=== PATIENT | female | born 1970 | race Caucasian/White ===

== ENCOUNTER 2017-09-02 08:42 | Observation (INO) | payer OTHER, SELFPAY ==
[2017-08-29 09:24] LABS: Anion Gap 13 (5-15); BUN 10 mg/dL (7-18); BUN/Creat Ratio 15.2 RATIO (10-20); Calcium,Total 8.8 mg/dL (8.5-10.1); Chloride 103 mmol/L (98-107); Creatinine, Serum 0.66 mg/dL (0.55-1.02); EST Glomerular Filtration Rate 103 mL/min (>60); Est Glom Filt Rate - Afr Amer 124 mL/min (>60); Glucose 258 mg/dL (74-106); Potassium 3.6 mmol/L (3.5-5.1); Sodium Level 137 mmol/L (136-145)
[2017-08-29 09:33] LABS: Hemoglobin A1c 8.4 % (4.2-6.3)
--- NOTE | 2017-08-31 14:44 | PCM.HP.BLA ---
History and Physical Date of Admission: 09/01/17 Referring Provider: Chidi Thornton MD Primary Provider: Pastor Overton MD CC: evaluation breast reconstruction History of Present Illness: 46 year old woman presents for discussion of breast reconstruction after recent diagnosis of right breast cancer from a biopsy on 07/14/17. Pathology showed invasive lobular carcinoma. The estrogen receptors are positive and the progesterone receptors are positive and Her-2Neu was negative for overexpression. The initial mammogram was on 06/04/17. On 07/28/17, she underwent an MRI which showed a probable second primary on the right breast and the left breast was negative. There were increased axillary lymph nodes. A lymph node biopsy was done on 07/30/17 which was negative for carcinoma. With this recent diagnosis of right breast cancer, she is getting nervous about the possibility of developing breast cancer in her left breast sometime in her lifetime. Because of this cancer phobia, she is interested in a prophylactic mastectomy on the left. She would then proceed with bilateral breast reconstruction. Past Medical History: Right breast cancer. Diabetes Hypertension Past Surgical History: appendectomy MEDICATIONS Vitamin D3. Iron Sulfate. Losartan. Metformin. Sitagliptin. ALLERGIES None. Family History Summary: Colon cancer - Father and Mother and Sister. Hypertension - Mother and Sister. Lung cancer - Mother. negative for skin cancer. Social History: Alcohol Use - yes Drug Use - no Patient has never smoked. Risk Factors: Smoked Tobacco Use: Never smoker Smokeless Tobacco Use: Never Passive smoke exposure: no Drug use: no HIV high-risk behavior: no Caffeine use: 1 drinks per day Alcohol use: yes Type: wine or beer Has patient -- [place] need to cut down: no Been annoyed by complaints: no [place] guilty about drinking: no Needed eye legal librarian in the morning: no Comments: social Counseled to quit/cut down alcohol use: no Exercise: yes Seatbelt use: 100 % Sun Exposure: occasionally Family History Risk Factors: Family History of HI in females < 65 years old: no Family History of HI in males < 55 years old: no Dietary Counseling: yes Review of Systems General - Denies fever, fatigue and weight loss. Eyes - Denies eye pain. ENT - Denies nasal congestion and sore throat. CV - Denies chest pain or discomfort, fatigue, lightheadedness and shortness of breath with exertion. Resp - Denies cough and shortness of breath. GI - Denies nausea, vomiting, diarrhea and constipation. - Denies blood in urine and urinary frequency. MS - Denies joint pain, back pain, stiffness, muscle weakness and arthritis. Derm - Denies skin cancer. Neuro - Denies poor balance, headaches and weakness. Psych - Denies anxiety and depression. Endo - Denies excessive urination and excessive thirst. Has diabetes mellitus. Has recent diagnosis of right breast cancer. Heme - Denies bleeding and abnormal bruising. Vital Signs: Patient Profile: 46 Years Old Female Height: 66.50 inches Weight: 233 pounds BMI: 37.04 BSA: 2.15 Physical Exam General - well developed, well nourished, in no acute distress. Head - normocephalic and atraumatic. No suspicious lesions noted Eyes - PERRL/EOM intact, conjunctiva and sclera clear. Ears - No suspicious lesions noted Nose - No suspicious lesions noted Mouth - No suspicious lesions noted Neck - no masses, thyromegaly, or abnormal cervical nodes. Chest Wall/Breasts - Breasts are soft. There is some thickening in the inferolateral aspect right breast. In the area of the breast biopsy. No breast masses left breast. No axillary adenopathy. Stage III ptosis present with the nipple located at the lowest point of the breast. Distance from midclavicular line on the right to the nipple is 30 cm and from the nipple to the inframammary fold is 8 cm. Distance from midclavicular line on the left to the nipple is 31 cm and from the nipple to the inframammary fold is 8 cm. Breast width is 15 cm bilaterally. Lungs - clear bilaterally to auscultation. Heart - regular rate and rhythm. Abdomen - Soft and non distended. Some redundant skin and subcutaneous tissue between the umbilicus and the pubic area. No hernias noted. Pulses - radial pulses are palpable. Extremities - no clubbing, cyanosis, edema. No suspicious lesions noted Neurologic - cranial nerves II-XII grossly intact. Skin - no rashes. Cervical Nodes - no significant adenopathy. Axillary Nodes - no significant adenopathy. Psych - alert and cooperative; normal mood and affect; normal attention span and concentration. Assessment and Plan 1. Right breast cancer. 2. Cancer phobia left breast. 3. Planned acquired absence bilateral breasts. 4. Planned disproportion reconstructed breasts. The different types of breast reconstruction were discussed with the patient. They range from expanders/implants to autogenous tissue to a combination of the two. The centerless grinding machine adjuster/implants are a shorter procedure with a quicker recovery period. And therefore getting back to work and to her activities of daily living sooner. Using autogenous tissue is more complex with longer procedures and longer hospitalization and longer recovery periods. Additional surgery may be needed to debride and reshape the breasts as needed. Once everything has healed, then terminologist, there is minimal worry. With the implants, it is easier initially but terminologist there is more chance at revision surgery because of implant leakage or capsular scar tissue or asymmetry or increased pain. She initially thought about using autogenous tissue, but didn't like the idea of using the muscles for the bilateral reconstruction. She does Theo. She doesn't want to go to a tertiary center at this time for a microvascular free tissue transfer flap which spares most or all of the rectus abdominal muscle. So she has decided to proceed with the placement of tissue expanders followed by replacement cohesive gel implants. Because of the ptosis that is present, we will use a breast lift incision for the mastectomy to reshape the breast skin envelope. This entails a vertical incision and a horizontal incision. The Tzone area can be slow to heal which is not a problem usually unless she needs chemotherapy in a timely fashion. Because of the possible need for chemotherapy, it would be safer to proceed with the mastectomy using a vertical incision. There is no Tzone area to be problematic. Once the adjuvant therapy is done, can reshape the skin envelope if need be with a horizontal excision to complete the breast lift at the time of the removal of the centerless grinding machine adjuster with replacement cohesive gel implant. Another option for the patient but is a little more at risk than the expanders is to place breast implants at the time of the mastectomies. Therefore the vertical and horizontal incision would be done to basically have a breast lift incision at the same time as placement of cohesive gel implants. The weight of the implants would put the Tzone at a little more risk of developing wound healing problems. Because of that increased risk, I generally would put in a slightly smaller implant to minimize the increased pressure on the Tzone. By doing the tissue expanders first, it is safer and after expansion, there is the option of putting in a slightly larger implant. Surgery will be under general anesthesia with a surgical observation overnight stay in the hospital. She will have drains in for several days and be maintained on antibiotics until the drains are removed. She will wear an QUIANA wrap for chest wall compression. I will perform the prophylactic mastectomy at the same time as Dr. Thornton performing the mastectomy on the right and sentinel lymph node biopsy. This would save on operative time. We would use separate instruments and separate staff to prevent possible spread of cancer to noncancerous left side. After the mastectomies, would proceed with immediate bilateral breast reconstruction with placement of submuscular saline tissue expanders and placement of acellular dermal matrix graft for complete centerless grinding machine adjuster coverage. The patient was informed of the risks and complications of the procedure including alternatives to surgery. These were discussed with the patient personally. The patient voices understanding and wishes to proceed. Some of the risks and complications were included in a form from the [employer].
--- NOTE | 2017-08-31 14:48 | HP.PCM_ITS ---
History and Physical Date of Admission: 09/01/17 Referring Provider: Chidi Thornton MD Primary Provider: Pastor Overton MD CC: evaluation breast reconstruction History of Present Illness: 46 year old woman presents for discussion of breast reconstruction after recent diagnosis of right breast cancer from a biopsy on 07/14/17. Pathology showed invasive lobular carcinoma. The estrogen receptors are positive and the progesterone receptors are positive and Her-2Neu was negative for overexpression. The initial mammogram was on . On 07/28/17, she underwent an MRI which showed a probable second primary on the right breast and the left breast was negative. There were increased axillary lymph nodes. A lymph node biopsy was done on 07/30/17 which was negative for carcinoma. With this recent diagnosis of right breast cancer, she is getting nervous about the possibility of developing breast cancer in her left breast sometime in her lifetime. Because of this cancer phobia, she is interested in a prophylactic mastectomy on the left. She would then proceed with bilateral breast reconstruction. Past Medical History: Right breast cancer. Diabetes Hypertension Past Surgical History: appendectomy MEDICATIONS Vitamin D3. Iron Sulfate. Losartan. Metformin. Sitagliptin. ALLERGIES None. Family History Summary: Colon cancer - Father and Mother and Sister. Hypertension - Mother and Sister. Lung cancer - Mother. negative for skin cancer. Social History: Alcohol Use - yes Drug Use - no Patient has never smoked. Risk Factors: Smoked Tobacco Use: Never smoker Smokeless Tobacco Use: Never Passive smoke exposure: no Drug use: no HIV high-risk behavior: no Caffeine use: 1 drinks per day Alcohol use: yes Type: wine or beer Has patient -- [place] need to cut down: no Been annoyed by complaints: no [place] guilty about drinking: no Needed eye syrup maker cook in the morning: no Comments: social Counseled to quit/cut down alcohol use: no Exercise: yes Seatbelt use: 100 % Sun Exposure: occasionally Family History Risk Factors: Family History of PR in females < 65 years old: no Family History of PR in males < 55 years old: no Dietary Counseling: yes Review of Systems General - Denies fever, fatigue and weight loss. Eyes - Denies eye pain. ENT - Denies nasal congestion and sore throat. CV - Denies chest pain or discomfort, fatigue, lightheadedness and shortness of breath with exertion. Resp - Denies cough and shortness of breath. GI - Denies nausea, vomiting, diarrhea and constipation. - Denies blood in urine and urinary frequency. MS - Denies joint pain, back pain, stiffness, muscle weakness and arthritis. Derm - Denies skin cancer. Neuro - Denies poor balance, headaches and weakness. Psych - Denies anxiety and depression. Endo - Denies excessive urination and excessive thirst. Has diabetes mellitus. Has recent diagnosis of right breast cancer. Heme - Denies bleeding and abnormal bruising. Vital Signs: Patient Profile: 46 Years Old Female Height: 66.50 inches Weight: 233 pounds BMI: 37.04 BSA: 2.15 Physical Exam General - well developed, well nourished, in no acute distress. Head - normocephalic and atraumatic. No suspicious lesions noted Eyes - PERRL/EOM intact, conjunctiva and sclera clear. Ears - No suspicious lesions noted Nose - No suspicious lesions noted Mouth - No suspicious lesions noted Neck - no masses, thyromegaly, or abnormal cervical nodes. Chest Wall/Breasts - Breasts are soft. There is some thickening in the inferolateral aspect right breast. In the area of the breast biopsy. No breast masses left breast. No axillary adenopathy. Stage III ptosis present with the nipple located at the lowest point of the breast. Distance from midclavicular line on the right to the nipple is 30 cm and from the nipple to the inframammary fold is 8 cm. Distance from midclavicular line on the left to the nipple is 31 cm and from the nipple to the inframammary fold is 8 cm. Breast width is 15 cm bilaterally. Lungs - clear bilaterally to auscultation. Heart - regular rate and rhythm. Abdomen - Soft and non distended. Some redundant skin and subcutaneous tissue between the umbilicus and the pubic area. No hernias noted. Pulses - radial pulses are palpable. Extremities - no clubbing, cyanosis, edema. No suspicious lesions noted Neurologic - cranial nerves II-XII grossly intact. Skin - no rashes. Cervical Nodes - no significant adenopathy. Axillary Nodes - no significant adenopathy. Psych - alert and cooperative; normal mood and affect; normal attention span and concentration. Assessment and Plan 1. Right breast cancer. 2. Cancer phobia left breast. 3. Planned acquired absence bilateral breasts. 4. Planned disproportion reconstructed breasts. The different types of breast reconstruction were discussed with the patient. They range from expanders/implants to autogenous tissue to a combination of the two. The plush weaver/implants are a shorter procedure with a quicker recovery period. And therefore getting back to work and to her activities of daily living sooner. Using autogenous tissue is more complex with longer procedures and longer hospitalization and longer recovery periods. Additional surgery may be needed to debride and reshape the breasts as needed. Once everything has healed, then fpc, there is minimal worry. With the implants, it is easier initially but terminal gauger there is more chance at revision surgery because of implant leakage or capsular scar tissue or asymmetry or increased pain. She initially thought about using autogenous tissue, but didn't like the idea of using the muscles for the bilateral reconstruction. She does Theo. She doesn't want to go to a tertiary center at this time for a microvascular free tissue transfer flap which spares most or all of the rectus abdominal muscle. So she has decided to proceed with the placement of tissue expanders followed by replacement cohesive gel implants. Because of the ptosis that is present, we will use a breast lift incision for the mastectomy to reshape the breast skin envelope. This entails a vertical incision and a horizontal incision. The Tzone area can be slow to heal which is not a problem usually unless she needs chemotherapy in a timely fashion. Because of the possible need for chemotherapy, it would be safer to proceed with the mastectomy using a vertical incision. There is no Tzone area to be problematic. Once the adjuvant therapy is done, can reshape the skin envelope if need be with a horizontal excision to complete the breast lift at the time of the removal of the plush weaver with replacement cohesive gel implant. Another option for the patient but is a little more at risk than the expanders is to place breast implants at the time of the mastectomies. Therefore the vertical and horizontal incision would be done to basically have a breast lift incision at the same time as placement of cohesive gel implants. The weight of the implants would put the Tzone at a little more risk of developing wound healing problems. Because of that increased risk, I generally would put in a slightly smaller implant to minimize the increased pressure on the Tzone. By doing the tissue expanders first, it is safer and after expansion, there is the option of putting in a slightly larger implant. Surgery will be under general anesthesia with a surgical observation overnight stay in the hospital. She will have drains in for several days and be maintained on antibiotics until the drains are removed. She will wear an QUIANA wrap for chest wall compression. I will perform the prophylactic mastectomy at the same time as Dr. Thornton performing the mastectomy on the right and sentinel lymph node biopsy. This would save on operative time. We would use separate instruments and separate staff to prevent possible spread of cancer to noncancerous left side. After the mastectomies, would proceed with immediate bilateral breast reconstruction with placement of submuscular saline tissue expanders and placement of acellular dermal matrix graft for complete plush weaver coverage. The patient was informed of the risks and complications of the procedure including alternatives to surgery. These were discussed with the patient personally. The patient voices understanding and wishes to proceed. Some of the risks and complications were included in a form from the [employer].
[2017-09-01] VITALS (12 sets, daily range): BP systolic 114–163; BP diastolic 62–84; PULSE 79–112; RESP 16–18; TEMP 36.3–37.3; O2SAT 92–99; BMI 38.3; BMI 39.7
--- NOTE | 2017-09-01 | AXNB_PTH ---
PATIENT: TOI DIXON LOC: MS2 U#:[id number] AGE/SX: 46/F ROOM: [facility] [place] RE09/02/[address]: Dr. Ignacio Merrill MD : 1970 BED: 1 DIS: 09/03/2017 SPEC #: [id number] RECD: 09/01/17 13:17 STATUS: CIELO RESkip #: [id number] GILLES: 09/01/17 00:[address]: Ignacio Merrill DEPT: SURGICAL PATHOLOGY RECD BY: June Puga ENTERED: 09/01/17 14:49 SP TYPE: AX NODE BX OTHR DR: Pastor Overton Tissues: A - Axillary lymph node, NOS B - Right breast, NOS C - Left breast, NOS D - Skin of breast, NOS Procedures: Frozen Section (charge) Frozen Section Add'l ([facility]) Surgery Specimen Level IV Surgery Specimen Level V Frozen (no charge) HEADER OPERATION: Mastectomy, prophylactic PRE-OP DIAGNOSIS: Right breast cancer, cancer phobia left breast, planned acquired absence bilateral breasts TISSUE SUBMITTED: A ? Right breast axillary sentinel lymph node sent for FS 1314, B ? Right breast sent fresh, C ? Left breast, D ? Right breast skin biopsy site FROZEN SECTION DIAGNOSIS A. Right axillary sentinel lymph node, biopsy: Seven out of seven lymph nodes, negative for metastatic carcinoma. SJ:case 09/01/17 MICROSCOPIC DIAGNOSIS A. Right axillary sentinel lymph node, biopsy: Seven out of seven lymph nodes negative for metastatic carcinoma. B. Right breast, mastectomy: Invasive lobular carcinoma. Focal ductal carcinoma in situ. Atypical lobular hyperplasia. C. Left breast, mastectomy: Fibrocystic changes and intraductal hyperplasia without atypia. Focal microcalcifications. Negative for carcinoma in the sections examined. D. Right breast, skin biopsy site: Skin with underlying tissue with dermal fibrosis, consistent with scar. Negative for carcinoma. INVASIVE BREAST CANCER SUMMARY: (Including specimen A, B & D) Specimen ? total breast (including nipple and skin). Procedure ? total mastectomy (including nipple and skin). Lymph node sampling ? sentinel lymph nodes Specimen integrity ? single, intact specimen Specimen laterality - right Tumor site ? middle and lower quadrant of breast. Tumor size ? 1 x 0.7 x 0.5 cm Tumor focality ? single focus of invasive carcinoma Macroscopic and Microscopic extent of tumor: Skin ? invasive carcinoma does not invade into the dermis or epidermis. Nipple ? ductal carcinoma in situ does not involve nipple epidermis. Skeletal muscle ? skeletal muscle is present and is free of carcinoma. Ductal carcinoma in situ (DCIS) ? ductal carcinoma in situ is present. Extensive intraductal component (EIC) ? present. Size of DCIS ? 0.6 x 0.6 cm. Number of block with DCIS ? 1 Number of examined ? 12 Architectural pattern ? solid Nuclear features ? grade II-III (intermediate to high) Necrosis ? not identified. Other findings ? cancerization of lobules and atypical ductal hyperplasia.. Lobular carcinoma in situ (LCIS) ? not identified.. Histologic type of invasive carcinoma ? invasive lobular carcinoma, pleomorphic variant. Histologic Grade (Michelle grade): Glandular/tubular differentiation - score 3 Nuclear pleomorphism - score 3 Mitotic count ? score 2 Overall grade - 3 (score of 8) Margins ? Invasive carcinoma is 0.5 cm away from the closest inferior margin. See comment.. Lymph-Vascular invasion ? not identified Dermal lymph-vascular invasion - not identified Lymph nodes: Number of sentinel lymph nodes examined - 7 Total number of lymph nodes examined (sentinel and nonsentinel) - 7 Number of lymph nodes with macrometastases, micrometastases and isolated tumor cells - 0 Method of evaluation of sentinel lymph nodes - H & E, multiple levels and IHC. Distance metastasis ? not applicable Additional pathologic findings ? fibrocystic changes and intraductal hyperplasia.. Multifocal atypical lobular hyperplasia. . Ancillary studies - previously performed on section of tumor ([id number] / [id number]). ER ? positive (>95%, moderate to strong) KS ? positive (>95%, moderate to strong) Her2 kamlesh ? (negative) 0 Her2 by dual KIMBERLYN ? not performed Microcalcifications ? not identified Clinical history - Please make reference to previous specimen ([id number]) right breast, stereotactic needle core biopsy with diagnosis of invasive lobular carcinoma. PATHOLOGIC STAGE: pT1b pN0 Mx The above summary is in compliance with [employer] (CAP) Cancer Protocols Checklist and [place] [employer] Committee on Cancer (AJCC), Staging Manual, 8th Ed. SJ:rg 09/03/17 COMMENT A. The lymph nodes are negative for metastatic carcinoma on multiple H & E levels and immunohisto-chemical stains for cytokeratins ([id number]). B. Immunohistochemistry supports the diagnosis of invasive lobular carcinoma (block B4) and ductal carcinoma in situ (B11). Atypical ductal hyperplasia is also noted in the area of ductal carcinoma in situ. Ductal carcinoma in situ is present in the circulation sales representative sections submitted as away from the invasive carcinoma (block B11). Distance from margin can not be assessed as it is not grossly indentified. Overall, the margins are free of ductal carcinoma in situ. MICROSCOPIC DESCRIPTION Slides are reviewed. GROSS DESCRIPTION A - Received fresh for frozen section diagnosis labeled with the patient's name is a specimen designated right breast axillary sentinel lymph node. The specimen consists of a piece of adipose tissue containing multiple nodules consistent with lymph nodes measuring 6 x 4.5 x 2 cm. The lymph nodes measure 0.5 to 4 cm in greatest dimension and are submitted entirely for frozen section diagnosis. Event Manager sections are submitted as follows: 1 ? frozen section, two lymph nodes, 2 ? frozen section, two lymph nodes, 3 - frozen section, one bisected lymph node, 4 - frozen section, one lymph node, 5-7 ? one serially sectioned largest lymph node. / SJ:rg 09/01/17 B - Received fresh is one container labeled with the patient's name and designated right breast. The specimen consists of a mastectomy specimen consisting of breast tissue with overlying skin ellipse. The specimen is oriented by surgeon and gross is reviewed along with surgeon in person. The breast tissue measures 21 x 20 x 7 cm and the skin measures 14 x 17 cm and nipple measures 1.5 cm. The specimen is inked as follows: anterior ? yellow, posterior ? black, superior ? blue, inferior ? green, medial ? red and lateral ? orange. Serial sections reveal a biopsy cavity measuring 2 cm in greatest dimension and a tumor mass adjacent to the biopsy cavity measuring 1 x 0.7 x 0.5 cm. The mass is present in the middle and lower portion of the breast tissue. This mass is 1 cm away from the posterior margin and 0.7 cm away from the inferior margin. Sections of the rest of the specimen reveal kyle-yellow adipose cut surfaces mixed with kyle-white fibrous areas. Event Manager sections are submitted in 12 cassettes as follows: 1 ? nipple, entirely submitted, 2 ? perpendicular medial, lateral margin and skin, 3 ? perpendicular posterior and superior margin, 4 & 5 ? tumor with closest inferior margin, 6 & 7 ? biopsy cavity, tumor and biopsy cavity are submitted in entirety, 8-10 - circulation sales representative sections adjacent to the tumor and biopsy cavity, 11 & 12 - circulation sales representative sections away from the tumor and biopsy cavity. / SJ:case 09/02/17 C - Received in fixative is one container labeled with the patient's name and designated left breast. The specimen consists of a mastectomy specimen consisting of breast tissue with overlying skin ellipse. The breast tissue measures 19 x 18 x 6 cm and the overlying skin ellipse measures 11 x 4 cm and nipple measures 1.5 cm in greatest dimension. The specimen is inked as follows: superior ? black, inferior ? green, medial ? red, lateral ? orange, anterior ? yellow, posterior ? blue. Serial sections reveal yellow adipose cut surfaces mixed with scant kyle-white fibrous area. No mass lesion is identified. Also present in the container are four variable size pieces of yellow adipose tissue measuring in aggregate 5 x 3 x 0.5 cm. More dictation will follow after overnight fixation. / SJ:case 09/01/17 Event Manager sections are submitted in 12 cassettes as follows: 1 ? nipple, entirely submitted, 25 ? lateral portion of breast tissue, 6-9 ? middle portion of breast tissue, 10-12 ? medial portion of breast tissue (cassette 12 also contains the skin piece). / SJ:case 09/02/17 D - Received in fixative is one container labeled with the patient's name and designated right breast skin biopsy site. The specimen consists of a piece of skin with underlying tissue measuring 1 x 0.4 cm and up to 2 cm in thickness. The specimen is bisected and submitted entirely in one cassette. / SJ:case 09/01/17 TC:0 CPT: 00197 x3, 22153, 65308, 11173, 23971 x6
--- NOTE | 2017-09-01 | IMM_PTH ---
PATIENT: TOI DIXON LOC: MS2 U#:[id number] AGE/SX: 46/F ROOM: [facility] – [place] RE09/02/[address]: Dr. Ignacio Merrill MD : 1970 BED: 1 DIS: 09/03/2017 SPEC #: [id number] RECD: 09/03/17 13:53 STATUS: CIELO REQ #: [id number] GILLES: 09/01/17 00:[address]: Ignacio Merrill DEPT: IMMUNOHISTOCHEMISTRY RECD BY: June Puga ENTERED: 09/03/17 13:58 SP TYPE: IMMUNO OTHR DR: MD Pastor Abarca Tissues: A - Axillary lymph node, NOS B - Right breast, NOS Procedures: E-CAD (initial) CK7 (add) CK8 (add) E-CAD (add) Pankeratin (initial) Pankeratin (add) PHYSICIAN & INSTITUTION [place] [id number] SPECIMEN INFORMATION: Tissue Source: A ? Right breast axillary sentinel lymph node, B ? Right breast Clinical Info: Right breast cancer Specimen Number: [id number] A1-A7, B4, B11 CPT code: 67545 x2, 18759 x16 METHODOLOGY: Deparaffinized sections of prefer/formalin-fixed tissue or PAP/DQ stained slides are incubated with monoclonal/polyclonal antibodies/oligonucleotide probes. Localization is made via biotin free immunoperoxidase method. Appropriate controls are performed and reacted as expected. Results on target cell population are indicated in the following table: RESULTS: ANTIBODY / CLONE RESULT Block A1 AE1-3 (AE1/AE3/PCK26) negative CK7 (OV-TL12/30) negative Block A2 AE1-3 (AE1/AE3/PCK26) negative CK7 (OV-TL12/30) negative Block A3 AE1-3 (AE1/AE3/PCK26) negative CK7 (OV-TL12/30) negative Block A4 AE1-3 (AE1/AE3/PCK26) negative CK7 (OV-TL12/30) negative Block A5 AE1-3 (AE1/AE3/PCK26) negative CK7 (OV-TL12/30) negative Block A6 AE1-3 (AE1/AE3/PCK26) negative CK7 (OV-TL12/30) negative Block A7 AE1-3 (AE1/AE3/PCK26) negative CK7 (OV-TL12/30) negative Block B4 E-Cad (ECH-6) negative CK8 (06parrJ35) positive Block B11 E-Cad (ECH-6) positive CK8 ([id number]) positive These tests were developed and their performance characteristics determined by [facility]. They may not have been cleared or approved by the U.S. Food and Drug Administration. The FDA has determined that such clearance or approval is not necessary. INTERPRETATION: A. Right breast axillary sentinel lymph node, biopsy: Seven out of seven lymph nodes negative for metastatic carcinoma. B. Right breast: Invasive lobular carcinoma (B4). Ductal carcinoma in situ (B11). SJ:case 09/04/17
[2017-09-01 10:24] LABS: Internal QC Validated? YES +Cl - CLEAR BKGD; Pregnancy, Urine Negative Negative
[2017-09-01 10:36] LABS: Bedside Glucose 261 mg/dL (70-110)
[2017-09-01 10:58] LABS: Hemoglobin A1c 8.6 % (4.2-6.3)
[2017-09-01] MEDS: Isosulfan Blue 1% 5 ML Vial (12:24)
--- NOTE | 2017-09-01 12:25 | PCM.OPRPT ---
Problem List (1) Malignant neoplasm of upper-outer quadrant of right female breast Status: Acute Qualifiers: Estrogen receptor status: positive Qualified Code(s): C50.411 - Malignant neoplasm of upper-outer quadrant of right female breast; Z17.0 - Estrogen receptor positive status [ER+] Report of Operation Date of Procedure: 09/01/17 Pre-Operative Diagnosis: c50.411 malignant neoplasia of the upper outer quadrant of right breast and female estrogen receptor positive Post-Operative Diagnosis: same Surgery/Procedure Performed:: 1. 41141 Injection of 5 cc of Lymphazurin blue. 2. Mastectomy. 3. 72823 Gulliver lymph node biopsy Type of Anesthesia:: General Anesthesiologist: Berenice Garcia Estimated Blood Loss (mL): < 50 cc Fluids Replaced: 1 L Description of Procedure: Patient was brought into the operating room placed in the supine position under excellent general endotracheal intubation. The right nipple was injected with 7 cc of Lymphazurin blue and massaged for 5 minutes. Bilateral breasts were then sterilely prepped and draped in the usual fashion. Dr. Merrill will dictate and performed a prophylactic mastectomy on the left side. An oblique inverted incision was made around the right nipple areolar complex. Plasma blade was used to create flaps and a simple mastectomy on the right side. I took the dissection all the way down to the fascia. I then removed the breast from the pectoralis major muscle starting inferiorly where the rectus abdominis muscles met the pectoralis major muscle and then medially where the sternum was located. The breast was taken off rotated from the medial to lateral standpoint. I came to the lateral border of the pectoralis major muscle. I entered the clavipectoral fascia where I saw a large grouping of blue lymph nodes. I remove these with a harmonic dissector. I sent them to pathology and frozen section confirmed lymph nodes and all of them were negative. I remove the breast laterally down to the clavipectoral fascia and sent to pathology where the specimen was located. I made an elliptical incision around the previous biopsy site in the skin. A separate stab incision was made inferiorly a 15 round James-Belle drain was sutured to the skin and brought into the operating field. The skin was brought together with deep dermal stitches of 3-0 Vicryl in a running 4-0 Monocryl. The elliptical incision was brought together with deep dermal stitches a 3-0 Vicryl and then the skin was brought together with interrupted 5-0 nylon. Sterile dressings were applied by Dr. Merrill. The patient tolerated the procedure well. - Admit VTE Documentation VTE Present on Admission: No VTE Mechan Device Prophylaxis: SCD's VTE Pharm Prophylaxis ordered?: No Reason prophylaxis not ordered:: Treatment Not Indicated
[2017-09-01] MEDS: Cefazolin 2 GM in 0.9% Normal Saline 100 ML IV (12:30)
--- NOTE | 2017-09-01 14:01 | PCM.IMDPSTOP ---
Immediate Post-Op Note Date of Procedure: 09/01/17 Primary Surgeon/Physician: Ignacio Merrill pharmacy billing adjudicator: Zora Awan. Pre-Operative Diagnosis: 1. Right breast cancer. 2. Cancer phobia left breast. 3. Planned acquired absence bilateral breasts. 4. Planned disproportion reconstructed breasts. 5. Estrogen receptor positive status. Post-Operative Diagnosis: Same. Surgery/Procedure Performed:: Prophylactic mastectomy left breast. Description of Surgical Findings:: 46 year old woman presents for discussion of breast reconstruction after recent diagnosis of right breast cancer from a biopsy on 07/14/17. Pathology showed invasive lobular carcinoma. The estrogen receptors are positive and the progesterone receptors are positive and Her-2Neu was negative for overexpression. The initial mammogram was on 06/04/17. On 07/28/17, she underwent an MRI which showed a probable second primary on the right breast and the left breast was negative. There were increased axillary lymph nodes. A lymph node biopsy was done on 07/30/17 which was negative for carcinoma. With this recent diagnosis of right breast cancer, she is getting nervous about the possibility of developing breast cancer in her left breast sometime in her lifetime. Because of this cancer phobia, she is interested in a prophylactic mastectomy on the left. She would then proceed with bilateral breast reconstruction. Her HgbA1c was elevated at 8.6. We will proceed with the mastectomies. However the breast reconstruction is elective, and the risk of wound healing problems increase when the HgbA1c is > 8. So the breast reconstruction with placement of saline tissue expanders will not occur today. Once the HgbA1c dips below 8, we can proceed with her breast reconstruction surgery. Today the patient underwent injection of 5 cc of Lymphazurin blue and right mastectomy and sentinel lymph node biopsy by Dr. Thornton and prophylactic mastectomy left breast by Dr. Merrill. I used Jayde absorbable hemostat (2 vials, one in each breast). Reference Number - [id number]. Lot Number - [id number]. Expiration - May 02, 2022. Estimated Blood Loss: 100 ml. Specimen's removed: Left breast tissue to Pathology. Drains: Dick x2 (one in each breast). Type of Anesthesia:: General - Admit VTE Documentation VTE Present on Admission: No VTE Mechan Device Prophylaxis: SCD's VTE Pharm Prophylaxis ordered?: Yes
[2017-09-01 14:56] LABS: Bedside Glucose 248 mg/dL (70-110)
[2017-09-01 17:06] LABS: Bedside Glucose 247 mg/dL (70-110)
[2017-09-01] MEDS: oxyCODONE 5 MG Tablet 10 MG PO (19:16)
[2017-09-01] MEDS: Cefazolin 1 GM/50 ML BAG IV (20:13)
[2017-09-01] MEDS: Lactated Ringers 1,000 ML 60 ML IV (20:13)
[2017-09-01] MEDS: Docusate Sodium 100 MG Capsule PO (20:14)
[2017-09-01 22:31] LABS: Bedside Glucose 184 mg/dL (70-110)
--- NOTE | 2017-09-01 23:54 | PCM.OPRPT ---
Report of Operation Date of Procedure: 09/01/17 Pre-Operative Diagnosis: 1. Right breast cancer. 2. Cancer phobia left breast. 3. Planned acquired absence bilateral breasts. 4. Planned disproportion reconstructed breasts. 5. Estrogen receptor positive status. Post-Operative Diagnosis: Same. Surgery/Procedure Performed:: Prophylactic mastectomy left breast. Description of Surgical Findings:: 46 year old woman presents for discussion of breast reconstruction after recent diagnosis of right breast cancer from a biopsy on 07/14/17. Pathology showed invasive lobular carcinoma. The estrogen receptors are positive and the progesterone receptors are positive and Her-2Neu was negative for overexpression. The initial mammogram was on 06/04/17. On 07/28/17, she underwent an MRI which showed a probable second primary on the right breast and the left breast was negative. There were increased axillary lymph nodes. A lymph node biopsy was done on 07/30/17 which was negative for carcinoma. With this recent diagnosis of right breast cancer, she is getting nervous about the possibility of developing breast cancer in her left breast sometime in her lifetime. Because of this cancer phobia, she is interested in a prophylactic mastectomy on the left. She would then proceed with bilateral breast reconstruction. Her HgbA1c was elevated at 8.6. We will proceed with the mastectomies. However the breast reconstruction is elective, and the risk of wound healing problems increase when the HgbA1c is > 8. So the breast reconstruction with placement of saline tissue expanders will not occur today. Once the HgbA1c dips below 8, we can proceed with her breast reconstruction surgery. The patient was informed of the risks and complications of the procedure including alternatives to surgery. These were discussed with the patient personally. The patient voices understanding and wishes to proceed. Some of the risks and complications were included in a form from the [place] [employer]. I used Jayde absorbable hemostat (2 vials, one in each breast). Reference Number - [id number]. Lot Number - [id number]. Expiration - May 02, 2022. bioinformatics associate: Zora Awan. Type of Anesthesia:: General Anesthesiologist: Berenice Garcia Specimen's removed: Left breast tissue to Pathology. Drains: Dick x 2 (one in each breast). Estimated Blood Loss (mL): 100 ml. Fluids Replaced: 1 L Description of Procedure: Patient was seen in the preop area and in the sitting position, markings were made. I loren longitudinal markings around the nipple areolar complex and extending upward to where the new location of a nipple reconstruction would be placed and downward to just above the inframammary fold. She was then taken to the OR in supine position and was placed under general anesthesia. Her breasts were prepped and draped in the usual fashion. A soliman catheter was not placed because it is anticipated the length of time for the surgery will be less than 2 hours. SCD's were placed for DVT prophylaxis. Perioperative antibiotics were given intravenously. Dr. Thornton worked on the right side with separate instruments and separate staff. I worked on the left side with separate instruments and separate staff to prevent contamination of potential cancer cells from the cancerous right breast to the non-cancerous left breast. I infiltrated the markings on the skin with xylocaine with epinephrine. After waiting 5 minutes for the anesthetic to take effect, Incisions were made in a vertical longitudinal fashion encompassing the nipple areolar complex. I dissected the breast tissue from the subcutaneous tissue of the breast skin flap at the level of Moo's fascia. Dissection was carried down to the chest wall at the level of the pectoralis major muscle. Dissection was extended superiorly to the clavicle and medially to the sternum and inferiorly to the inframammary fold and laterally to the anterior axillary line. The breast tissue was then removed and sent to Pathology for analysis to rule out carcinoma. Hemostasis was obtained with electrocautery. The wound was irrigated with saline. I placed a size 15 Dick drain through a separate stab incision laterally and secured to the skin with 3-0 Nylon suture. I then sprayed Jayde absorbable hemostat into the breast wound to minimize seroma formation. The vertical breast incision was then closed with 3-0 Monocryl interrupted sutures for the deep dermis and subcutaneous tissue. The skin was approximated with 3-0 Vlock unidirectional barbed running subcuticular suture. This was followed by Histoacryl skin tissue adhesive. When Dr. Thornton was finished with the mastectomy and sentinel lymph node biopsy on the right, the vertical breast incision on the right was closed in a similar fashion. There was also small horizontal incision superiorly where the biopsy occurred that was closed with 3-0 Monocryl interrupted sutures for the deep dermis and subcutaneous tissue. The skin was approximated with 5-0 Nylon simple interrupted sutures. Hemostasis was obtained with electrocautery. The wound was irrigated with sterile water. A size 15 Dick drain was placed through a separate stab incision laterally and secured to the skin with 3-0 Nylon suture. Jayde absorbable hemostat was sprayed into the wound to minimize seroma formation. The vertical incision was closed in multiple layers with 3-0 Monocryl interrupted sutures for the deep dermis and subcutaneous tissue. The skin was approximated with 3-0 Vlock unidirectional barbed running subcuticular suture. This was followed by Histoacryl skin tissue adhesive. Kerlix gauze was applied to the breast incisions followed by a chest wall binder as compression to minimize seroma formation. Patient tolerated the procedure well and was sent to PACU in satisfactory condition. She will be sent upstairs for surgical observation overnight stay in the hospital. She will keep her head elevated during the initial postop period. She will have her drains in for 10-14 days and be maintained on antibiotics until the drains are removed. Her HgbA1c today was 8.6. So no elective breast reconstruction was done today. Will recheck it again in the next 1-2 months until it dips below 8 at which time we can proceed with her breast reconstruction surgery. Grafts/Implants Used: None. - Complications None. - Admit VTE Documentation VTE Present on Admission: No VTE Mechan Device Prophylaxis: SCD's VTE Pharm Prophylaxis ordered?: Yes Code Visit Surgery Charges CPT - 80253 ICD-10 - C50.911, F40.298, Z90.13, N65.1, Z17.0
[2017-09-02 04:20] VITALS: BP 106/65; PULSE 86; RESP 18; TEMP 36.6; O2SAT 93
[2017-09-02] MEDS: Cefazolin 1 GM/50 ML BAG IV ×3 (04:25→20:44)
[2017-09-02 05:54] LABS: Hematocrit 34.6 % (37-47); Hemoglobin 11.8 g/dl (12.0-15.0); Mean Corp Hgb Conc 34.1 g/gl (32-36); Mean Corpuscular Hgb 29.4 pg (27.0-32.0); Mean Corpuscular Volume 86.1 fL (81-99); Mean Platelet Vol. 9.1 fl (6.2-12.0); Platelet Count 273 K/mm3 (150-450); RBC Distribution Width CV 14.1 % (11.6-14.6); RBC Distribution Width SD 43.1 fl (35.1-43.9); Red Blood Count 4.02 M/mm3 (4.2-5.4); White Blood Count 8.8 K/mm3 (4.4-11.0)
[2017-09-02 05:58] LABS: Scan Indicated on CBC? Y/N NO
[2017-09-02] MEDS: oxyCODONE 5 MG Tablet 10 MG PO ×2 (06:19→17:18)
[2017-09-02] MEDS: Enoxaparin 40 MG/0.4 ML Syringe SC (06:20)
[2017-09-02 06:21] LABS: Bedside Glucose 267 mg/dL (70-110)
[2017-09-02 06:23] LABS: Anion Gap 8 (5-15); BUN 11 mg/dL (7-18); BUN/Creat Ratio 14.7 RATIO (10-20); Chloride 104 mmol/L (98-107); Creatinine, Serum 0.75 mg/dL (0.55-1.02); EST Glomerular Filtration Rate 89 mL/min (>60); Est Glom Filt Rate - Afr Amer 107 mL/min (>60); Estimated Creatinine Clearance 80.94 ml/min; Glucose 282 mg/dL (74-106); Potassium 3.6 mmol/L (3.5-5.1); Prealbumin 20.4 mg/dL (20.0-40.0); Sodium Level 137 mmol/L (136-145)
[2017-09-02] MEDS: diazePAM 5 MG Tablet PO (08:21)
[2017-09-02] MEDS: metFORMIN HCl 1,000 MG Tablet 1000 MG PO (08:24)
--- NOTE | 2017-09-02 08:42 | PCM.PN.SRG ---
Patient Problems: Active and Suspected Problems (Last Reviewed 08/17/17 @ 13:48 by Chidi Thornton MD) Malignant neoplasm of upper-outer quadrant of right female breast (Acute) Subjective: Patient evaluated resting comfortably in bed. She notes minimal discomfort. She notes most of her discomfort is in her right axilla. Patient denies nausea, vomiting. - Physical Exam General: Alert, Oriented x3, Cooperative Lungs: Clear to auscultation, Normal air movement Cardiovascular: Regular rate, No murmurs Skin: Incision - Bilateral breast incision- c/d/i. Dressing was changed. No necrosis, erythema or active drainage noted. JANESSA drains intact. SA fluid noted. Vital Signs Temp Pulse Resp BP Pulse Ox 97.9 F 86 18 106/65 93 09/02/17 04:20 09/02/17 04:20 09/02/17 04:20 09/02/17 04:20 09/02/17 04:20 Oxygen Delivery Method Room Air Weight: 232 lb 12.93 oz Body Mass Index (BMI) 39.7 Intake and Output for Last 24 Hours 08/31/17 09/01/17 09/02/17 23:59 23:59 23:59 Intake Total 1500 / 1500 883 / 883 Output Total 375 / 375 2285 / 2285 Balance 1125 / 1125 -1402 / -1402 Laboratory Tests Past 24 Hrs 09/01/17 09/01/17 09/02/17 10:00 10:30 05:28 WBC RBC Hgb Hct MCV MCH MCHC RDW RDW Differential Plt Count MPV Sodium 137 Potassium 3.6 Chloride 104 Carbon Dioxide 25.0 Anion Gap 8 BUN 11 Creatinine 0.75 Estim Creat Clear Calc 80.94 Est GFR (MDRD) Af Amer 107 Est GFR (MDRD) Non-Af 89 BUN/Creatinine Ratio 14.7 Glucose 282 H Hemoglobin A1c 8.6 H Calcium 8.0 L Prealbumin 20.4 Urine Test Negative 09/02/17 05:28 WBC 8.8 RBC 4.02 L Hgb 11.8 L Hct 34.6 L MCV 86.1 MCH 29.4 MCHC 34.1 RDW 14.1 RDW Differential 43.1 Plt Count 273 MPV 9.1 Sodium Potassium Chloride Carbon Dioxide Anion Gap BUN Creatinine Estim Creat Clear Calc Est GFR (MDRD) Af Amer Est GFR (MDRD) Non-Af BUN/Creatinine Ratio Glucose Hemoglobin A1c Calcium Prealbumin Urine Test POC Glucose 09/02/17 09/01/17 09/01/17 06:15 22:12 16:50 POC Glucose 267 H 184 H 247 H 09/01/17 09/01/17 14:51 10:16 POC Glucose 248 H 261 H Assessment/Plan Active and Suspected Problems (Last Reviewed 08/17/17 @ 13:48 by Chidi Thornton MD) Malignant neoplasm of upper-outer quadrant of right female breast (Acute) I am following this patient in conjunction with Dr. Thornton S/p Bilateral mastectomy with right axillary sentinel lymph node biopsy for right breast cancer. Dr. Merrill performed a prophylactic left mastectomy Pain fairly well controlled Patient seems to be progressing very nicely Probable discharge pending Dr. Merrill's recommendations We will continue to monitor this patient
[2017-09-02 08:55] VITALS: BP 144/79; PULSE 95; RESP 18; TEMP 37.2; O2SAT 96
[2017-09-02] MEDS: Docusate Sodium 100 MG Capsule PO ×2 (10:00→20:41)
[2017-09-02] MEDS: LINAGLIPTIN 5 MG TABLET PO (10:00)
[2017-09-02] MEDS: Losartan Potassium 50 MG Tablet PO (10:00)
[2017-09-02] MEDS: Glucerna Shake 120 ML LIQUID PO ×4 (10:07→20:40)
[2017-09-02] MEDS: Ferrous Sulfate 325 MG Tablet PO (11:46)
[2017-09-02] MEDS: Lactated Ringers 1,000 ML 60 ML IV (11:48)
[2017-09-02 12:01] LABS: Bedside Glucose 324 mg/dL (70-110)
[2017-09-02 13:38] VITALS: BP 111/77; PULSE 94; RESP 18; TEMP 37.4; O2SAT 96
--- NOTE | 2017-09-02 16:36 | NURSING ---
AMBULATED IN HALLWAYS WITH SIG OTHER.
--- NOTE | 2017-09-02 18:02 | CON.PCM_ITS ---
Reason for Consult Date of Consultation: 09/02/17 Reason for Consultation: Medical consultation History of Present Illness: The patient is a 46 y/o F w/ PMHx: R sided Breast CA, Diabetes mellitus type II , HTN, Obesity, Fe Deficiency Anemia who presents to the [facility] for planned prophylactic mastectomy L breast, R breast mastectomy w/ lymph node dissection and then transition to bilateral breast reconstruction per Dr. Merrill and Dr. Thornton. The patient has diagnosis for R breast CA from Bx performed on 07/14/17 with pathology demonstrating invasive lobular carcinoma w/ ER +, HI +, Her-2Neu -. She had prior MRI which showed a probable secondary primary in the R breast and the left breast was negative for findings with noted increased axillary lymph nodes with Bx performed which was negative. She decided to have prophylactic mastectomy. Past Medical History Past Medical History (Chronic Problems): Chronic Problems (Last Reviewed 08/17/17 @ 13:48 by Chidi Thornton MD) HTN (hypertension) (Chronic) Allergies No Known Allergies Allergy (Verified 08/26/17 14:10) Home Medications: Ambulatory Orders Medication Instructions Recorded cholecalciferol (vitamin D3) 5,000 5,000 unit PO ONCE 06/30/17 unit capsule ferrous sulfate 325 mg (65 mg 65 mg PO DAILY tab 06/30/17 iron) tablet losartan 100 mg tablet 50 mg PO QDAY 06/30/17 metformin 500 mg tablet 1,000 mg PO DAILY 06/30/17 sitagliptin 100 mg tablet 100 mg PO QDAY 06/30/17 diazepam 5 mg tablet See Label Instructions PO .4/day 08/31/17 PRN #30 tab Surgical History: - - Appendectomy, recent intervention per Dr. Merrill w/ prophylactic mastectomy L breast, R breast mastectomy w/ lymph node dissection,. 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 Denies: Chills, Fever, Weight Change HEENT: Denies: Head Aches, Sinus Congestion, Sinus Drainage Cardiovascular: Reports: Chest Pain. Denies: Palpitations Respiratory: Denies: Cough, Shortness of breath at rest, Sputum production Gastrointestinal: Denies: Abdominal Pain, Nausea, Vomiting Genitourinary: Denies: Dysuria Musculoskeletal: Denies: Joint Pain, Joint Tenderness Skin: Reports: Skin Changes. Denies: Rash, Wounds Neurological: Denies: Numbness, Tingling, Focal weakness Psychiatric: Reports: Anxiety. Denies: Depression, Homicidal Ideations, Suicidal Ideations Hematologic/ Lymphatic: Denies: Easy Bruising, Easy Bleeding Patient Problems: Active and Suspected Problems (Last Reviewed 08/17/17 @ 13:48 by Chidi Thornton MD) Malignant neoplasm of upper-outer quadrant of right female breast (Acute) Subjective: Seated upright in bed, fatigued appearing, notes recent pain regimen so feeling improved. Objective: Physical Examination: General: awake, alert, oriented x 3 and cooperative, seated upright in bed in no apparent distress. Skin: normal color, turgor, no icterus, cyanosis, chest dressing in place s/p mastectomy, JPs in place. HEENT: AT/NC, EOMI, PERRLA, mildly dry MM, no carotid bruits or JVD noted. Lungs: CTA bilaterally, moderate effort, mild decrease BL bases, no rales, ronchi or wheezing. Heart: Regular rate and rhythm; no gallop, rub audible. Abdomen: soft, obese, NTTP, ND, normal BS, no HSM; however, difficult examination given abdominal binder. Extremities: no cyanosis, clubbing, mild BL LE ankle edema. Neurological: patient awake, alert, oriented x 3; cognitive function intact; pupils equally reactive to light and accomodation; cranial nerves II-XII grossly normal, moving all 4 extremities, no focal deficits, strength moderately to severely globally decreased given recent intervention. Psychiatric: affect appears fatigued, no acute evidence of depressive or anxiety feelings. - Physical Exam Vital Signs Temp Pulse Resp BP Pulse Ox 99.3 F H 94 18 111/77 96 09/02/17 13:38 09/02/17 13:38 09/02/17 13:38 09/02/17 13:38 09/02/17 13:38 Oxygen Flow Rate 4 Oxygen Delivery Method Room Air Weight: 232 lb 12.93 oz Body Mass Index (BMI) 39.7 Intake and Output for Last 24 Hours 08/31/17 09/01/17 09/02/17 23:59 23:59 23:59 Intake Total 1500 / 1500 1809 / 1809 Output Total 375 / 375 2955 / 2955 Balance 1125 / 1125 -1146 / -1146 Laboratory Tests Past 24 Hrs 09/02/17 09/02/17 05:28 05:28 WBC 8.8 RBC 4.02 L Hgb 11.8 L Hct 34.6 L MCV 86.1 MCH 29.4 MCHC 34.1 RDW 14.1 RDW Differential 43.1 Plt Count 273 MPV 9.1 Sodium 137 Potassium 3.6 Chloride 104 Carbon Dioxide 25.0 Anion Gap 8 BUN 11 Creatinine 0.75 Estim Creat Clear Calc 80.94 Est GFR (MDRD) Af Amer 107 Est GFR (MDRD) Non-Af 89 BUN/Creatinine Ratio 14.7 Glucose 282 H Calcium 8.0 L Prealbumin 20.4 POC Glucose 09/02/17 09/02/17 09/01/17 11:45 06:15 22:12 POC Glucose 324 H 267 H 184 H Assessment/Plan Active and Suspected Problems (Last Reviewed 08/17/17 @ 13:48 by Chidi Thornton MD) Malignant neoplasm of upper-outer quadrant of right female breast (Acute) The patient is a 46 y/o F w/ PMHx: R sided Breast CA, Diabetes mellitus type II , HTN, Obesity, Fe Deficiency Anemia who presents to the [facility] for planned prophylactic mastectomy L breast, R breast mastectomy w/ lymph node dissection and then transition to bilateral breast reconstruction per Dr. Merrill and Dr. Thornton. (1) R Breast Invasive Lobular Carcinoma: Recent Dx R breast CA from Bx performed on 07/14/17 with pathology demonstrating invasive lobular carcinoma w/ ER +, HI +, Her-2Neu -. MRI showed a probable secondary primary in the R breast and the left breast was negative for findings with noted increased axillary lymph nodes with Bx performed which was negative. 09/01/17 prophylactic mastectomy L breast, R breast mastectomy w/ lymph node dissection performed. Pain regimen, bowel regimen, DVT Prophylaxis given recent surgery per discretion of Surgery services. (2) Diabetes mellitus type II: Noted hyperglycemia, 200-300 range, HgBA1c pending, in the interim place on low dose levemir 5 mg SC BID, hold oral home regimen, ADA diet, accu checks w/ ISS. Mag pending. (3) Hypertension: Continue home regimen including losartan, PRN hydralazine. (4) Fe Deficiency Anemia: 09/02/17 Hgb 11.8, maintain on home Fe supplementation. (5) Obesity: Weight loss and lifestyle changes encouraged. (6) DVT Prophylaxis: SCDs, lovenox per Surgery discretion. Code Visit Office Visits / Consults: [id number] IP Consult L3
[2017-09-02 18:46] LABS: Bedside Glucose 299 mg/dL (70-110)
[2017-09-02 19:00] LABS: Hemoglobin A1c 8.8 % (4.2-6.3)
--- NOTE | 2017-09-02 20:07 | PCM.PN.SRG ---
Subjective: Postop #1 Complains of incisional pain. She is a little unsteady on her feet with ambulation. - Physical Exam General: Alert, Oriented x3 HEENT: PERRLA, EOMI Neck: Supple Lungs: Clear to auscultation Cardiovascular: Regular rate, Regular Rhythm Abdomen: Soft, Non-Distended Skin: Incision - bilateral breast incisions are dry and intact. No clinical evidence of hematoma. No evidence of vascular compromise to the breast skin flaps. Neurological: Cranial nerves II-XII grossly intact Psych/Mental Status: Normal Affect, Appropriate Vital Signs Temp Pulse Resp BP Pulse Ox 99.3 F H 94 18 111/77 96 09/02/17 13:38 09/02/17 13:38 09/02/17 13:38 09/02/17 13:38 09/02/17 13:38 Oxygen Flow Rate 4 Oxygen Delivery Method Room Air Weight: 232 lb 12.93 oz Body Mass Index (BMI) 39.7 Intake and Output for Last 24 Hours 08/31/17 09/01/17 09/02/17 23:59 23:59 23:59 Intake Total 1500 / 1500 1809 / 1809 Output Total 375 / 375 2955 / 2955 Balance 1125 / 1125 -1146 / -1146 Drainage 75 ml yesterday. Laboratory Tests Past 24 Hrs 09/02/17 09/02/17 09/02/17 05:28 05:28 05:28 WBC 8.8 RBC 4.02 L Hgb 11.8 L Hct 34.6 L MCV 86.1 MCH 29.4 MCHC 34.1 RDW 14.1 RDW Differential 43.1 Plt Count 273 MPV 9.1 Sodium 137 Potassium 3.6 Chloride 104 Carbon Dioxide 25.0 Anion Gap 8 BUN 11 Creatinine 0.75 Estim Creat Clear Calc 80.94 Est GFR (MDRD) Af Amer 107 Est GFR (MDRD) Non-Af 89 BUN/Creatinine Ratio 14.7 Glucose 282 H Hemoglobin A1c 8.8 H Calcium 8.0 L Prealbumin 20.4 POC Glucose 09/02/17 09/02/17 09/02/17 18:40 11:45 06:15 POC Glucose 299 H 324 H 267 H 09/01/17 22:12 POC Glucose 184 H Assessment/Plan 1. Right breast cancer. 2. Cancer phobia left breast. 3. Planned acquired absence bilateral breasts. 4. Planned disproportion reconstructed breasts. 5. Estrogen receptor positive status. 6. s/p prophylactic mastectomy left breast by Dr. Merrill. 7. s/p injection of 5 cc of Lymphazurin blue and mastectomy and sentinel lymph node biopsy by Dr. Thornton. Patient has some incisional pain and is a little unsteady on her feet. Incisions are dry and intact. No clinical evidence of hematoma. Breast skin flaps show no evidence of vascular compromise. Continue ambulation with assistance. Anticipate discharge tomorrow after weaning to po analgesia after being more steady on her feet. Continue antibiotics until the drains are removed. Prealbumin was 20.4. Encourage nutritional supplementation with protein to help the healing process.
[2017-09-02 20:23] VITALS: BP 143/82; PULSE 96; RESP 16; TEMP 37.1; O2SAT 95
[2017-09-02] MEDS: Acetaminophen 325 MG Tablet 650 MG PO (20:40)
[2017-09-02] MEDS: Temazepam 15 MG Capsule PO (20:40)
[2017-09-02 20:46] LABS: Bedside Glucose 290 mg/dL (70-110)
[2017-09-03 03:56] VITALS: BP 158/68; PULSE 72; RESP 18; TEMP 36.6; O2SAT 97
[2017-09-03] MEDS: Lactated Ringers 1,000 ML 60 ML IV (03:59)
[2017-09-03] MEDS: Cefazolin 1 GM/50 ML BAG IV ×2 (03:59→12:28)
[2017-09-03] MEDS: Enoxaparin 40 MG/0.4 ML Syringe SC (04:01)
[2017-09-03] MEDS: Acetaminophen 325 MG Tablet 650 MG PO (04:14)
--- NOTE | 2017-09-03 06:50 | PCM.PN.HOSP ---
Patient Problems: Active and Suspected Problems (Last Reviewed 08/17/17 @ 13:48 by Chidi Thornton MD) Malignant neoplasm of upper-outer quadrant of right female breast (Acute) Subjective: Patient with no acute events overnight per self and per nursing report. She slept well she notes and pain is well controlled on oral regimen only. Patient notes intention for discharge to home today. Did discuss diabetes and elevated blood sugars with Levemir addition while inpatient with need for continued compliance with home oral medications and diet to assure improved wound healing. Magnesium obtained and normal level. Encouraged routine activity. Patient denies fevers, chills, nausea, emesis, abdominal pain or dyspnea. Objective: Physical Examination: General: awake, alert, oriented x 3 and cooperative, seated upright in bed in no apparent distress. Skin: normal color, turgor, no icterus, cyanosis, chest dressing in place s/p mastectomy, JPs in place. HEENT: AT/NC, EOMI, PERRLA, improved MMM. Lungs: CTA bilaterally, moderate effort, mild decrease BL bases, no rales, ronchi or wheezing although difficult given binder. Heart: Regular rate and rhythm; no gallop, rub audible. Abdomen: soft, obese, NTTP, difficult examination given abdominal binder. Extremities: no cyanosis, clubbing, mild BL LE ankle edema. Neurological: patient awake, alert, oriented x 3; cognitive function intact; pupils equally reactive to light and accomodation; cranial nerves II-XII grossly normal, moving all 4 extremities, no focal deficits, strength improving, moderately globally decreased given recent intervention. Psychiatric: affect appears normal, notes slept well, no acute evidence of depressive or anxiety feelings. Vitals/I&O's: Vital Signs Temp Pulse Resp BP Pulse Ox 97.8 F 72 18 158/68 H 97 09/03/17 03:56 09/03/17 03:56 09/03/17 03:56 09/03/17 03:56 09/03/17 03:56 Oxygen Flow Rate 4 Oxygen Delivery Method Room Air Weight: 232 lb 12.93 oz Body Mass Index (BMI) 39.7 Intake and Output for Last 24 Hours 09/01/17 09/02/17 09/03/17 23:59 23:59 23:59 Intake Total 1500 / 1500 1809 / 1809 1065 / 1065 Output Total 375 / 375 3000 / 3000 50 / 50 Balance 1125 / 1125 -1191 / -1191 1015 / 1015 Laboratory Results 09/02/17 05:28: Hemoglobin A1c 8.8 H 09/02/17 11:45: POC Glucose 324 H 09/02/17 18:40: POC Glucose 299 H 09/02/17 20:39: POC Glucose 290 H Current Medications Acetaminophen (Tylenol) 650 mg PO Q6H PRN PRN PRN Reason: Non-cardiac pain (mod-severe) Last Admin: 09/03/17 04:14 Dose: 650 mg Dextrose (D50w Syringe) 0 gm IV X1 PRN; Protocol PRN Reason: Hypoglycemia Diazepam (Valium) 5 mg PO 4X/DAY PRN PRN PRN Reason: SPASMS Last Admin: 09/02/17 08:21 Dose: 5 mg Docusate Sodium (Colace) 100 mg PO BID [facility] Last Admin: 09/02/17 20:41 Dose: 100 mg Enoxaparin Sodium (Lovenox) 40 mg SC DAILY@0600 [facility] Last Admin: 09/03/17 04:01 Dose: 40 mg Ferrous Sulfate (Ferrous Sulfate) 325 mg PO DAILY@1200 [facility] Last Admin: 09/02/17 11:46 Dose: 325 mg Glucagon () 1 mg IM .X1 PRN PRN Reason: Hypoglycemia Hydralazine HCl (Apresoline) 10 mg IV Q4H PRN PRN PRN Reason: SBP > 160 Hydromorphone HCl (Dilaudid) 1 mg IV Q3H PRN PRN PRN Reason: SEVERE PAIN (6-10/10) Cefazolin Sodium () 1 gm in 50 mls @ 100 mls/hr IV Q8H [facility] Last Admin: 09/03/17 03:59 Dose: 100 mls/hr Lactated Ringer's () 1,000 mls @ 60 mls/hr IV .[id number] [facility] Last Admin: 09/03/17 03:59 Dose: 60 mls/hr Insulin Aspart (Novolog Flexpen (Bkc)) 0 units SC ACHS [facility] PRN Reason: Protocol Last Admin: 09/02/17 20:39 Dose: 3 units Insulin Detemir (Levemir (Bkc)) 10 units SC BID [facility] Losartan Potassium (Cozaar) 50 mg PO DAILY [facility] Last Admin: 09/02/17 10:00 Dose: 50 mg Nutritional Formula ([place] - [place] Flavor) 1 packet PO BIDCM [facility] Last Admin: 09/02/17 17:18 Dose: 1 packet Nutritional Formula (Lactose Free) (Glucerna Shake) 120 ml PO 4X/DAY [facility] Last Admin: 09/02/17 20:40 Dose: 120 ml Ondansetron HCl (Zofran) 4 mg IV Q6H PRN PRN PRN Reason: NAUSEA Oxycodone HCl (Oxyir) 10 mg PO Q4H PRN PRN PRN Reason: SEVERE PAIN (6-10/10) Last Admin: 09/02/17 17:18 Dose: 10 mg Promethazine HCl (Phenergan) 25 mg PO Q4H PRN PRN PRN Reason: NAUSEA/VOMITING Sodium Chloride () 5 - 30 ml IV UD PRN PRN Reason: SALINE FLUSH Temazepam (Restoril) 15 mg PO QHS PRN PRN PRN Reason: insomnia Last Admin: 09/02/17 20:40 Dose: 15 mg Assessment/Plan Active and Suspected Problems (Last Reviewed 08/17/17 @ 13:48 by Chidi Thornton MD) Malignant neoplasm of upper-outer quadrant of right female breast (Acute) The patient is a 46 y/o F w/ PMHx: R sided Breast CA, Diabetes mellitus type II, HTN, Obesity, Fe Deficiency Anemia who presents to the [facility] for planned prophylactic mastectomy L breast, R breast mastectomy w/ lymph node dissection and then transition to bilateral breast reconstruction per Dr. Merrill and Dr. Thornton. (1) R Breast Invasive Lobular Carcinoma: Recent Dx R breast CA from Bx performed on 07/14/17 with pathology demonstrating invasive lobular carcinoma w/ ER +, MS +, Her-2Neu -. MRI showed a probable secondary primary in the R breast and the left breast was negative for findings with noted increased axillary lymph nodes with Bx performed which was negative. 09/01/17 prophylactic mastectomy L breast, R breast mastectomy w/ lymph node dissection performed. Pain regimen, bowel regimen, DVT Prophylaxis given recent surgery per discretion of Surgery services. Possible discharge 09/03/17, awaiting surgery re-evaluation. Medically appropriate if felt surgically appropriate for discharge. (2) Diabetes mellitus type II: Noted hyperglycemia, 200-300 range, HgBA1c 8.8%, likely stress contributing, will increase low dose levemir 5 mg SC BID-->10 u BID while inpatient, hold oral home regimen, ADA diet, accu checks w/ ISS. Mag normal. Encouraged good diet, oral regimen compliance for wound healing upon discharge to home. (3) Hypertension: Continue home regimen including losartan, PRN hydralazine. (4) Fe Deficiency Anemia: 09/02/17 Hgb 11.8, maintain on home Fe supplementation. (5) Obesity: Weight loss and lifestyle changes encouraged. (6) DVT Prophylaxis: SCDs, lovenox per Surgery discretion. Code Visit Inpatient E&M: 24660 Subs Hosp L2
--- NOTE | 2017-09-03 06:53 | PN_ITS ---
Patient Problems: Active and Suspected Problems (Last Reviewed 08/17/17 @ 13:48 by Chidi Thornton MD) Malignant neoplasm of upper-outer quadrant of right female breast (Acute) Subjective: Patient with no acute events overnight per self and per nursing report. She slept well she notes and pain is well controlled on oral regimen only. Patient notes intention for discharge to home today. Did discuss diabetes and elevated blood sugars with Levemir addition while inpatient with need for continued compliance with home oral medications and diet to assure improved wound healing. Magnesium obtained and normal level. Encouraged routine activity. Patient denies fevers, chills, nausea, emesis, abdominal pain or dyspnea. Objective: Physical Examination: General: awake, alert, oriented x 3 and cooperative, seated upright in bed in no apparent distress. Skin: normal color, turgor, no icterus, cyanosis, chest dressing in place s/p mastectomy, JPs in place. HEENT: AT/NC, EOMI, PERRLA, improved MMM. Lungs: CTA bilaterally, moderate effort, mild decrease BL bases, no rales, ronchi or wheezing although difficult given binder. Heart: Regular rate and rhythm; no gallop, rub audible. Abdomen: soft, obese, NTTP, difficult examination given abdominal binder. Extremities: no cyanosis, clubbing, mild BL LE ankle edema. Neurological: patient awake, alert, oriented x 3; cognitive function intact; pupils equally reactive to light and accomodation; cranial nerves II-XII grossly normal, moving all 4 extremities, no focal deficits, strength improving , moderately globally decreased given recent intervention. Psychiatric: affect appears normal, notes slept well, no acute evidence of depressive or anxiety feelings. Vitals/I&O's: Vital Signs Temp Pulse Resp BP Pulse Ox 97.8 F 72 18 158/68 H 97 09/03/17 03:56 09/03/17 03:56 09/03/17 03:56 09/03/17 03:56 09/03/17 03:56 Oxygen Flow Rate 4 Oxygen Delivery Method Room Air Weight: 232 lb 12.93 oz Body Mass Index (BMI) 39.7 Intake and Output for Last 24 Hours 09/01/17 09/02/17 09/03/17 23:59 23:59 23:59 Intake Total 1500 / 1500 1809 / 1809 1065 / 1065 Output Total 375 / 375 3000 / 3000 50 / 50 Balance 1125 / 1125 -1191 / -1191 1015 / 1015 Laboratory Results 09/02/17 05:28: Hemoglobin A1c 8.8 H 09/02/17 11:45: POC Glucose 324 H 09/02/17 18:40: POC Glucose 299 H 09/02/17 20:39: POC Glucose 290 H Current Medications Acetaminophen (Tylenol) 650 mg PO Q6H PRN PRN PRN Reason: Non-cardiac pain (mod-severe) Last Admin: 09/03/17 04:14 Dose: 650 mg Dextrose (D50w Syringe) 0 gm IV X1 PRN; Protocol PRN Reason: Hypoglycemia Diazepam (Valium) 5 mg PO 4X/DAY PRN PRN PRN Reason: SPASMS Last Admin: 09/02/17 08:21 Dose: 5 mg Docusate Sodium (Colace) 100 mg PO BID [facility] Last Admin: 09/02/17 20:41 Dose: 100 mg Enoxaparin Sodium (Lovenox) 40 mg SC DAILY@0600 [facility] Last Admin: 09/03/17 04:01 Dose: 40 mg Ferrous Sulfate (Ferrous Sulfate) 325 mg PO DAILY@1200 [facility] Last Admin: 09/02/17 11:46 Dose: 325 mg Glucagon () 1 mg IM .X1 PRN PRN Reason: Hypoglycemia Hydralazine HCl (Apresoline) 10 mg IV Q4H PRN PRN PRN Reason: SBP > 160 Hydromorphone HCl (Dilaudid) 1 mg IV Q3H PRN PRN PRN Reason: SEVERE PAIN (6-10/10) Cefazolin Sodium () 1 gm in 50 mls @ 100 mls/hr IV Q8H [facility] Last Admin: 09/03/17 03:59 Dose: 100 mls/hr Lactated Ringer's () 1,000 mls @ 60 mls/hr IV .[id number] [facility] Last Admin: 09/03/17 03:59 Dose: 60 mls/hr Insulin Aspart (Novolog Flexpen (Bkc)) 0 units SC ACHS [facility] PRN Reason: Protocol Last Admin: 09/02/17 20:39 Dose: 3 units Insulin Detemir (Levemir (Bkc)) 10 units SC BID [facility] Losartan Potassium (Cozaar) 50 mg PO DAILY [facility] Last Admin: 09/02/17 10:00 Dose: 50 mg Nutritional Formula (Alberto - Towns Flavor) 1 packet PO BIDCM [facility] Last Admin: 09/02/17 17:18 Dose: 1 packet Nutritional Formula (Lactose Free) (Glucerna Shake) 120 ml PO 4X/DAY [facility] Last Admin: 09/02/17 20:40 Dose: 120 ml Ondansetron HCl (Zofran) 4 mg IV Q6H PRN PRN PRN Reason: NAUSEA Oxycodone HCl (Oxyir) 10 mg PO Q4H PRN PRN PRN Reason: SEVERE PAIN (6-10/10) Last Admin: 09/02/17 17:18 Dose: 10 mg Promethazine HCl (Phenergan) 25 mg PO Q4H PRN PRN PRN Reason: NAUSEA/VOMITING Sodium Chloride () 5 - 30 ml IV UD PRN PRN Reason: SALINE FLUSH Temazepam (Restoril) 15 mg PO QHS PRN PRN PRN Reason: insomnia Last Admin: 09/02/17 20:40 Dose: 15 mg Assessment/Plan Active and Suspected Problems (Last Reviewed 08/17/17 @ 13:48 by Chidi Thornton MD) Malignant neoplasm of upper-outer quadrant of right female breast (Acute) The patient is a 46 y/o F w/ PMHx: R sided Breast CA, Diabetes mellitus type II , HTN, Obesity, Fe Deficiency Anemia who presents to the [facility] for planned prophylactic mastectomy L breast, R breast mastectomy w/ lymph node dissection and then transition to bilateral breast reconstruction per Dr. Merrill and Dr. Thornton. (1) R Breast Invasive Lobular Carcinoma: Recent Dx R breast CA from Bx performed on 07/14/17 with pathology demonstrating invasive lobular carcinoma w/ ER +, HI +, Her-2Neu -. MRI showed a probable secondary primary in the R breast and the left breast was negative for findings with noted increased axillary lymph nodes with Bx performed which was negative. 09/01/17 prophylactic mastectomy L breast, R breast mastectomy w/ lymph node dissection performed. Pain regimen, bowel regimen, DVT Prophylaxis given recent surgery per discretion of Surgery services. Possible discharge 09/03/17, awaiting surgery re- evaluation. Medically appropriate if felt surgically appropriate for discharge. (2) Diabetes mellitus type II: Noted hyperglycemia, 200-300 range, HgBA1c 8.8%, likely stress contributing, will increase low dose levemir 5 mg SC BID-->10 u BID while inpatient, hold oral home regimen, ADA diet, accu checks w/ ISS. Mag normal. Encouraged good diet, oral regimen compliance for wound healing upon discharge to home. (3) Hypertension: Continue home regimen including losartan, PRN hydralazine. (4) Fe Deficiency Anemia: 09/02/17 Hgb 11.8, maintain on home Fe supplementation. (5) Obesity: Weight loss and lifestyle changes encouraged. (6) DVT Prophylaxis: SCDs, lovenox per Surgery discretion. Code Visit Inpatient E&M: 91223 Subs Hosp L2
[2017-09-03 07:01] LABS: Bedside Glucose 208 mg/dL (70-110)
[2017-09-03 07:39] LABS: Hematocrit 37.5 % (37-47); Hemoglobin 12.5 g/dl (12.0-15.0); Mean Corp Hgb Conc 33.3 g/gl (32-36); Mean Corpuscular Hgb 28.6 pg (27.0-32.0); Mean Corpuscular Volume 85.8 fL (81-99); Mean Platelet Vol. 8.9 fl (6.2-12.0); Platelet Count 254 K/mm3 (150-450); RBC Distribution Width CV 13.9 % (11.6-14.6); RBC Distribution Width SD 43.7 fl (35.1-43.9); Red Blood Count 4.37 M/mm3 (4.2-5.4); White Blood Count 9.1 K/mm3 (4.4-11.0)
[2017-09-03 07:45] LABS: Scan Indicated on CBC? Y/N NO
[2017-09-03 07:50] LABS: Anion Gap 8 (5-15); BUN 12 mg/dL (7-18); BUN/Creat Ratio 19.1 RATIO (10-20); Calcium,Total 8.3 mg/dL (8.5-10.1); Chloride 104 mmol/L (98-107); Creatinine, Serum 0.63 mg/dL (0.55-1.02); EST Glomerular Filtration Rate 108 mL/min (>60); Est Glom Filt Rate - Afr Amer 131 mL/min (>60); Estimated Creatinine Clearance 96.35 ml/min; Glucose 208 mg/dL (74-106); Magnesium 2.1 mg/dL (1.6-2.6); Potassium 3.7 mmol/L (3.5-5.1); Sodium Level 138 mmol/L (136-145)
[2017-09-03 08:33] VITALS: BP 132/81; PULSE 79; RESP 16; TEMP 36.4; O2SAT 94
[2017-09-03] MEDS: Glucerna Shake 120 ML LIQUID PO ×3 (11:16→18:17)
[2017-09-03] MEDS: Docusate Sodium 100 MG Capsule PO (11:16)
[2017-09-03] MEDS: Losartan Potassium 50 MG Tablet PO (11:16)
[2017-09-03] MEDS: Ferrous Sulfate 325 MG Tablet PO (11:17)
[2017-09-03 11:31] LABS: Bedside Glucose 291 mg/dL (70-110)
[2017-09-03] MEDS: oxyCODONE 5 MG Tablet 10 MG PO (15:31)
[2017-09-03 15:33] VITALS: BP 141/85; PULSE 86; RESP 16; TEMP 36.9; O2SAT 97
[2017-09-03 16:50] LABS: Bedside Glucose 264 mg/dL (70-110)
--- NOTE | 2017-09-03 18:56 | PCM.PN.SRG ---
Subjective: Postop #2 Patient is resting comfortably. Pain is better controlled. She is more steady on her feet. - Physical Exam General: Alert, Oriented x3 HEENT: PERRLA, EOMI Neck: Supple Lungs: Clear to auscultation Cardiovascular: Regular rate, Regular Rhythm Skin: Incision - bilatertal breast incisions are dry and intact. No clinical evidence of hematoma. Breast skin flaps show no evidence of vascular compromise. Neurological: Cranial nerves II-XII grossly intact Psych/Mental Status: Normal Affect, Appropriate Vital Signs Temp Pulse Resp BP Pulse Ox 98.4 F 86 16 141/85 H 97 09/03/17 15:33 09/03/17 15:33 09/03/17 15:33 09/03/17 15:33 09/03/17 15:33 Oxygen Flow Rate 4 Oxygen Delivery Method Room Air Weight: 232 lb 12.93 oz Body Mass Index (BMI) 39.7 Intake and Output for Last 24 Hours 09/01/17 09/02/17 09/03/17 23:59 23:59 23:59 Intake Total 1500 / 1500 1809 / 1809 2851 / 2851 Output Total 375 / 375 3000 / 3000 2670 / 2670 Balance 1125 / 1125 -1191 / -1191 181 / 181 Drainage 275 ml yesterday. Laboratory Tests Past 24 Hrs 09/02/17 09/03/17 09/03/17 05:28 07:14 07:14 WBC 9.1 RBC 4.37 Hgb 12.5 Hct 37.5 MCV 85.8 MCH 28.6 MCHC 33.3 RDW 13.9 RDW Differential 43.7 Plt Count 254 MPV 8.9 Sodium 138 Potassium 3.7 Chloride 104 Carbon Dioxide 26.0 Anion Gap 8 BUN 12 Creatinine 0.63 Estim Creat Clear Calc 96.35 Est GFR (MDRD) Af Amer 131 Est GFR (MDRD) Non-Af 108 BUN/Creatinine Ratio 19.1 Glucose 208 H Hemoglobin A1c 8.8 H Calcium 8.3 L Magnesium 2.1 POC Glucose 09/03/17 09/03/17 09/03/17 16:07 11:14 06:48 POC Glucose 264 H 291 H 208 H 09/02/17 20:39 POC Glucose 290 H Assessment/Plan 1. Right breast cancer. 2. Cancer phobia left breast. 3. Planned acquired absence bilateral breasts. 4. Planned disproportion reconstructed breasts. 5. Estrogen receptor positive status. 6. s/p prophylactic mastectomy left breast by Dr. Merrill. 7. s/p injection of 5 cc of Lymphazurin blue and mastectomy and sentinel lymph node biopsy by Dr. Thornton. Patient has less incisional pain and is tolerating po analgesia and is a more steady on her feet. Incisions are dry and intact. No clinical evidence of hematoma. Breast skin flaps show no evidence of vascular compromise. Continue ambulation with assistance. Continue antibiotics until the drains are removed. I anticipate 10-14 days for drain removal. Prealbumin was 20.4. Encourage nutritional supplementation with protein to help the healing process. Discharge home today. Wrote script for Cefadroxil for 14 days (28 tabs). Wrote script for Percocet for pain (50 tabs). She already has Valium at home for spasm. Wrote script for Phenergan for nausea (30 tabs) and a refill and for Colace for constipation (60 tabs). Followup in the office within a week. Will try and coordinate the appointment with Dr. Thornton on the same.
--- NOTE | 2017-09-03 19:04 | PCM.DC ---
- Discharge Diagnoses Current Active Problems: Current Active and Chronic Problems (Last Reviewed 08/17/17 @ 13:48 by Chidi Thornton MD) Malignant neoplasm of upper-outer quadrant of right female breast (Acute) You will use the following diet at home:: Calorie/Carbohydrate Controlled (specify 1200, 1400, etc) Discharge Activity: May not drive while taking narcotic pain medications., May Not Shower - until the drains are removed., - - keep head elevated. no heavy lifting. May shower in (days): 14 - after the drains are removed. May resume sexual activity in: No Restrictions Weight Bearing Status: Weight bearing as tolerated Lifting Restrictions: 20 lbs. Keep extremity elevated above heart level: - - elevate head. Call your doctor if your incision/area has: Continuous Slow Oozing, Sudden Increased Bleeding, Increased Pain/ Swelling, Increased Redness, Foul Smelling Discharge, Swelling at the incision site Call your doctor if you observe: Fever of 101 or Higher, Coldness, Increased Pain, Shortness of breath, Chest pain, Calf discomfort, Uncontrolled pain Suture Line Care: - - dry dressings daily. Change Dressing in (Days):: 1 - dry dressings daily as needed. Cleanse incision/area with: - - may get incisions wet in the shower after the drains are removed. Drain: Suction - joselyn drains x2 to bulb suction. empty and record output daily. Allergies/Adverse Reactions: Allergies No Known Allergies Allergy (Verified 08/26/17 14:10) Medications to take at Discharge cholecalciferol (vitamin D3) 5,000 unit capsule 5,000 unit PO ONCE 06/30/17 ferrous sulfate 325 mg (65 mg iron) tablet 65 mg PO DAILY tab 06/30/17 losartan 100 mg tablet 50 mg PO QDAY 06/30/17 metformin 500 mg tablet 1,000 mg PO DAILY 06/30/17 sitagliptin 100 mg tablet 100 mg PO QDAY 06/30/17 diazepam 5 mg tablet See Label Instructions PO .4/day PRN #30 tab 08/31/17 Acetaminophen [Tylenol Tablet] 650 mg PO Q6H PRN PRN tablet 09/03/17 Cefadroxil [Duricef] 500 mg PO BID #28 cap 09/03/17 Docusate Sodium [Colace] 100 mg PO BID #60 cap 09/03/17 Glucagon 1 mg IM .X1 PRN syringe 09/03/17 Insulin Aspart [Novolog Flexpen] See Protocol SC ACHS flexpen 09/03/17 Insulin Detemir [Levemir FlexPen] 10 units SC BID insuln.pen 09/03/17 Oxycodone HCl/Acetaminophen [Percocet 5/325] 1 - 2 tab PO 4X/DAY PRN PRN 7 Days #50 tab 09/03/17 ProMETHAzine [Phenergan] 25 mg PO 4X/DAY PRN PRN #30 tab 09/03/17 The following prescriptions were given: Oxycodone HCl/Acetaminophen [Percocet 5/325] 1 - 2 tab PO 4X/DAY PRN PRN 7 Days #50 tab PRN Reason: Pain ProMETHAzine [Phenergan] 25 mg PO 4X/DAY PRN PRN #30 tab PRN Reason: NAUSEA/VOMITING Cefadroxil [Duricef] 500 mg PO BID #28 cap Docusate Sodium [Colace] 100 mg PO BID #60 cap Primary Care Physician: Pastor Overton [Primary Care Provider] - Please Follow Up With: Ignacio Merrill MD - will coordinate appt with Dr. Thornton on same day. When: one week. call [phone] for appt. Please Follow Up With: Chidi Thornton MD - will coordinate appt with Dr. Merrill on same day. When: one week. call [phone] for appt. Proposed Discharge Date: 09/03/17
--- NOTE | 2017-09-03 19:09 | DCINST_ITS ---
- Discharge Diagnoses Current Active Problems: Current Active and Chronic Problems (Last Reviewed 08/17/17 @ 13:48 by Chidi Thornton MD) Malignant neoplasm of upper-outer quadrant of right female breast (Acute) You will use the following diet at home:: Calorie/Carbohydrate Controlled ( specify 1200, 1400, etc) Discharge Activity: May not drive while taking narcotic pain medications., May Not Shower - until the drains are removed., - - keep head elevated. no heavy lifting. May shower in (days): 14 - after the drains are removed. May resume sexual activity in: No Restrictions Weight Bearing Status: Weight bearing as tolerated Lifting Restrictions: 20 lbs. Keep extremity elevated above heart level: - - elevate head. Call your doctor if your incision/area has: Continuous Slow Oozing, Sudden Increased Bleeding, Increased Pain/ Swelling, Increased Redness, Foul Smelling Discharge, Swelling at the incision site Call your doctor if you observe: Fever of 101 or Higher, Coldness, Increased Pain, Shortness of breath, Chest pain, Calf discomfort, Uncontrolled pain Suture Line Care: - - dry dressings daily. Change Dressing in (Days):: 1 - dry dressings daily as needed. Cleanse incision/area with: - - may get incisions wet in the shower after the drains are removed. Drain: Suction - joselyn drains x2 to bulb suction. empty and record output daily. Allergies/Adverse Reactions: Allergies No Known Allergies Allergy (Verified 08/26/17 14:10) Medications to take at Discharge cholecalciferol (vitamin D3) 5,000 unit capsule 5,000 unit PO ONCE 06/30/17 ferrous sulfate 325 mg (65 mg iron) tablet 65 mg PO DAILY tab 06/30/17 losartan 100 mg tablet 50 mg PO QDAY 06/30/17 metformin 500 mg tablet 1,000 mg PO DAILY 06/30/17 sitagliptin 100 mg tablet 100 mg PO QDAY 06/30/17 diazepam 5 mg tablet See Label Instructions PO .4/day PRN #30 tab 08/31/17 Acetaminophen [Tylenol Tablet] 650 mg PO Q6H PRN PRN tablet 09/03/17 Cefadroxil [Duricef] 500 mg PO BID #28 cap 09/03/17 Docusate Sodium [Colace] 100 mg PO BID #60 cap 09/03/17 Glucagon 1 mg IM .X1 PRN syringe 09/03/17 Insulin Aspart [Novolog Flexpen] See Protocol SC ACHS flexpen 09/03/17 Insulin Detemir [Levemir FlexPen] 10 units SC BID insuln.pen 09/03/17 Oxycodone HCl/Acetaminophen [Percocet 5/325] 1 - 2 tab PO 4X/DAY PRN PRN 7 Days #50 tab 09/03/17 ProMETHAzine [Phenergan] 25 mg PO 4X/DAY PRN PRN #30 tab 09/03/17 The following prescriptions were given: Oxycodone HCl/Acetaminophen [Percocet 5/325] 1 - 2 tab PO 4X/DAY PRN PRN 7 Days #50 tab PRN Reason: Pain ProMETHAzine [Phenergan] 25 mg PO 4X/DAY PRN PRN #30 tab PRN Reason: NAUSEA/VOMITING Cefadroxil [Duricef] 500 mg PO BID #28 cap Docusate Sodium [Colace] 100 mg PO BID #60 cap Primary Care Physician: Pastor Overton [Primary Care Provider] - Please Follow Up With: Ignacio Merrill MD - will coordinate appt with Dr. Thornton on same day. When: one week. call [phone] for appt. Please Follow Up With: Chidi Thornton MD - will coordinate appt with Dr. Merrill on same day. When: one week. call [phone] for appt. Proposed Discharge Date: 09/03/17
== END 2017-09-03 19:30 | disposition home or self-care (01) ==
LOC: SDC 09-03 16:39
PROVIDERS: Anesthesiology; Family Medicine; Surgery; Admitting Provider Surgery; Visit Provider Surgery
PROC: (CPT 19303; principal; 2017-09-01 11:45)
PROC: (CPT 19303; 2017-09-01 11:45)
DX: C50.411 Malignant neoplasm of upper-outer quadrant of right female breast (principal); Z17.0 Estrogen receptor positive status [ER+]; Z40.01 Encounter for prophylactic removal of breast; N65.1 Disproportion of reconstructed breast; F45.29 Other hypochondriacal disorders; E11.9 Type 2 diabetes mellitus without complications; I10 Essential (primary) hypertension; Z79.899 Other long term (current) drug therapy; Z79.84 Long term (current) use of oral hypoglycemic drugs; N60.92 Unspecified benign mammary dysplasia of left breast; E66.9 Obesity, unspecified; Z68.39 Body mass index [BMI] 39.0-39.9, adult; Z71.3 Dietary counseling and surveillance; D50.9 Iron deficiency anemia, unspecified; Z87.891 Personal history of nicotine dependence; F41.9 Anxiety disorder, unspecified
CPT/HCPCS: 00400; 19303 ×2; 38525; 38792; 36415; 80048; 81025; 82962; 83036; 83735; 84134; 85027; 88305; 88307; 88309; 88331; 88332; 88341; 88342; 96365; 96366; 96372; 97802; 99218; J7120; G0378; G0379; J2405; Q9968

== ENCOUNTER → 2017-10-29 16:05 | Outpatient (CLI) | payer OTHER, SELFPAY ==
[2017-10-29 16:43] LABS: Absolute Lymphocyte Count 2.59 X10^3/ul (0.83-4.51); Absolute Neutrophil Count 5.5 X10^3/uL (2.0-7.7); Basophil# 0.01 X10^3/uL; Basophil% 0.1 % (0-1); Eosinophil# 0.14 X10^3/uL; Eosinophils% 1.6 % (0-5); Hematocrit 41.1 % (37-47); Hemoglobin 13.6 g/dl (12.0-15.0); Lymphocyte # 2.59 X10^3/ul (4.0); Lymphocyte % 29.9 % (19-41); Mean Corp Hgb Conc 33.1 g/gl (32-36); Mean Corpuscular Hgb 28.3 pg (27.0-32.0); Mean Corpuscular Volume 85.4 fL (81-99); Mean Platelet Vol. 9.1 fl (6.2-12.0); Monocyte# 0.46 X10^3/uL; Monocyte% 5.3 % (0-10); Neutrophil # 5.45 X10^3/uL (2.7-7.7); Platelet Count 284 K/mm3 (150-450); RBC Distribution Width CV 13.2 % (11.6-14.6); RBC Distribution Width SD 41.4 fl (35.1-43.9); Red Blood Count 4.81 M/mm3 (4.2-5.4); White Blood Count 8.7 K/mm3 (4.4-11.0)
[2017-10-29 16:59] LABS: POSITIVE COUNT NO; POSITIVE DIFFERENTIAL NO; POSITIVE MORPHOLOGY NO
[2017-10-29 17:15] LABS: ALB/GLOB Ratio 0.9 RATIO (0.9-2.4); AST(SGOT) 19 U/L (15-37); Alanine Aminotransfer ALT/SGPT 30 U/L (13-56); Albumin, Serum 3.8 g/dL (3.2-5.0); Alkaline Phosphatase 83 U/L (45-117); Anion Gap 8 (5-15); BUN 13 mg/dL (7-18); BUN/Creat Ratio 17.7 RATIO (10-20); Chloride 106 mmol/L (98-107); Cholesterol 175 mg/dL (200); Creatinine, Serum 0.74 mg/dL (0.55-1.02); EST Glomerular Filtration Rate 90 mL/min (>60); Est Glom Filt Rate - Afr Amer 109 mL/min (>60); Globulin 4.1 g/dL (2.2-4.2); Glucose 107 mg/dL (74-106); High Density Lipoprotein 26 mg/dL; Iron 62 ug/dL (50-170); Potassium 3.5 mmol/L (3.5-5.1); Protein, Total 7.9 g/dL (6.4-8.2); Sodium Level 140 mmol/L (136-145); Triglycerides 209 mg/dL; Very Low Density Lipoprotein 42 mg/dL (5-40)
[2017-10-29 18:10] LABS: Color, Urine Straw (Yellow); Glucose, Dipstick Normal (Normal); Ketone-Dipstick 5 mg/dl (Negative); Leukocyte Esterase-Dipstick 25 /ul (Negative); Nitrite-Dipstick Negative (Negative); Occult Blood-Urine Negative /ul (Negative); Protein-Dipstick Negative (Negative); Specific Gravity, Urine 1.015 (1.002-1.030); Urine Bilirubin Dipstick Negative (Negative); Urine Clarity Clear (Clear); Urine Urobilinogen Normal (Normal)
[2017-10-29 18:36] LABS: Microalbumin,Random Urine < 5.0 mg/L (NO RANGE EST.)
[2017-10-30 08:50] LABS: Vitamin B12 602 pg/mL (211-911); Vitamin D,25 Hydroxy 39.7 ng/mL (29.95-100.01)
== END ==
DX: Z00.00 Encounter for general adult medical examination without abnormal findings (principal); E11.9 Type 2 diabetes mellitus without complications; I10 Essential (primary) hypertension; E55.9 Vitamin D deficiency, unspecified; E53.8 Deficiency of other specified B group vitamins; D50.9 Iron deficiency anemia, unspecified
CPT/HCPCS: 36415; 80053; 80061; 81002; 82043; 82306; 82607; 83036; 83540; 85025

== ENCOUNTER 2017-12-16 12:22 | Observation (INO) | payer OTHER, SELFPAY ==
[2017-12-15] VITALS (10 sets, daily range): BP systolic 104–161; BP diastolic 66–87; PULSE 73–97; RESP 16–18; TEMP 36.6–37.4; O2SAT 93–100; BMI 33.7
--- NOTE | 2017-12-15 | BRBX_PTH ---
PATIENT: TOI DIXON LOC: [facility] U#:[id number] AGE/SX: 47/F ROOM: HI314 RE12/16/[address]: Dr. Ignacio Merrill MD : 1970 BED: 1 DIS: 12/17/2017 SPEC #: [id number] RECD: 12/15/17 15:30 STATUS: CIELO RESkip #: [id number] GILLES: 12/15/17 00:[address]: Ignacio Merrill DEPT: SURGICAL PATHOLOGY RECD BY: Heri Lei ENTERED: 12/16/17 07:46 SP TYPE: BREAST BX OTHR DR: Pastor Overton Tissues: A - Left breast, NOS B - Right breast, NOS Procedures: Surgery Specimen Level IV HEADER OPERATION: First stage delayed breast reconstruction PRE-OP DIAGNOSIS: Acquired absence bilateral breasts; disproportion reconstructed breasts; right breast cancer; cancer phobia left breast TISSUE SUBMITTED: A ? Left breast tissue, B ? Right breast tissue FIXATION TIME: 24 hours MICROSCOPIC DIAGNOSIS A. Left breast tissue: Pieces of skin with underlying adipose tissue with focal fat necrosis and foreign body giant cell reaction. See comment. B. Right breast tissue: Pieces of skin with underlying adipose tissue with focal chronic inflammation and foreign body giant cell reaction. See comment. SJ:rg 12/17/17 COMMENT A & B. Breast tissue is not identified in the submitted specimen. Please make reference to previous specimen ([id number]) B ? right breast, mastectomy with diagnosis of invasive lobular carcinoma and C ? left breast, mastectomy with diagnosis of fibrocystic changes and intraductal hyperplasia without atypia and negative for carcinoma. MICROSCOPIC DESCRIPTION Slides are reviewed. GROSS DESCRIPTION A - Received in fixative is one container labeled with the patient's name and designated left breast tissue. The specimen consists of two pieces of skin with underlying tissue measuring 5.5 x 2 x 1.2 cm and 6 x 1.5 x 2 cm. The skin surface does not show any lesion. Sections also do not reveal any mass lesion. Door Attendant sections are submitted in three cassettes. B - Received in fixative is one container labeled with the patient's name and designated right breast tissue. The specimen consists of two pieces of skin with underlying tissue measuring 5 x 1.6 x 2 cm and 6 x 1.2 x 1 cm. The skin surface does not show any lesion. Sections also do not reveal any mass lesion. Door Attendant sections are submitted in three cassettes. / SJ:rg 12/16/17 TC:5 CPT: 75988 x2
[2017-12-15 10:37] LABS: Internal QC Validated? YES +Cl - CLEAR BKGD; Pregnancy, Urine Negative Negative
[2017-12-15 11:01] LABS: Bedside Glucose 159 mg/dL (70-110)
--- NOTE | 2017-12-15 11:12 | HP.PCM_ITS ---
History and Physical Date of Admission: 12/15/17 History of Present Illness: 47 year old woman presents for the next stage in her breast reconstruction. She had right breast cancer diagnosed in 07/23. She underwent right breast mastectomy with sentinel lymph node biopsy and prophylactic mastectomy left breast at the end of August,. Placement of saline tissue expanders was initially planned. However her HgbA1c was elevated above 8. Therefore the reconstruction was postponed until that has improved. Recently her hgbA1c was decreased to 7. She presents today for further breast reconstruction with placement of saline tissue expanders. She also has excess mastectomy skin scar contour deformity inferiorly that will be revised as well. Past Medical History: Right breast cancer. Diabetes Hypertension Past Surgical History: appendectomy Right breast mastectomy with sentinel lymph node biopsy - 09/01/17 Prophylactic mastectomy left breast - 09/01/17 MEDICATIONS Vitamin D3. Iron Sulfate. Losartan. Metformin. Sitagliptin. ALLERGIES None. Family History Summary: Colon cancer - Father and Mother and Sister. Hypertension - Mother and Sister. Lung cancer - Mother. negative for skin cancer. Social History: Alcohol Use - yes Drug Use - no Patient has never smoked. 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 Eyes - Denies eye pain. ENT - Denies nasal congestion and sore throat. CV - Denies chest pain or discomfort, fatigue, lightheadedness and shortness of breath with exertion. Resp - Denies cough and shortness of breath. GI - Denies nausea, vomiting, diarrhea and constipation. - Denies blood in urine and urinary frequency. MS - Denies joint pain, back pain, stiffness, muscle weakness and arthritis. Derm - Denies skin cancer. Neuro - Denies poor balance, headaches and weakness. Psych - Denies anxiety and depression. Endo - Denies excessive urination and excessive thirst. Has diabetes mellitus. Has recent diagnosis of right breast cancer. Heme - Denies bleeding and abnormal bruising. Vital Signs: Patient Profile: 46 Years Old Female Height: 66.50 inches Weight: 233 pounds BMI: 37.04 BSA: 2.15 Physical Exam General - well developed, well nourished, in no acute distress. Head - normocephalic and atraumatic. No suspicious lesions noted Eyes - PERRL/EOM intact, conjunctiva and sclera clear. Ears - No suspicious lesions noted Nose - No suspicious lesions noted Mouth - No suspicious lesions noted Neck - no masses, thyromegaly, or abnormal cervical nodes. Chest Wall/Breasts - Mastectomy incisions are well healed. No seroma formation noted. Lungs - clear bilaterally to auscultation. Heart - regular rate and rhythm. Abdomen - Soft and non distended. Some redundant skin and subcutaneous tissue between the umbilicus and the pubic area. No hernias noted. Pulses - radial pulses are palpable. Extremities - no clubbing, cyanosis, edema. No suspicious lesions noted Neurologic - cranial nerves II-XII grossly intact. Skin - no rashes. Cervical Nodes - no significant adenopathy. Axillary Nodes - no significant adenopathy. Psych - alert and cooperative; normal mood and affect; normal attention span and concentration. Assessment and Plan 1. Right breast cancer. 2. 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 4. Disproportion reconstructed breasts. 5. Deformity bilateral reconstructed breasts with excess mastectomy skin scar contour deformity. Patient had mastectomy in 08/23. No reconstruction was done at that time since her HgbA1c was greater than 8. It is now 7 and she presents today to continue her breast reconstruction with placement of saline tissue expanders. Her mastectomy incisions are well healed. There is excess mastectomy skin scar contour deformity bilateral breast reconstruction inferiorly. Will also revise the reconstructed breasts with excision excess mastectomy skin scar contour deformity. Surgery will be done under general anesthesia with a surgical observation overnight stay in the hospital. The patient was informed of the risks and complications of the procedure including alternatives to surgery. These were discussed with the patient personally. The patient voices understanding and wishes to proceed. Some of the risks and complications were included in a form from the [employer].
[2017-12-15] MEDS: Cefazolin 2 GM in 0.9% Normal Saline 100 ML IV (12:43)
[2017-12-15] MEDS: Methylene Blue 1% 100 MG/10 ML VIAL (13:30)
--- NOTE | 2017-12-15 15:28 | OP.PN_ITS ---
Immediate Post-Op Note Date of Procedure: 12/15/17 Primary Surgeon/Physician: Ignacio Merrill manager aerospace: Zora Awan. Pre-Operative Diagnosis: 1. Right breast cancer. 2. 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 4. Disproportion reconstructed breasts. 5. Deformity bilateral reconstructed breasts with excess mastectomy skin scar contour deformity. Post-Operative Diagnosis: Same. Surgery/Procedure Performed:: 1. 1st stage delayed bilateral breast reconstruction with placement submuscular saline tissue metallurgical lab technician (550 ml). 2. Revision bilateral breast reconstruction with excision excess mastectomy skin scar contour deformity. Description of Surgical Findings:: 47 year old woman presents for the next stage in her breast reconstruction. She had right breast cancer diagnosed in 07/23. She underwent right breast mastectomy with sentinel lymph node biopsy and prophylactic mastectomy left breast at the end of August,. Placement of saline tissue expanders was initially planned. However her HgbA1c was elevated above 8. Therefore the reconstruction was postponed until that has improved. Recently her hgbA1c was decreased to 7. She presents today for further breast reconstruction with placement of saline tissue expanders. She also has excess mastectomy skin scar contour deformity inferiorly that will be revised as well. Today the patient underwent 1st stage delayed bilateral breast reconstruction with placement submuscular saline tissue metallurgical lab technician (550 ml) and revision bilateral breast reconstruction with excision excess mastectomy skin scar contour deformity. IV Fluids - 1500 ml. Urine Output - 200 ml. I used [place] CPX4 with Suture Tabs, Medium Height Breast Tissue Water Quality Assistant, Textured, Integral Injection Dome, 550 ml, Right Breast. Reference Number - [id number]. Lot Number - [id number]. Serial Number - [id number]. I used [place] CPX4 with Suture Tabs, Medium Height Breast Tissue Water Quality Assistant, Textured, Integral Injection Dome, 550 ml, Left Breast. Reference Number - [id number]. Lot Number - [id number]. Serial Number - [id number]. I used Jayde absorbable hemostat, (I used 2 vials, one in each breast). Reference Number - [id number]. Lot Number - [id number]. Expiration - September 02, 2022, (Right Breast). Reference Number - [id number]. Lot Number - [id number]. Expiration - July 02, 2022, (Left Breast). Estimated Blood Loss: 100 ml. Specimen's removed: 1. Excess mastectomy skin scar contour deformity left breast to Pathology. 2. Excess mastectomy skin scar contour deformity right breast to Pathology. Drains: Dick x 2 (one in each breast). Type of Anesthesia:: General - Admit VTE Documentation VTE Present on Admission: No VTE Mechan Device Prophylaxis: SCD's VTE Pharm Prophylaxis ordered?: Yes
[2017-12-15 16:21] LABS: Bedside Glucose 133 mg/dL (70-110)
[2017-12-15] MEDS: diazePAM 5 MG Tablet PO (17:41)
[2017-12-15] MEDS: Lactated Ringers 1,000 ML 60 ML IV (17:46)
[2017-12-15 17:56] LABS: Bedside Glucose 152 mg/dL (70-110)
--- NOTE | 2017-12-15 18:20 | PCM.OPRPT ---
Report of Operation Date of Procedure: 12/15/17 Pre-Operative Diagnosis: 1. Right breast cancer. 2. 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 4. Disproportion reconstructed breasts. 5. Deformity bilateral reconstructed breasts with excess mastectomy skin scar contour deformity. Post-Operative Diagnosis: Same. Surgery/Procedure Performed:: 1. 1st stage delayed bilateral breast reconstruction with placement submuscular saline tissue certified physical therapist assistant (550 ml). 2. Revision bilateral breast reconstruction with excision excess mastectomy skin scar contour deformity. Description of Surgical Findings:: 47 year old woman presents for the next stage in her breast reconstruction. She had right breast cancer diagnosed in 07/23. She underwent right breast mastectomy with sentinel lymph node biopsy and prophylactic mastectomy left breast at the end of August,. Placement of saline tissue expanders was initially planned. However her HgbA1c was elevated above 8. Therefore the reconstruction was postponed until that has improved. Recently her hgbA1c was decreased to 7. She presents today for further breast reconstruction with placement of saline tissue expanders. She also has excess mastectomy skin scar contour deformity inferiorly that will be revised as well. The patient was informed of the risks and complications of the procedure including alternatives to surgery. These were discussed with the patient personally. The patient voices understanding and wishes to proceed. Some of the risks and complications were included in a form from the [employer]. IV Fluids - 1500 ml. Urine Output - 200 ml. I used [place] CPX4 with Suture Tabs, Medium Height Breast Tissue Sheet Combining Operator, Textured, Integral Injection Dome, 550 ml, Right Breast. Reference Number - [id number]. Lot Number - [id number]. Serial Number - [id number]. I used [place] CPX4 with Suture Tabs, Medium Height Breast Tissue Sheet Combining Operator, Textured, Integral Injection Dome, 550 ml, Left Breast. Reference Number - [id number]. Lot Number - [id number]. Serial Number - [id number]. I used Jayde absorbable hemostat, (I used 2 vials, one in each breast). Reference Number - [id number]. Lot Number - [id number]. Expiration - September 02, 2022, (Right Breast). Reference Number - [id number]. Lot Number - [id number]. Expiration - July 02, 2022, (Left Breast). refrigerating technician: Zora Awan. Type of Anesthesia:: General Specimen's removed: 1. Excess mastectomy skin scar contour deformity left breast to Pathology. 2. Excess mastectomy skin scar contour deformity right breast to Pathology. Drains: Dick x 2 (one in each breast). Estimated Blood Loss (mL): 100 ml. Fluids Replaced: 1700 ml (IV Fluids 1500 ml, Urine Output 200 ml). Description of Procedure: Patient was seen in the preop area and was placed in the sitting position. Preop markings were made. I marked the sternal midline down toward the umbilicus. The midclavicular line was marked to the nipple and then from the nipple to the inframammary fold. The inframammary folds were marked bilaterally. She was placed in supine position and taken to OR and placed under general anesthesia. Her breasts were prepped and draped in the usual fashion. SCD's were placed for DVT prophylaxis. Perioperative antibiotics were given intravenously. A soliman catheter was then placed. I would make my incision horizontally to excise the excess mastectomy skin contour deformity. This would intersect the previous vertical incision scar and allow better shape and contouring for the skin envelope as the tissue expansion takes place. This would complete the mastopexy type incision for breast reconstruction due to her previous degree of ptosis. These preop markings were tattooed with methylene blue and a 25 gauge needle. The horizontal markings were infiltrated with xylocaine and epinephrine. This excess mastectomy skin scar contour deformity tissue was then excised and sent to Pathology for analysis to rule out carcinoma. I then created a submuscular pocket bilaterally superiorly to the clavicle, medially to the sternum, laterally to the anterior axillary line, and inferiorly to the inframammary fold. Some of the inferior and medial fibers of the pectoralis major muscle was incised to aid in the creation of the submuscular pocket. At the time of the dissection, it was noted there was good healing from the previous mastectomies. After creating the submuscular breast pockets, it was determined that a 550 ml certified physical therapist assistant would fit the pocket. The air was removed from the expanders. I then injected 30 ml to make sure there were no leaks in the expanders. The saline was then removed. I used [place] CPX4 with suture tabs, medium height breast tissue certified physical therapist assistant, textured, integral injection dome for the expanders. The breast pockets were irrigated with saline. Hemostasis obtained with electrocautery. I placed size 15 Dick drains into the breast wounds through separate stab incisions laterally and secured to the skin with 3-0 Nylon suture. I then sprayed Jayde absorbable hemostat into the breast wound pockets to minimize seroma formation postoperatively. The expanders were then placed into the submuscular position bilaterally. The expanders were secured to the chest wall with 3-0 Vicryl interrupted sutures through the suture tabs. The submuscular pockets were snug and I felt there was no need at this time for the use of acellular dermal matrix graft since I didn't have to dissect into the previous mastectomy wound. The dissection was submuscular. The horizontal breast incisions were then approximated in multiple layers with 3-0 Monocryl interrupted sutures and 3-0 Vicryl interrupted sutures for Moo's fascia which covered the expanders. I then closed the deep dermis and subcutaneous tissue with 3-0 Monocryl interrupted sutures. The skin was approximated with 3-0 V-lock unidirectional barbed running subcuticular suture followed by Histoacryl skin tissue adhesive. No vascular compromise was noted on both breast area skin flaps. Kerlix gauze was used for dressing followed by a compression QUIANA wrap. Patient tolerated the procedure well and was sent to PACU in satisfactory condition. She will be sent upstairs for postop care. She will be discharged when tolerated po analgesia and when she is more steady on her feet with ambulation. I anticipate 2-3 days. She will have her drains in for up to 14 days. She will be maintained on antibiotics until the drains are removed. She will keep her head elevated during the initial postop period and be on a lifting restriction. Grafts/Implants Used: [place] CPX4 Breast Tissue Expanders x2. - Complications None. - Admit VTE Documentation VTE Present on Admission: No VTE Mechan Device Prophylaxis: SCD's VTE Pharm Prophylaxis ordered?: Yes Code Visit Surgery Charges CPT - 93957 ICD-10 - C50.911, F40.298, Z90.13, N65.0, N65.1 90688-01 C50.911, F40.298, Z90.13, N65.0, N65.1 42552 C50.911, F40.298, Z90.13, N65.0, N65.1 74313-88 C50.911, F40.298, Z90.13, N65.0, N65.1
[2017-12-15] MEDS: oxyCODONE 5 MG Tablet 10 MG PO (20:15)
[2017-12-15] MEDS: Docusate Sodium 100 MG Capsule PO (22:41)
[2017-12-15] MEDS: Cefazolin 1 GM/50 ML BAG IV (22:41)
[2017-12-16] MEDS: oxyCODONE 5 MG Tablet 10 MG PO ×5 (00:19→19:31)
[2017-12-16] MEDS: Acetaminophen 325 MG Tablet 650 MG PO (00:20)
[2017-12-16 02:00] VITALS: BP 119/72; PULSE 68; RESP 16; TEMP 37.1; O2SAT 96
[2017-12-16] MEDS: HYDROmorphone 1 MG/ML Syringe IV ×4 (04:59→22:11)
[2017-12-16] MEDS: Cefazolin 1 GM/50 ML BAG IV ×3 (06:01→21:39)
[2017-12-16] MEDS: Enoxaparin 40 MG/0.4 ML Syringe SC (06:04)
[2017-12-16 06:18] LABS: Hematocrit 38.1 % (37-47); Hemoglobin 12.9 g/dl (12.0-15.0); Mean Corp Hgb Conc 33.9 g/gl (32-36); Mean Corpuscular Hgb 28.5 pg (27.0-32.0); Mean Corpuscular Volume 84.3 fL (81-99); Mean Platelet Vol. 9.5 fl (6.2-12.0); Platelet Count 280 K/mm3 (150-450); RBC Distribution Width CV 13.9 % (11.6-14.6); RBC Distribution Width SD 42.3 fl (35.1-43.9); Red Blood Count 4.52 M/mm3 (4.2-5.4); White Blood Count 11.8 K/mm3 (4.4-11.0)
[2017-12-16 06:38] LABS: Scan Indicated on CBC? Y/N NO
[2017-12-16 06:39] LABS: Anion Gap 7 (5-15); BUN 11 mg/dL (7-18); Calcium,Total 8.2 mg/dL (8.5-10.1); Chloride 106 mmol/L (98-107); Creatinine, Serum 0.69 mg/dL (0.55-1.02); EST Glomerular Filtration Rate 97 mL/min (>60); Est Glom Filt Rate - Afr Amer 118 mL/min (>60); Glucose 154 mg/dL (74-106); Potassium 3.9 mmol/L (3.5-5.1); Prealbumin 21.2 mg/dL (20.0-40.0); Sodium Level 139 mmol/L (136-145)
[2017-12-16 06:51] LABS: Bedside Glucose 170 mg/dL (70-110)
[2017-12-16 08:00] VITALS: BP 130/73; PULSE 90; RESP 16; TEMP 37.1; O2SAT 97
[2017-12-16] MEDS: Docusate Sodium 100 MG Capsule PO ×2 (08:53→21:39)
[2017-12-16] MEDS: Losartan Potassium 50 MG Tablet PO (08:54)
[2017-12-16] MEDS: LINAGLIPTIN 5 MG TABLET PO (08:54)
[2017-12-16] MEDS: metFORMIN HCl 1,000 MG Tablet 1000 MG PO (08:55)
[2017-12-16] MEDS: Lactated Ringers 1,000 ML 60 ML IV (08:58)
[2017-12-16] MEDS: Ferrous Sulfate 325 MG Tablet PO (08:58)
[2017-12-16] MEDS: Tamoxifen 10 MG Tablet 20 MG PO (08:59)
--- NOTE | 2017-12-16 09:10 | NURSING ---
HOB at 45 DEGREES, WILL MONITOR THAT THIS IS MAINTAINED.
--- NOTE | 2017-12-16 12:21 | OP.PCM_ITS ---
Report of Operation Date of Procedure: 12/15/17 Pre-Operative Diagnosis: 1. Right breast cancer. 2. 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 4. Disproportion reconstructed breasts. 5. Deformity bilateral reconstructed breasts with excess mastectomy skin scar contour deformity. Post-Operative Diagnosis: Same. Surgery/Procedure Performed:: 1. 1st stage delayed bilateral breast reconstruction with placement submuscular saline tissue quenching car operator (550 ml). 2. Revision bilateral breast reconstruction with excision excess mastectomy skin scar contour deformity. Description of Surgical Findings:: 47 year old woman presents for the next stage in her breast reconstruction. She had right breast cancer diagnosed in 07/23. She underwent right breast mastectomy with sentinel lymph node biopsy and prophylactic mastectomy left breast at the end of August,. Placement of saline tissue expanders was initially planned. However her HgbA1c was elevated above 8. Therefore the reconstruction was postponed until that has improved. Recently her hgbA1c was decreased to 7. She presents today for further breast reconstruction with placement of saline tissue expanders. She also has excess mastectomy skin scar contour deformity inferiorly that will be revised as well. The patient was informed of the risks and complications of the procedure including alternatives to surgery. These were discussed with the patient personally. The patient voices understanding and wishes to proceed. Some of the risks and complications were included in a form from the [employer]. IV Fluids - 1500 ml. Urine Output - 200 ml. I used [place] CPX4 with Suture Tabs, Medium Height Breast Tissue Almond Blancher Operator, Textured, Integral Injection Dome, 550 ml, Right Breast. Reference Number - [id number]. Lot Number - [id number]. Serial Number - [id number]. I used [place] CPX4 with Suture Tabs, Medium Height Breast Tissue Almond Blancher Operator, Textured, Integral Injection Dome, 550 ml, Left Breast. Reference Number - [id number]. Lot Number - [id number]. Serial Number - [id number]. I used Jayde absorbable hemostat, (I used 2 vials, one in each breast). Reference Number - [id number]. Lot Number - [id number]. Expiration - September 02, 2022, (Right Breast). Reference Number - [id number]. Lot Number - [id number]. Expiration - July 02, 2022, (Left Breast). precinct captain: Zora Awan. Type of Anesthesia:: General Specimen's removed: 1. Excess mastectomy skin scar contour deformity left breast to Pathology. 2. Excess mastectomy skin scar contour deformity right breast to Pathology. Drains: Dick x 2 (one in each breast). Estimated Blood Loss (mL): 100 ml. Fluids Replaced: 1700 ml (IV Fluids 1500 ml, Urine Output 200 ml). Description of Procedure: Patient was seen in the preop area and was placed in the sitting position. Preop markings were made. I marked the sternal midline down toward the umbilicus. The midclavicular line was marked to the nipple and then from the nipple to the inframammary fold. The inframammary folds were marked bilaterally. She was placed in supine position and taken to OR and placed under general anesthesia. Her breasts were prepped and draped in the usual fashion. SCD's were placed for DVT prophylaxis. Perioperative antibiotics were given intravenously. A soliman catheter was then placed. I would make my incision horizontally to excise the excess mastectomy skin contour deformity. This would intersect the previous vertical incision scar and allow better shape and contouring for the skin envelope as the tissue expansion takes place. This would complete the mastopexy type incision for breast reconstruction due to her previous degree of ptosis. These preop markings were tattooed with methylene blue and a 25 gauge needle. The horizontal markings were infiltrated with xylocaine and epinephrine. This excess mastectomy skin scar contour deformity tissue was then excised and sent to Pathology for analysis to rule out carcinoma. I then created a submuscular pocket bilaterally superiorly to the clavicle, medially to the sternum, laterally to the anterior axillary line, and inferiorly to the inframammary fold. Some of the inferior and medial fibers of the pectoralis major muscle was incised to aid in the creation of the submuscular pocket. At the time of the dissection, it was noted there was good healing from the previous mastectomies. After creating the submuscular breast pockets, it was determined that a 550 ml quenching car operator would fit the pocket. The air was removed from the expanders. I then injected 30 ml to make sure there were no leaks in the expanders. The saline was then removed. I used [place] CPX4 with suture tabs, medium height breast tissue quenching car operator, textured, integral injection dome for the expanders. The breast pockets were irrigated with saline. Hemostasis obtained with electrocautery. I placed size 15 Dick drains into the breast wounds through separate stab incisions laterally and secured to the skin with 3-0 Nylon suture. I then sprayed Jayde absorbable hemostat into the breast wound pockets to minimize seroma formation postoperatively. The expanders were then placed into the submuscular position bilaterally. The expanders were secured to the chest wall with 3-0 Vicryl interrupted sutures through the suture tabs. The submuscular pockets were snug and I felt there was no need at this time for the use of acellular dermal matrix graft since I didn't have to dissect into the previous mastectomy wound. The dissection was submuscular. The horizontal breast incisions were then approximated in multiple layers with 3-0 Monocryl interrupted sutures and 3-0 Vicryl interrupted sutures for Moo's fascia which covered the expanders. I then closed the deep dermis and subcutaneous tissue with 3-0 Monocryl interrupted sutures. The skin was approximated with 3-0 V-lock unidirectional barbed running subcuticular suture followed by Histoacryl skin tissue adhesive. No vascular compromise was noted on both breast area skin flaps. Kerlix gauze was used for dressing followed by a compression QUIANA wrap. Patient tolerated the procedure well and was sent to PACU in satisfactory condition. She will be sent upstairs for postop care. She will be discharged when tolerated po analgesia and when she is more steady on her feet with ambulation. I anticipate 2-3 days. She will have her drains in for up to 14 days. She will be maintained on antibiotics until the drains are removed. She will keep her head elevated during the initial postop period and be on a lifting restriction. Grafts/Implants Used: [place] CPX4 Breast Tissue Expanders x2. - Complications None. - Admit VTE Documentation VTE Present on Admission: No VTE Mechan Device Prophylaxis: SCD's VTE Pharm Prophylaxis ordered?: Yes Code Visit Surgery Charges CPT - 64276 ICD-10 - C50.911, F40.298, Z90.13, N65.0, N65.1 85003-09 C50.911, F40.298, Z90.13, N65.0, N65.1 71858 C50.911, F40.298, Z90.13, N65.0, N65.1 19571-31 C50.911, F40.298, Z90.13, N65.0, N65.1
--- NOTE | 2017-12-16 12:22 | PCM.PN.SRG ---
Subjective: Postop #1 Patient having incisional discomfort. Having some itching. She is a little unsteady on her feet. - Physical Exam General: Alert, Oriented x3 HEENT: PERRLA, EOMI Neck: Supple Lungs: Clear to auscultation Cardiovascular: Regular rate, Regular Rhythm Abdomen: Soft, Non-Distended Skin: Incision - dressing is dry and intact. Will remove dressing prior to discharge tomorrow. Neurological: Cranial nerves II-XII grossly intact Psych/Mental Status: Normal Affect, Appropriate Vital Signs Temp Pulse Resp BP Pulse Ox 98.7 F 90 16 130/73 H 97 12/16/17 08:00 12/16/17 08:00 12/16/17 08:00 12/16/17 08:00 12/16/17 08:00 Oxygen Flow Rate (L/min) 10 Oxygen Delivery Method Room Air Weight: 196 lb 13.965 oz Body Mass Index (BMI) 33.7 Finger Stick Blood Glucose 133 Intake and Output for Last 24 Hours 12/14/17 12/15/17 12/16/17 23:59 23:59 23:59 Intake Total 2100 / 2100 3040 / 3040 Output Total 355 / 355 2537 / 2537 Balance 1745 / 1745 503 / 503 Drainage 35 ml yesterday, 187 ml today. Laboratory Tests Past 24 Hrs 12/16/17 12/16/17 05:52 05:52 WBC 11.8 H RBC 4.52 Hgb 12.9 Hct 38.1 MCV 84.3 MCH 28.5 MCHC 33.9 RDW 13.9 RDW Differential 42.3 Plt Count 280 MPV 9.5 Sodium 139 Potassium 3.9 Chloride 106 Carbon Dioxide 26.0 Anion Gap 7 BUN 11 Creatinine 0.69 Est GFR (MDRD) Af Amer 118 Est GFR (MDRD) Non-Af 97 BUN/Creatinine Ratio 16.0 Glucose 154 H Calcium 8.2 L Prealbumin 21.2 POC Glucose 12/16/17 12/15/17 12/15/17 06:43 17:44 16:18 POC Glucose 170 H 152 H 133 H Medical Necessity - Tobacco Use Smoking Status: Never smoker Assessment/Plan All Active Problems (Last Reviewed 10/07/17 @ 09:27 by Nicole Suazo RN) Educational circumstance (Acute) Estrogen receptor positive status [ER+] (Acute) Cancer phobia (Acute) Acquired absence of bilateral breasts and nipples (Acute) Disproportion of reconstructed breast (Acute) Primary cancer of right female breast (Acute) Diabetes (Acute) 1. Right breast cancer. 2. 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 4. Disproportion reconstructed breasts. 5. Deformity bilateral reconstructed breasts with excess mastectomy skin scar contour deformity. 6. s/p 1st stage delayed bilateral breast reconstruction with placement submuscular saline tissue fire control assistant (550 ml) and revision bilateral breast reconstruction with excision excess mastectomy skin scar contour deformity. Having some incisional pain. Has Dilaudid and Valium ordered. Will wean to po analgesia for discharge which I anticipate for tomorrow. Dressing is dry and intact. Will change dressing prior to discharge. Also has some itching probably from the Dilaudid. Added Hydroxyzine. Keep head elevated. Will remove drains in office. Will remove soliman catheter in the morning. Prealbumin was 21.2. Encourage nutritional supplementation with protein to help the healing process.
[2017-12-16 12:31] LABS: Bedside Glucose 170 mg/dL (70-110)
--- NOTE | 2017-12-16 12:34 | NURSING ---
Assisted into chair. Itching all over. Was itchy this morning but not as bad. This nurse assessed skin, no Rash, raised areas noted. Dr. Merrill aware, benadryl ordered.
[2017-12-16] MEDS: hydrOXYzine 10 MG Tablet PO (15:32)
[2017-12-16 15:34] VITALS: BP 139/72; PULSE 81; RESP 16; TEMP 37.9; O2SAT 93
[2017-12-16 16:10] LABS: Bedside Glucose 160 mg/dL (70-110)
[2017-12-16 20:00] VITALS: BP 127/71; PULSE 89; RESP 16; TEMP 37.3; O2SAT 98
[2017-12-16] MEDS: diazePAM 5 MG Tablet PO (21:39)
[2017-12-17 02:00] VITALS: BP 123/76; PULSE 67; RESP 18; TEMP 36.7; O2SAT 98
[2017-12-17] MEDS: HYDROmorphone 1 MG/ML Syringe IV ×2 (02:25→10:07)
[2017-12-17] MEDS: Lactated Ringers 1,000 ML 60 ML IV (02:25)
[2017-12-17] MEDS: Cefazolin 1 GM/50 ML BAG IV ×2 (05:52→14:15)
[2017-12-17] MEDS: oxyCODONE 5 MG Tablet 10 MG PO ×3 (05:53→18:11)
[2017-12-17] MEDS: Enoxaparin 40 MG/0.4 ML Syringe SC (05:54)
[2017-12-17] MEDS: diazePAM 5 MG Tablet PO (06:54)
[2017-12-17] MEDS: metFORMIN HCl 1,000 MG Tablet 1000 MG PO (08:15)
[2017-12-17] MEDS: Ferrous Sulfate 325 MG Tablet PO (08:15)
[2017-12-17] MEDS: LINAGLIPTIN 5 MG TABLET PO (08:16)
[2017-12-17] MEDS: Tamoxifen 10 MG Tablet 20 MG PO (08:16)
[2017-12-17] MEDS: Docusate Sodium 100 MG Capsule PO (08:16)
[2017-12-17] MEDS: Losartan Potassium 50 MG Tablet PO (08:16)
[2017-12-17 08:21] VITALS: BP 143/67; PULSE 95; RESP 16; TEMP 38; O2SAT 92
--- NOTE | 2017-12-17 11:01 | PN.SURG_ITS ---
Subjective: Postop #2 Has incisional pain, little better. Walking with assist. Little more steady on her feet. Has a dry cough. - Physical Exam General: Alert, Oriented x3 HEENT: PERRLA, EOMI Neck: Supple Lungs: No wheeze, Diminished - at bases. Cardiovascular: Regular rate, Regular Rhythm Abdomen: Soft, Non-Distended Skin: Incision - bilateral breast incisions are dry and intact. No clinical evidence of hematoma. Neurological: Cranial nerves II-XII grossly intact Psych/Mental Status: Normal Affect, Appropriate Vital Signs Temp Pulse Resp BP Pulse Ox 100.4 F H 95 16 143/67 H 92 12/17/17 08:21 12/17/17 08:21 12/17/17 08:21 12/17/17 08:21 12/17/17 08:21 Oxygen Flow Rate (L/min) 10 Oxygen Delivery Method Room Air Weight: 196 lb 13.965 oz Body Mass Index (BMI) 33.7 Finger Stick Blood Glucose 133 Intake and Output for Last 24 Hours 12/15/17 12/16/17 12/17/17 23:59 23:59 23:59 Intake Total 2100 / 2100 4505 / 4505 2090 / 2090 Output Total 355 / 355 4404 / 4404 1695 / 1695 Balance 1745 / 1745 101 / 101 395 / 395 POC Glucose 12/16/17 12/16/17 15:57 11:58 POC Glucose 160 H 170 H Drainage - 304 ml yesterday, 95 ml today. Medical Necessity - Tobacco Use Smoking Status: Never smoker Assessment/Plan All Active Problems (Last Reviewed 10/07/17 @ 09:27 by Nicole Suazo RN) Educational circumstance (Acute) Estrogen receptor positive status [ER+] (Acute) Cancer phobia (Acute) Acquired absence of bilateral breasts and nipples (Acute) Disproportion of reconstructed breast (Acute) Primary cancer of right female breast (Acute) Diabetes (Acute) 1. Right breast cancer. 2. 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 4. Disproportion reconstructed breasts. 5. Deformity bilateral reconstructed breasts with excess mastectomy skin scar contour deformity. 6. s/p 1st stage delayed bilateral breast reconstruction with placement submuscular saline tissue plant quality manager (550 ml) and revision bilateral breast reconstruction with excision excess mastectomy skin scar contour deformity. 7. Postop fever, probable atelectasis. Having less incisional pain. Will wean to po analgesia for discharge. Has some intermittent itching probably related to her IV Dilaudid. On Hydroxyzine. Bilateral breast incisions dry and intact. Keep head elevated. Will remove drains in office. Has low grade fever, probably related to atelectasis. Will check a CXR. Will recheck a CBC. Will add Levaquin. Will remove the soliman catheter today and check a Urinalysis. Prealbumin was 21.2. Encourage nutritional supplementation with protein to help the healing process. Will reassess after the studies are done for discharge.
--- NOTE | 2017-12-17 11:05 | RAD_ITS ---
STUDY: X-RAY CHEST REASON FOR EXAM: Female, 47 years old. Fever. Double mastectomy. TECHNIQUE: PA and lateral views of the chest. COMPARISON: None. FINDINGS: There are bibasilar streaky opacities, more pronounced on the left. There are catheters and rounded densities overlying the lower lungs related to recent mastectomy. Normal size heart. Normal mediastinum and charbel. Normal visualized pulmonary arteries. Normal visualized aortic arch and descending thoracic aorta. Normal visualized thoracic spine. Normal visualized ribs, clavicles, and shoulders. There is no demonstrated abnormality of the visualized soft tissue structures of the upper abdomen. RAD/Chest PA and Lateral IMPRESSION: Bibasilar streaky opacities, more pronounced on the left likely secondary to underlying atelectasis. Electronically Signed: Juana Henley MD at 11:31 EDT Tel , Service support ,
[2017-12-17 11:08] LABS: Bacteria 0 SEEN /hpf (None Seen); Mucous, Urine 0 SEEN /hpf (<or=2+); Red Blood Cells-Urine 0 SEEN /hpf (0-5)
[2017-12-17 11:10] LABS: Color, Urine Yellow (Yellow); Glucose, Dipstick Normal (Normal); Ketone-Dipstick Negative (Negative); Leukocyte Esterase-Dipstick 25 /ul (Negative); Nitrite-Dipstick Negative (Negative); Occult Blood-Urine 25 /ul (Negative); Protein-Dipstick Negative (Negative); Urine Bilirubin Dipstick Negative (Negative); Urine Clarity Clear (Clear); Urine Urobilinogen Normal (Normal)
[2017-12-17 11:10] LABS: Hematocrit 39.7 % (37-47); Hemoglobin 13.3 g/dl (12.0-15.0); Mean Corp Hgb Conc 33.5 g/gl (32-36); Mean Corpuscular Volume 83.6 fL (81-99); Mean Platelet Vol. 9.3 fl (6.2-12.0); Platelet Count 243 K/mm3 (150-450); RBC Distribution Width CV 14.1 % (11.6-14.6); RBC Distribution Width SD 42.9 fl (35.1-43.9); Red Blood Count 4.75 M/mm3 (4.2-5.4); White Blood Count 10.8 K/mm3 (4.4-11.0)
[2017-12-17 11:16] LABS: Scan Indicated on CBC? Y/N NO
[2017-12-17 11:20] LABS: Squamous Epithelial Cells - UA 0-5 SEEN /hpf (5-10); White Blood Cells 0-5 SEEN /hpf (0-5)
[2017-12-17 11:40] VITALS: BP 130/72; PULSE 86; RESP 16; TEMP 37.7; O2SAT 94
[2017-12-17 14:35] VITALS: BP 121/75; PULSE 92; RESP 18; TEMP 36.6; O2SAT 96
--- NOTE | 2017-12-17 17:35 | PN_ITS ---
Progress Note Patient feeling better. She is afebrile. CXR showed some atelectasis. Encourage incentive spirometry at home. WBC was 10.8. Urinalysis was ok. She can be discharged home. Followup office 12/25/17. Will remove drains in the office. Keep head elevated. Continue QUIANA wrap for chest wall compression. Wrote scripts for Levaquin until the drains are removed. Wrote scripts for Percocet for pain (50 tabs) and for Valium for spasm (30 tabs) . Wrote scripts for Phenergan for nausea (30 tabs) and a refill and for Colace for constipation (60 tabs). Wrote script for Hydroxyzine for itching (30 tabs) and a refill. Will repeat the CXR as an outpatient to monitor the resolution of the atelectasis.
--- NOTE | 2017-12-17 17:41 | PCM.DC ---
You will use the following diet at home:: Calorie/Carbohydrate Controlled (specify 1200, 1400, etc) Discharge Activity: May not drive while taking narcotic pain medications., May Not Shower - until the drains are removed in the office., - - keep head elevated. no heavy lifting. May shower in (days): 10 - after the drains are removed in the office. May resume sexual activity in: 10-14 days Weight Bearing Status: Weight bearing as tolerated Lifting Restrictions: 20 lbs. Keep extremity elevated above heart level: - - elevate head. Call your doctor if your incision/area has: Continuous Slow Oozing, Sudden Increased Bleeding, Increased Pain/ Swelling, Increased Redness, Foul Smelling Discharge, Swelling at the incision site Call your doctor if you observe: Fever of 101 or Higher, Coldness, Increased Pain, Shortness of breath, Chest pain, Calf discomfort, Uncontrolled pain Suture Line Care: - - dry dressings daily. Change Dressing in (Days):: 1 - dry dressings daily. Cleanse incision/area with: - - may get the incisions wet in the shower after the drains are removed in the office. Drain: Suction - joselyn drain x2 to bulb suction. empty and record output daily. Pending Tests on Discharge: Patient will obtain a CXR as an outpatient to monitor the resolution of the atelectasis. Allergies/Adverse Reactions: Allergies No Known Allergies Allergy (Verified 11/12/17 15:44) Medications to take at Discharge cholecalciferol (vitamin D3) 5,000 unit capsule 5,000 unit PO ONCE 06/30/17 ferrous sulfate 325 mg (65 mg iron) tablet 65 mg PO DAILY tab 06/30/17 losartan 100 mg tablet 50 mg PO QDAY 06/30/17 metformin 500 mg tablet 1,000 mg PO DAILY 06/30/17 sitagliptin 100 mg tablet 100 mg PO QDAY 06/30/17 Acetaminophen [Tylenol Tablet] 650 mg PO Q6H PRN PRN tab 09/03/17 Tamoxifen Citrate 20 mg PO DAILY 90 Days #90 tab 11/25/17 Diazepam [Valium] 5 mg PO 4X/DAY PRN PRN #30 tab 12/17/17 Docusate Sodium [Colace] 100 mg PO BID #60 cap 12/17/17 Hydroxyzine HCl 25 mg PO TID PRN PRN #30 tab 12/17/17 Oxycodone HCl/Acetaminophen [Percocet 5/325] 1 - 2 tab PO 4X/DAY PRN PRN 7 Days #50 tab 12/17/17 levoFLOXacin tablet [Levaquin tablet] 500 mg PO .QDAILY #14 tab 12/17/17 proMETHazine tablet [Phenergan tablet] 25 mg PO 4X/DAY PRN PRN #30 tab 12/17/17 The following prescriptions were given: Diazepam [Valium] 5 mg PO 4X/DAY PRN PRN #30 tab PRN Reason: Spasms Hydroxyzine HCl 25 mg PO TID PRN PRN #30 tab PRN Reason: Itching levoFLOXacin tablet [Levaquin tablet] 500 mg PO .QDAILY #14 tab Oxycodone HCl/Acetaminophen [Percocet 5/325] 1 - 2 tab PO 4X/DAY PRN PRN 7 Days #50 tab PRN Reason: Pain proMETHazine tablet [Phenergan tablet] 25 mg PO 4X/DAY PRN PRN #30 tab PRN Reason: Nausea/Vomiting Docusate Sodium [Colace] 100 mg PO BID #60 cap Orders to be completed after discharge: Chest PA and Lateral [RAD] Time Frame: 1 Week, Facility: [facility], Location: [facility] Primary Care Physician: Pastor Overton [Primary Care Provider] - Please Follow Up With: Ignacio Merrill MD When: thursday12/25/17 at 200pm. call [phone] if any questions. Proposed Discharge Date: 12/17/17
--- NOTE | 2017-12-17 17:47 | DCINST_ITS ---
You will use the following diet at home:: Calorie/Carbohydrate Controlled ( specify 1200, 1400, etc) Discharge Activity: May not drive while taking narcotic pain medications., May Not Shower - until the drains are removed in the office., - - keep head elevated. no heavy lifting. May shower in (days): 10 - after the drains are removed in the office. May resume sexual activity in: 10-14 days Weight Bearing Status: Weight bearing as tolerated Lifting Restrictions: 20 lbs. Keep extremity elevated above heart level: - - elevate head. Call your doctor if your incision/area has: Continuous Slow Oozing, Sudden Increased Bleeding, Increased Pain/ Swelling, Increased Redness, Foul Smelling Discharge, Swelling at the incision site Call your doctor if you observe: Fever of 101 or Higher, Coldness, Increased Pain, Shortness of breath, Chest pain, Calf discomfort, Uncontrolled pain Suture Line Care: - - dry dressings daily. Change Dressing in (Days):: 1 - dry dressings daily. Cleanse incision/area with: - - may get the incisions wet in the shower after the drains are removed in the office. Drain: Suction - joselyn drain x2 to bulb suction. empty and record output daily. Pending Tests on Discharge: Patient will obtain a CXR as an outpatient to monitor the resolution of the atelectasis. Allergies/Adverse Reactions: Allergies No Known Allergies Allergy (Verified 11/12/17 15:44) Medications to take at Discharge cholecalciferol (vitamin D3) 5,000 unit capsule 5,000 unit PO ONCE 06/30/17 ferrous sulfate 325 mg (65 mg iron) tablet 65 mg PO DAILY tab 06/30/17 losartan 100 mg tablet 50 mg PO QDAY 06/30/17 metformin 500 mg tablet 1,000 mg PO DAILY 06/30/17 sitagliptin 100 mg tablet 100 mg PO QDAY 06/30/17 Acetaminophen [Tylenol Tablet] 650 mg PO Q6H PRN PRN tab 09/03/17 Tamoxifen Citrate 20 mg PO DAILY 90 Days #90 tab 11/25/17 Diazepam [Valium] 5 mg PO 4X/DAY PRN PRN #30 tab 12/17/17 Docusate Sodium [Colace] 100 mg PO BID #60 cap 12/17/17 Hydroxyzine HCl 25 mg PO TID PRN PRN #30 tab 12/17/17 Oxycodone HCl/Acetaminophen [Percocet 5/325] 1 - 2 tab PO 4X/DAY PRN PRN 7 Days #50 tab 12/17/17 levoFLOXacin tablet [Levaquin tablet] 500 mg PO .QDAILY #14 tab 12/17/17 proMETHazine tablet [Phenergan tablet] 25 mg PO 4X/DAY PRN PRN #30 tab 12/17/17 The following prescriptions were given: Diazepam [Valium] 5 mg PO 4X/DAY PRN PRN #30 tab PRN Reason: Spasms Hydroxyzine HCl 25 mg PO TID PRN PRN #30 tab PRN Reason: Itching levoFLOXacin tablet [Levaquin tablet] 500 mg PO .QDAILY #14 tab Oxycodone HCl/Acetaminophen [Percocet 5/325] 1 - 2 tab PO 4X/DAY PRN PRN 7 Days #50 tab PRN Reason: Pain proMETHazine tablet [Phenergan tablet] 25 mg PO 4X/DAY PRN PRN #30 tab PRN Reason: Nausea/Vomiting Docusate Sodium [Colace] 100 mg PO BID #60 cap Orders to be completed after discharge: Chest PA and Lateral [RAD] Time Frame: 1 Week, Facility: [facility], Location: [facility] Primary Care Physician: Pastor Overton [Primary Care Provider] - Please Follow Up With: Ignacio Merrill MD When: thursday12/25/17 at 200pm. call [phone] if any questions. Proposed Discharge Date: 12/17/17
[2017-12-22 12:20] LABS: Bedside Glucose 181 mg/dL (70-110)
[2017-12-22 12:23] LABS: Bedside Glucose 201 mg/dL (70-110)
== END 2017-12-17 18:22 | disposition home or self-care (01) ==
LOC: SDC 16:05 → MS3 12-17 07:33
PROVIDERS: Admitting Provider Surgery; Visit Provider Surgery
PROC: (CPT 19357; principal; 2017-12-15 11:30)
DX: C50.911 Malignant neoplasm of unspecified site of right female breast (principal); F45.29 Other hypochondriacal disorders; N65.1 Disproportion of reconstructed breast; E11.9 Type 2 diabetes mellitus without complications; I10 Essential (primary) hypertension; N65.0 Deformity of reconstructed breast; Z17.0 Estrogen receptor positive status [ER+]; R50.82 Postprocedural fever
CPT/HCPCS: 00402; 19357; 36415; 71046; 80048; 81001; 81025; 82962; 84134; 85027; 87086; 88305; 96365; 96366; 96372; 96375; 96376; 99218; J7120; A4216; G0378; G0379

== ENCOUNTER → 2017-12-24 15:06 | Outpatient (CLI) | payer OTHER, SELFPAY ==
--- NOTE | 2017-12-24 15:08 | RAD_ITS ---
STUDY: X-RAY CHEST REASON FOR EXAM: Female, 47 years old. Fever following recent breast surgery. TECHNIQUE: PA and lateral views of the chest. COMPARISON: Comparison is made with prior study dated 08/19/2017. FINDINGS: Bibasilar breast prostheses. The lungs are clear and expanded. There is no demonstrated pleural abnormality. Normal size heart. Normal mediastinum and charbel. Normal visualized pulmonary arteries. Normal visualized aortic arch and descending thoracic aorta. Normal visualized thoracic spine. Normal visualized ribs, clavicles, and shoulders. There is no demonstrated abnormality of the visualized soft tissue structures of the upper abdomen. RAD/Chest PA and Lateral IMPRESSION: Normal x-ray examination of the chest. Electronically Signed: Darius Oneal MD at 10:02 EDT Tel [phone], Service support ,
== END ==
PROVIDERS: Visit Provider Surgery
DX: R50.9 Fever, unspecified (principal)
CPT/HCPCS: 71046

== ENCOUNTER → 2018-03-04 09:27 | Outpatient (CLI) | payer OTHER, SELFPAY ==
[2018-03-04 10:53] LABS: Absolute Lymphocyte Count 2.12 X10^3/ul (0.83-4.51); Absolute Neutrophil Count 3.6 X10^3/uL (2.0-7.7); Basophil# 0.02 X10^3/uL; Basophil% 0.3 % (0-1); Eosinophil# 0.13 X10^3/uL; Hematocrit 40.7 % (37-47); Hemoglobin 13.7 g/dl (12.0-15.0); Lymphocyte # 2.12 X10^3/ul (4.0); Lymphocyte % 32.8 % (19-41); Mean Corp Hgb Conc 33.7 g/gl (32-36); Mean Corpuscular Volume 83.1 fL (81-99); Mean Platelet Vol. 9.6 fl (6.2-12.0); Monocyte# 0.55 X10^3/uL; Monocyte% 8.5 % (0-10); Neutrophil # 3.62 X10^3/uL (2.7-7.7); Neutrophil % 56.1 % (47-70); Platelet Count 307 K/mm3 (150-450); RBC Distribution Width CV 13.2 % (11.6-14.6); RBC Distribution Width SD 39.2 fl (35.1-43.9); White Blood Count 6.5 K/mm3 (4.4-11.0)
[2018-03-04 10:54] LABS: Color, Urine Yellow (Yellow); Glucose, Dipstick Normal (Normal); Ketone-Dipstick Negative (Negative); Leukocyte Esterase-Dipstick 25 /ul (Negative); Nitrite-Dipstick Negative (Negative); Occult Blood-Urine 10 /ul (Negative); Protein-Dipstick Negative (Negative); Specific Gravity, Urine 1.015 (1.002-1.030); Urine Bilirubin Dipstick Negative (Negative); Urine Clarity Clear (Clear); Urine Urobilinogen Normal (Normal)
[2018-03-04 11:06] LABS: POSITIVE COUNT NO; POSITIVE DIFFERENTIAL NO; POSITIVE MORPHOLOGY NO
[2018-03-04 11:11] LABS: Hemoglobin A1c 6.7 % (4.2-6.3)
[2018-03-04 11:22] LABS: ALB/GLOB Ratio 0.9 RATIO (0.9-2.4); AST(SGOT) 19 U/L (15-37); Alanine Aminotransfer ALT/SGPT 23 U/L (13-56); Albumin, Serum 3.6 g/dL (3.2-5.0); Alkaline Phosphatase 75 U/L (45-117); Anion Gap 9 (5-15); BUN 14 mg/dL (7-18); BUN/Creat Ratio 17.7 RATIO (10-20); Calcium,Total 8.5 mg/dL (8.5-10.1); Chloride 108 mmol/L (98-107); Cholesterol 163 mg/dL (200); Creatinine, Serum 0.79 mg/dL (0.55-1.02); EST Glomerular Filtration Rate 82 mL/min (>60); Est Glom Filt Rate - Afr Amer 100 mL/min (>60); Ferritin 171 ng/mL (8-252); Globulin 4.1 g/dL (2.2-4.2); Glucose 142 mg/dL (74-106); High Density Lipoprotein 28 mg/dL; Iron 128 ug/dL (50-170); Iron Binding Capacity,Total 326 ug/dL (250-450); Potassium 3.8 mmol/L (3.5-5.1); Protein, Total 7.7 g/dL (6.4-8.2); Sodium Level 142 mmol/L (136-145); Triglycerides 217 mg/dL; Very Low Density Lipoprotein 43 mg/dL (5-40)
[2018-03-05 09:16] LABS: Vitamin B12 639 pg/mL (211-911); Vitamin D,25 Hydroxy 25.6 ng/mL (29.95-100.01)
== END ==
PROVIDERS: Visit Provider Family Medicine
DX: Z00.00 Encounter for general adult medical examination without abnormal findings (principal); I10 Essential (primary) hypertension; D50.9 Iron deficiency anemia, unspecified; E55.9 Vitamin D deficiency, unspecified; E53.8 Deficiency of other specified B group vitamins; E11.9 Type 2 diabetes mellitus without complications
CPT/HCPCS: 36415; 80053; 80061; 81002; 82306; 82607; 82728; 83036; 83540; 83550; 85025

== ENCOUNTER 2018-04-07 06:23 | Day surgery (SDC) | payer OTHER, SELFPAY ==
[2018-04-07 06:43] LABS: Internal QC Validated? YES +Cl - CLEAR BKGD; Pregnancy, Urine Negative Negative
[2018-04-07 06:51] VITALS: BP 124/77; PULSE 63; RESP 18; TEMP 36.8; O2SAT 100; BMI 34.9
[2018-04-07 07:10] LABS: Bedside Glucose 221 mg/dL (70-110)
[2018-04-07 07:50] VITALS: BP 118/74; BP 124/77; PULSE 80; RESP 16; TEMP 36.6; O2SAT 97
[2018-04-07 07:55] VITALS: BP 121/69; BP 124/77; PULSE 72; RESP 16; O2SAT 98
--- NOTE | 2018-04-07 07:55 | OP.ENDO_ITS ---
Patient Name: Jose Lopez Procedure Date: 04/07/2018 7:27 AM Date of : 1970 Age: 47 Procedure: Colonoscopy Indications: Screening in patient at increased risk: Colorectal cancer in sister before age 60 Providers: Chidi Thornton MD Referring MD: Pastor Overton Medicines: See the Anesthesia note for documentation of the administered medications Patient Profile: Last Colonoscopy: none. The patient's first colonoscopy is today. Complications: No immediate complications. Procedure: Pre-Anesthesia Assessment: - Prior to the procedure, a History and Physical was performed, and patient medications and allergies were reviewed. The patient's tolerance of previous anesthesia was also reviewed. The risks and benefits of the procedure and the sedation options and risks were discussed with the patient. All questions were answered, and informed consent was obtained. Prior Anticoagulants: The patient has taken no previous anticoagulant or antiplatelet agents. ASA Grade Assessment: II - A patient with mild systemic disease. After reviewing the risks and benefits, the patient was deemed in satisfactory condition to undergo the procedure. After I obtained informed consent, the scope was passed under direct vision. Throughout the procedure, the patient's blood pressure, pulse, and oxygen saturations were monitored continuously. The colonoscope was introduced through the anus and advanced to 8 cm into the ileum. The colonoscopy was performed without difficulty. The patient tolerated the procedure well. The quality of the bowel preparation was good. Scope In: 7:35:52 AM Scope Withdrawal Time 0 hours 6 minutes 39 seconds Scope Out: 7:47:11 AM Total Procedure Duration Time 0 hours 11 minutes 19 seconds Findings: The perianal and digital rectal examinations were normal. Non-bleeding non-thrombosed non-prolapsed internal hemorrhoids were found during retroflexion. The hemorrhoids were small. The exam was otherwise without abnormality. Impression: - Non-bleeding non-thrombosed non-prolapsed internal hemorrhoids. - The examination was otherwise normal. - No specimens collected. Recommendation: - Discharge patient to home. - Resume previous diet. - Continue present medications. - Repeat colonoscopy in 5 years for surveillance. - Return to primary care physician PRN. Procedure Code(s): --- Professional --- G0105, Colorectal cancer screening; colonoscopy on individual at high risk Diagnosis Code(s): --- Professional --- Z80.0, Family history of malignant neoplasm of digestive organs K64.8, Other hemorrhoids CPT copyright 2017 [employer]. All rights reserved. The codes documented in this report are preliminary and upon grain drier operator review may be revised to meet current compliance requirements. MD Chidi Moulton MD 04/07/2018 7:54:45 AM This report has been signed electronically. Number of Addenda: 0 Note Initiated On: 04/07/2018 7:27 AM
[2018-04-07 08:00] VITALS: BP 116/76; BP 124/77; PULSE 85; RESP 14; O2SAT 96
[2018-04-07 08:05] VITALS: BP 124/77; BP 133/81; PULSE 60; RESP 16; TEMP 36.7; O2SAT 98
[2018-04-07 08:15] VITALS: BP 124/77
== END 2018-04-07 08:25 | disposition home or self-care (01) ==
LOC: EN 06:24 → AC 06:25
PROVIDERS: Visit Provider Surgery
PROC: 0DJD8ZZ Inspection of Lower Intestinal Tract, Via Natural or Artificial Opening Endoscopic (ICD-10-PCS; CPT 45378; principal; 2018-04-07 07:25)
DX: Z12.11 Encounter for screening for malignant neoplasm of colon (principal); K64.8 Other hemorrhoids; Z80.0 Family history of malignant neoplasm of digestive organs; D64.9 Anemia, unspecified; I10 Essential (primary) hypertension; E11.9 Type 2 diabetes mellitus without complications; C50.911 Malignant neoplasm of unspecified site of right female breast; Z90.13 Acquired absence of bilateral breasts and nipples; Z79.84 Long term (current) use of oral hypoglycemic drugs; Z79.899 Other long term (current) drug therapy
CPT/HCPCS: 45378; 81025; 82962; J7120

== ENCOUNTER 2018-05-05 09:51 | Observation (INO) | payer OTHER, SELFPAY ==
--- NOTE | 2018-05-03 22:39 | PCM.HP.BLA ---
History and Physical Date of Admission: 05/04/18 HISTORY OF PRESENT ILLNESS 47 year old woman presents for the next stage in her breast reconstruction. She had right breast cancer diagnosed in 07/23. She underwent right breast mastectomy with sentinel lymph node biopsy and prophylactic mastectomy left breast at the end of August,. She had placement of saline tissue expanders in December,. After saline tissue expansion was complete, she presents today for the next stage of the breast reconstruction process which is removal of the saline tissue expanders with replacement cohesive gel implants. The right breast is a little smaller and firmer with some discomfort with palpation. She has a capsular contracture on that side and a capsulectomy will be necessary on the right side. She also has painful excess mastectomy skin scar contour deformity bilaterally mostly in the lateral aspect of the breasts that will be excised today to help with her painful symptomatology and to help with shape and contour of the breast reconstruction. Preop her HgbA1c was 6.7 on 03/04/18. PAST MEDICAL HISTORY Right breast cancer. Diabetes Hypertension PAST SURGICAL HISTORY appendectomy Right breast mastectomy with sentinel lymph node biopsy - 09/01/17 Prophylactic mastectomy left breast - 09/01/17 1st stage delayed bilateral breast reconstruction with placement submuscular saline tissue disability counselor (550 ml) and revision bilateral breast reconstruction with excision excess mastectomy skin scar contour deformity - 12/15/17 MEDICATIONS Vitamin D3. Iron Sulfate. Losartan. Metformin. Sitagliptin. ALLERGIES None. FAMILY HISTORY Colon cancer - Father and Mother and Sister. Hypertension - Mother and Sister. Lung cancer - Mother. negative for skin cancer. SOCIAL HISTORY Alcohol Use - yes Drug Use - no Patient has never smoked. REVIEW OF SYSTEMS General - Denies fever, fatigue and weight loss. Eyes - Denies eye pain. ENT - Denies nasal congestion and sore throat. CV - Denies chest pain or discomfort, fatigue, lightheadedness and shortness of breath with exertion. Resp - Denies cough and shortness of breath. GI - Denies nausea, vomiting, diarrhea and constipation. - Denies blood in urine and urinary frequency. MS - Denies joint pain, back pain, stiffness, muscle weakness and arthritis. Derm - Denies skin cancer. Neuro - Denies poor balance, headaches and weakness. Psych - Denies anxiety and depression. Endo - Denies excessive urination and excessive thirst. Has diabetes mellitus. Has recent diagnosis of right breast cancer. Heme - Denies bleeding and abnormal bruising. PHYSICAL EXAMINATION General - well developed, well nourished, in no acute distress. Head - normocephalic and atraumatic. No suspicious lesions noted Eyes - PERRL/EOM intact, conjunctiva and sclera clear. Ears - No suspicious lesions noted Nose - No suspicious lesions noted Mouth - No suspicious lesions noted Neck - no masses, thyromegaly, or abnormal cervical nodes. Chest Wall/Breasts - Mastectomy incisions are well healed. No vascular compromise noted on her breast skin flaps. No evidence of hematoma. The left breast appears a little bigger. The skin flaps are thinner on the right since it was the cancer side. The skin envelope is a little tighter on the right. The left breast is a little softer since the skin flaps aren't as thin. Both expanders are filled and firm to palpation. She is developing a capsular contracture on the right mostly superiorly and inferiorly. Breast width is 15 cm bilaterally. There is some excess mastectomy skin scar contour deformity bilaterally mostly on the lateral aspect of the breasts. Some discomfort with palpation and with the bra rubbing against it. Lungs - clear bilaterally to auscultation. Heart - regular rate and rhythm. Abdomen - Soft and non distended. Some redundant skin and subcutaneous tissue between the umbilicus and the pubic area. No hernias noted. Pulses - radial pulses are palpable. Extremities - no clubbing, cyanosis, edema. No suspicious lesions noted Neurologic - cranial nerves II-XII grossly intact. Skin - no rashes. Cervical Nodes - no significant adenopathy. Axillary Nodes - no significant adenopathy. Psych - alert and cooperative; normal mood and affect; normal attention span and concentration. ASSESSMENT 1. Right breast cancer. 2. 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 4. Disproportion reconstructed breasts. 5. Deformity bilateral reconstructed breasts with painful excess mastectomy skin scar contour deformity in lateral aspect of the breasts. 6. Capsular contracture right breast reconstruction. PLAN Patient had mastectomy in 08/23. She had placement of saline tissue expanders in 12/21. After full saline expansion, she is ready to proceed with the next stage in the breast reconstruction process which is removal of the saline tissue expanders with replacement cohesive gel implants. There are areas of excess mastectomy skin scar contour deformity bilaterally mostly on the lateral aspect of the breasts with some discomfort with the bra rubbing against it. Revision of the reconstructed breasts will be done with excision of this painful excess mastectomy skin scar contour deformity bilaterally. She will need additional revision with placement of acellular dermal matrix grafts will be placed as an inferolateral sling with anterior coverage to improve the shape and contour of the breasts and minimize lateral migration of the implant into the axillary area. At the time of the implant exchange, a capsulectomy will be done on the right to help free up the skin envelope. If there is evidence of the beginning of a contracture on the left, a capsulectomy may be done there as well. Surgery will be done under general anesthesia with a surgical observation overnight stay in the hospital. She will have drains in for several days and be maintained on antibiotics until the drains are removed. She will have a surgical bra and be on a lifting restriction. Her last HgA1C was 6.7 on 03/04/18 so we can proceed with the breast reconstruction surgery. Patient was informed of the risks and complications of the procedure including alternatives to surgery. These were discussed with the patient personally. Patient voices understanding and wishes to proceed. Some of the risks and complications were included in a form from the [employer].
[2018-05-04] VITALS (11 sets, daily range): BP systolic 120–156; BP diastolic 55–91; PULSE 62–98; RESP 14–18; TEMP 36.4–37.1; O2SAT 96–100; BMI 35.7
--- NOTE | 2018-05-04 | BRBX_PTH ---
PATIENT: TOI DIXON LOC: [facility] U#:[id number] AGE/SX: 47/F [place] [facility] [place]: Dr. Yamilka Carrera MD : 1970 BED: 1 DIS: 05/06/2018 SPEC #: [id number] RECD: 05/04/18 14:56 STATUS: CIELO GLORIA #: [id number] GILLES: 05/04/18 00:[address]: Ignacio Merrill DEPT: SURGICAL PATHOLOGY RECD BY: Heri Lei ENTERED: 05/04/18 14:57 SP TYPE: BREAST BX OTHR DR: Pastor Overton Tissues: A - Right breast, NOS B - Left breast, NOS Procedures: Surgery Specimen Level IV HEADER OPERATION: Second stage reconstruction, removal tissue expanders PRE-OP DIAGNOSIS: Acquired absence bilateral breasts; disproportion reconstructed breasts with painful excess mastectomy skin scar; contour deformity in lateral aspect of breasts, capsular contracture right breast reconstruction TISSUE SUBMITTED: A - Right capsule and breast tissue, B - Left breast tissue MICROSCOPIC DIAGNOSIS A. Right capsule and breast tissue: Skin with underlying adipose tissue and pieces of fibroconnective tissue consistent with capsular tissue with focal chronic inflammation, foreign body giant cell reaction and skeletal muscle tissue. B. Left breast tissue: A piece of skin with underlying adipose tissue with focal chronic inflammation and foreign body giant cell reaction. GRACIA:case 05/05/18 MICROSCOPIC DESCRIPTION Slides are reviewed. GROSS DESCRIPTION A - Received in fixative is one container labeled with the patient's name and designated capsule right breast tissue. The specimen consists of an irregular piece of skin with underlying tissue measuring 9 x 2 cm and up to 3.5 cm in thickness. Also present in the container are multiple pieces of adipose tissue and tissue consistent with capsular tissue measuring in aggregate 12 x 8 x 3 cm. The skin piece is previously bisected. Sections do not reveal any mass lesion. It Software Engineer sections are submitted in four cassettes. Cassette 1 contains the skin with underlying tissue. B - Received in fixative is one container labeled with the patient's name and designated left breast tissue. The specimen consists of a piece of skin with underlying tissue measuring 9 x 2 cm and up to 4 cm in thickness. The skin piece is previously bisected. Sections reveal yellow adipose cut surfaces without any mass lesion. It Software Engineer sections are submitted in four cassettes. Cassette 1 also contains the skin piece. / RGACIA:case 05/04/18 TC:3 CPT: 85742 x2
[2018-05-04 06:55] LABS: Internal QC Validated? YES +Cl - CLEAR BKGD; Pregnancy, Urine Negative Negative
[2018-05-04 07:05] LABS: Bedside Glucose 191 mg/dL (70-110)
[2018-05-04] MEDS: Cefazolin 2 GM in 0.9% Normal Saline 100 ML IV (08:09)
[2018-05-04] MEDS: Methylene Blue 1% 100 MG/10 ML VIAL (09:00)
--- NOTE | 2018-05-04 13:23 | OP.PN_ITS ---
Immediate Post-Op Note Date of Procedure: 05/04/18 Primary Surgeon/Physician: Ignacio Merrill digital media representative: Rachel Palmer. digital media representative: Janiya Centeno. Pre-Operative Diagnosis: 1. Right breast cancer. 2. Cancer phobia left hi ast. 3. Acquired absence bilateral breasts. 4. Disproportion reconstructed breasts. 5. Deformity bilateral reconstructed breasts with painful excess mastectomy skin scar contour deformity in lateral aspect of the breasts. 6. Capsular contracture right breast reconstruction. Post-Operative Diagnosis: Same. Surgery/Procedure Performed:: 1. 2nd stage bilateral breast reconstruction with removal of saline tissue expanders and replacement cohesive gel implants (800 ml). 2. Right breast capsulectomy. 3. Revision bilateral breast reconstr uction with excision painful excess mastectomy skin scar contour deformity lateral aspect of breasts and placement FlexHD acellular dermal matrix graft inferolateral sling (15 x 24 cm each side). Description of Surgical Findings:: 47 year old woman presents for the next stage in her breast reconstruction. She had right breast cancer diagnosed in 07/23. She underwent right breast mastectomy with sentinel lymph node biopsy and prophylactic mastectomy left breast at the end of August,. She had placement of saline tissue expanders in December,. After saline tissue expansion was complete, she presents today for the next stage of the breast reconstruction process which is removal of the saline tissue expanders with replacement cohesive gel implants. The right breast is a little smaller and firmer with some discomfort with palpation. She has a capsular contracture on that side and a capsulectomy will be necessary on the right side. She also has painful excess mastectomy skin scar contour deformity bilaterally mostly in the lateral aspect of the breasts that will be excised today to help with her painful symptomatology and to help with shape and contour of the breast reconstruction. Preop her HgbA1c was 6.7 on 03/04/18. Today the patient underwent 2nd stage bilateral breast reconstruction with removal of saline tissue expanders and replacement cohesive gel implants (800 ml) and right breast capsulectomy and revision bilateral breast reconstruction with excision painful excess mastectomy skin scar contour deformity lateral aspect of breasts and placement FlexHD acellular dermal matrix graft inferolateral sling (15 x 24 cm each side). IV Fluids - 2000 ml. Urine Output - 900 ml. I used [employer] MemoryGel Smooth Round Ultra High Profile Breast Implant, (800 ml on the left). Reference Number - [id number]. Lot Number - [id number]. Serial Number - [id number]. Expiration - March 04, 2023. I used [employer] MemoryGel Smooth Round Ultra High Profile Breast Implant, (800 ml on the right). Reference Number - [id number]. Lot Number - [id number]. Serial Number - [id number]. Expiration - March 23, 2023. I used MTF FlexHD Acellular Dermal Matrix Graft, Pliable Shaped, Perforated, X- Large, (15 x 24 cm on the left). Item Number - [id number]. Serial Number - [id number]. Expiration - May 05, 2020. I used MTF FlexHD Acellular Dermal Matrix Graft, Pliable Shaped, Perforated, X- Large, (15 x 24 cm on the right). Item Number - [id number]. Serial Number - [id number]. Expiration - May 05, 2020. I used Jayde absorbable hemostat, (I used 3 vials, 2 in the right breast and one in the left breast). Reference Number - [id number]. Lot Number - [id number]. Expiration - December 31, 2022, (one vial in the left breast). Reference Number - [id number]. Lot Number - [id number]. Expiration - July 02, 2022, ( 2 vials in the right breast). Estimated Blood Loss: 50 ml. Specimen's removed: 1. Right breast tissue and capsule to Pathology. 2. Left breast tissue to Pathology. Drains: Dick x 4 (2 in each breast). Type of Anesthesia:: General - Admit VTE Documentation VTE Present on Admission: No VTE Mechan Device Prophylaxis: SCD's VTE Pharm Prophylaxis ordered?: Yes
[2018-05-04 14:21] LABS: Bedside Glucose 144 mg/dL (70-110)
[2018-05-04] MEDS: Cefazolin 1 GM/50 ML BAG IV ×2 (16:27→20:41)
[2018-05-04 17:20] LABS: Bedside Glucose 212 mg/dL (70-110)
[2018-05-04] MEDS: Lactated Ringers 1,000 ML 60 ML IV (18:15)
--- NOTE | 2018-05-04 19:03 | PCM.PN.HOSP ---
Subjective: 47 yo F with a h/o HTN, DM2, and breast cancer s/p resection and placement of tissue expanders s/p b/l reconstruction today. Consulted for medical management. She currently feels well and pain is controlled. She is tolerating a liquid diet at the moment. Her dressings are intact and she has no complaints. States that her BP and DM2 is fairly well controlled as an outpatient. Vitals/I&O's: Vital Signs Temp Pulse Resp BP Pulse Ox 98.0 F 64 16 120/60 100 05/04/18 18:18 05/04/18 18:18 05/04/18 18:18 05/04/18 18:18 05/04/18 18:18 Oxygen Delivery Method Room Air Weight: 208 lb 5.389 oz Body Mass Index (BMI) 35.7 Finger Stick Blood Glucose 144 Intake and Output for Last 24 Hours 05/02/18 05/03/18 05/04/18 23:59 23:59 23:59 Intake Total 2721 / 2721 Output Total 1866 / 1866 Balance 855 / 855 General: Alert, Oriented x3, Cooperative, No apparent distress HEENT: Atraumatic, PERRLA, EOMI, Normocephalic Oral: Moist Mucosa Neck: Supple, No JVD Lungs: Clear to auscultation, Normal air movement, No rhonchi, No wheeze, No rales Cardiovascular: Regular rate, Regular Rhythm, Normal S1, Normal S2, No murmurs Abdomen: Soft, Non Tender, Non-Distended, No Hepato-splenomegaly Extremities: No edema, Capillary Refill Less than 3 Seconds Skin: No rashes, No breakdown, Incision - dressed Neurological: Neuro grossly intact, Sensory exam intact to light touch and pain Psych/Mental Status: Normal Affect, Appropriate Laboratory Results 05/04/18 06:30: Urine Test Negative 05/04/18 06:58: POC Glucose 191 H 05/04/18 14:16: POC Glucose 144 H 05/04/18 16:34: POC Glucose 212 H Current Medications Diazepam (Valium) 5 mg PO 4X/DAY PRN PRN PRN Reason: SPASMS Docusate Sodium (Colace) 100 mg PO BID RAMOS Enoxaparin Sodium (Lovenox) 40 mg SC DAILY@0600 RAMOS Ferrous Sulfate (Ferrous Sulfate) 325 mg PO DAILY@0800 [facility] Hydromorphone HCl (Dilaudid Inj) 1 mg IV Q3H PRN PRN PRN Reason: SEVERE PAIN (6-04/14) Cefazolin Sodium () 1 gm in 50 mls @ 100 mls/hr IV Q8 [facility] Last Admin: 05/04/18 16:27 Dose: 100 mls/hr Lactated Ringer's () 1,000 mls @ 60 mls/hr IV .[id number] [facility] Last Admin: 05/04/18 18:15 Dose: 60 mls/hr Metformin HCl (Glucophage Xr) 1,000 mg PO DAILY@0800 [facility] Nutritional Formula (Alberto - [place] Flavor) 1 packet PO BIDCM [facility] Last Admin: 05/04/18 16:47 Dose: 1 packet Ondansetron HCl (Zofran) 4 mg IV Q6H PRN PRN PRN Reason: NAUSEA Oxycodone HCl (Oxyir) 10 mg PO Q4H PRN PRN PRN Reason: SEVERE PAIN (-04/14) Promethazine HCl (Phenergan Tablet) 25 mg PO Q4H PRN PRN PRN Reason: NAUSEA/VOMITING Sodium Chloride () 5 - 30 ml IV UD PRN PRN Reason: SALINE FLUSH Tamoxifen Citrate (Nolvadex) 20 mg PO DAILY [facility] Medical Necessity - Tobacco Use Smoking Status: Never smoker Assessment/Plan All Active Problems (Last Reviewed 03/20/18 @ 12:05 by Mandy Maguire) Hx of bilateral mastectomy (Acute) Cancer phobia (Acute) Acquired absence of bilateral breasts and nipples (Acute) Disproportion of reconstructed breast (Acute) Estrogen receptor positive status [ER+] (Acute) Educational circumstance (Acute) Deformity of reconstructed breast (Acute) Diabetes (Acute) 1. H/o breast cancer s/p resection in Aug and reconstruction today POD0 - Pain management and fluid management per primary - Ancef for today - C.w tamoxifen 2. DM2 - Hold her home medications and place on SSI - monitor ACHS - A1c<7 3. HTN - Stable - Will hold losartan and make sure her creatinine is ok in the am prior to resuming 4. Iron deficiency anemia - Stable, H/H 13.7 in february - c/w ferrous sulfate DVT: SCDs Diet: DM
--- NOTE | 2018-05-04 19:07 | PN_ITS ---
Subjective: 47 yo F with a h/o HTN, DM2, and breast cancer s/p resection and placement of tissue expanders s/p b/l reconstruction today. Consulted for medical management. She currently feels well and pain is controlled. She is tolerating a liquid diet at the moment. Her dressings are intact and she has no complaints. States that her BP and DM2 is fairly well controlled as an outpatient. Vitals/I&O's: Vital Signs Temp Pulse Resp BP Pulse Ox 98.0 F 64 16 120/60 100 05/04/18 18:18 05/04/18 18:18 05/04/18 18:18 05/04/18 18:18 05/04/18 18:18 Oxygen Delivery Method Room Air Weight: 208 lb 5.389 oz Body Mass Index (BMI) 35.7 Finger Stick Blood Glucose 144 Intake and Output for Last 24 Hours 05/02/18 05/03/18 05/04/18 23:59 23:59 23:59 Intake Total 2721 / 2721 Output Total 1866 / 1866 Balance 855 / 855 General: Alert, Oriented x3, Cooperative, No apparent distress HEENT: Atraumatic, PERRLA, EOMI, Normocephalic Oral: Moist Mucosa Neck: Supple, No JVD Lungs: Clear to auscultation, Normal air movement, No rhonchi, No wheeze, No rales Cardiovascular: Regular rate, Regular Rhythm, Normal S1, Normal S2, No murmurs Abdomen: Soft, Non Tender, Non-Distended, No Hepato-splenomegaly Extremities: No edema, Capillary Refill Less than 3 Seconds Skin: No rashes, No breakdown, Incision - dressed Neurological: Neuro grossly intact, Sensory exam intact to light touch and pain Psych/Mental Status: Normal Affect, Appropriate Laboratory Results 05/04/18 06:30: Urine Test Negative 05/04/18 06:58: POC Glucose 191 H 05/04/18 14:16: POC Glucose 144 H 05/04/18 16:34: POC Glucose 212 H Current Medications Diazepam (Valium) 5 mg PO 4X/DAY PRN PRN PRN Reason: SPASMS Docusate Sodium (Colace) 100 mg PO BID RAMOS Enoxaparin Sodium (Lovenox) 40 mg SC DAILY@0600 RAMOS Ferrous Sulfate (Ferrous Sulfate) 325 mg PO DAILY@0800 [facility] Hydromorphone HCl (Dilaudid Inj) 1 mg IV Q3H PRN PRN PRN Reason: SEVERE PAIN (6-04/14) Cefazolin Sodium () 1 gm in 50 mls @ 100 mls/hr IV Q8 [facility] Last Admin: 05/04/18 16:27 Dose: 100 mls/hr Lactated Ringer's () 1,000 mls @ 60 mls/hr IV .[id number] [facility] Last Admin: 05/04/18 18:15 Dose: 60 mls/hr Metformin HCl (Glucophage Xr) 1,000 mg PO DAILY@0800 [facility] Nutritional Formula (Alberto - [place] Flavor) 1 packet PO BIDCM [facility] Last Admin: 05/04/18 16:47 Dose: 1 packet Ondansetron HCl (Zofran) 4 mg IV Q6H PRN PRN PRN Reason: NAUSEA Oxycodone HCl (Oxyir) 10 mg PO Q4H PRN PRN PRN Reason: SEVERE PAIN (-04/14) Promethazine HCl (Phenergan Tablet) 25 mg PO Q4H PRN PRN PRN Reason: NAUSEA/VOMITING Sodium Chloride () 5 - 30 ml IV UD PRN PRN Reason: SALINE FLUSH Tamoxifen Citrate (Nolvadex) 20 mg PO DAILY [facility] Medical Necessity - Tobacco Use Smoking Status: Never smoker Assessment/Plan All Active Problems (Last Reviewed 03/20/18 @ 12:05 by Mandy Maguire) Hx of bilateral mastectomy (Acute) Cancer phobia (Acute) Acquired absence of bilateral breasts and nipples (Acute) Disproportion of reconstructed breast (Acute) Estrogen receptor positive status [ER+] (Acute) Educational circumstance (Acute) Deformity of reconstructed breast (Acute) Diabetes (Acute) 1. H/o breast cancer s/p resection in Aug and reconstruction today POD0 - Pain management and fluid management per primary - Ancef for today - C.w tamoxifen 2. DM2 - Hold her home medications and place on SSI - monitor ACHS - A1c<7 3. HTN - Stable - Will hold losartan and make sure her creatinine is ok in the am prior to resuming 4. Iron deficiency anemia - Stable, H/H 13.7 in february - c/w ferrous sulfate DVT: SCDs Diet: DM
[2018-05-04] MEDS: Docusate Sodium 100 MG Capsule PO (20:42)
[2018-05-04] MEDS: HYDROmorphone 1 MG/ML Syringe IV (20:43)
[2018-05-04] MEDS: Insulin Lispro 100 UNIT/ML INSULN.PEN SQ (23:17)
[2018-05-04] MEDS: oxyCODONE 5 MG Tablet 10 MG PO (23:18)
[2018-05-04 23:21] LABS: Bedside Glucose 215 mg/dL (70-110)
--- NOTE | 2018-05-04 23:58 | OP.PCM_ITS ---
Report of Operation Date of Procedure: 05/04/18 Pre-Operative Diagnosis: 1. Right breast cancer. 2. 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 4. Disproportion reconstructed breasts. 5. Deformity bilateral reconstructed breasts with painful excess mastectomy skin scar contour deformity in lateral aspect of the breasts. 6. Capsular contracture right breast reconstruction. Post-Operative Diagnosis: Same. Surgery/Procedure Performed:: 1. 2nd stage bilateral breast reconstruction with removal of saline tissue expanders and replacement cohesive gel implants (800 ml). 2. Right breast capsulectomy. 3. Revision bilateral breast recon struction with excision painful excess mastectomy skin scar contour deformity lateral aspect of breasts and placement FlexHD acellular dermal matrix graft inferolateral sling (15 x 24 cm each side). Description of Surgical Findings:: 47 year old woman presents for the next stage in her breast reconstruction. She had right breast cancer diagnosed in 07/23. She underwent right breast mastectomy with sentinel lymph node biopsy and prophylactic mastectomy left breast at the end of August,. She had placement of saline tissue expanders in December,. After saline tissue expansion was complete, she presents today for the next stage of the breast reconstruction process which is removal of the saline tissue expanders with replacement cohesive gel implants. The right breast is a little smaller and firmer with some discomfort with palpation. She has a capsular contracture on that side and a capsulectomy will be necessary on the right side. She also has painful excess mastectomy skin scar contour deformity bilaterally mostly in the lateral aspect of the breasts that will be excised today to help with her painful symptomatology and to help with shape and contour of the breast reconstruction. Preop her HgbA1c was 6.7 on 03/04/18. Patient was informed of the risks and complications of the procedure including alternatives to surgery. These were discussed with the patient personally. Patient voices understanding and wishes to proceed. Some of the risks and complications were included in a form from the [employer] [place] [employer]. IV Fluids - 2000 ml. Urine Output - 900 ml. I used Comerio MemoryGel Smooth Round Ultra High Profile Breast Implant, (800 ml on the left). Reference Number - [id number]. Lot Number - [id number]. Serial Number - [id number]. Expiration - March 04, 2023. I used Comerio MemoryGel Smooth Round Ultra High Profile Breast Implant, (800 ml on the right). Reference Number - [id number]. Lot Number - [id number]. Serial Number - [id number]. Expiration - March 23, 2023. I used MTF FlexHD Acellular Dermal Matrix Graft, Pliable Shaped, Perforated, X- Large, (15 x 24 cm on the left). Item Number - [id number]. Serial Number - [id number]. Expiration - May 05, 2020. I used MTF FlexHD Acellular Dermal Matrix Graft, Pliable Shaped, Perforated, X- Large, (15 x 24 cm on the right). Item Number - [id number]. Serial Number - [id number]. Expiration - May 05, 2020. I used Jayde absorbable hemostat, (I used 3 vials, 2 in the right breast and one in the left breast). Reference Number - [id number]. Lot Number - [id number]. Expiration - December 31, 2022, (one vial in the left breast). Reference Number - [id number]. Lot Number - [id number]. Expiration - July 02, 2022, ( 2 vials in the right breast). second ride fare collector: Rachel Palmer. second ride fare collector: Janiya Centeno. Type of Anesthesia:: General Specimen's removed: 1. Right breast tissue and capsule to Pathology. 2. Left breast tissue to Pathology. Drains: Dick x 4 (2 in each breast). Estimated Blood Loss (mL): 50 ml. Fluids Replaced: 2900 ml (IV Fluids 2000 ml, and Urine Output 900 ml). Description of Procedure: While the patient was in the preop area, markings were made from the sternal midline to the umbilicus. The inframammary folds were marked bilaterally. There was some excess mastectomy skin scar contour deformity on the lateral aspects. This excess tissue was marked with a horizontal ellipse. The patient raised her arm to make sure there was enough tissue in this area to allow lifting of her arm without experiencing skin tightening and contracture. She was then taken to the OR in supine position and placed under general anethesia. SCD's were placed for DVT prophylaxis. Perioperative antibiotics were given intravenously. Her breasts were prepped and draped in the usual fashion. A soliman catheter was placed. Using xylocaine with epinephrine, the ho rizontal mastectomy scars bilateral breasts were infiltrated. After waiting 5 minutes for the anesthetic to take effect, a horizontal incision was made through the previous mastectomy scar down through the subcutaneous tissue until the capsule was seen. Because of the tightness noted on the right indicating a contracture, a capsulectomy was performed after the saline tissue insulator apprentice was removed. No abnormal fluid collection was seen in the right breast pocket. On the left breast, a capsulotomy was performed to remove the saline tissue insulator apprentice. No abnormal fluid collection was seen in the left breast pocket. Capsulotomies were performed on the left to help soften up the pocket. I then placed a 650 ml high profile xtra sizer into the breast pockets and closed the wounds temporarily with surgical clips. The patient was placed in the sitting position. Good shape and contour was noted in the breasts but the pockets were a little loose. I felt a bigger sizer could fit into the pocket. Patient was then placed back in the supine position and sizer was removed. I then tried a 700 ml high profile xtra sizer into the breast pocket. Once again it looked better but was not filling out the pocket completely. I then went to the ultra high sizers to see if there was better contour. I initially tried the 750 ml sizer and then the 800 ml sizer. The sizers were removed. I then placed FlexHD acellular dermal matrix graft, pliable shaped, perforated, x-large, size 15 x 24 cm into each breast pocket. The biologic grafts were secured to the chest wall with 3-0 Vicryl [id number] interrupted sutures, mostly in the medial, inferior, and lateral position to act as a sling to help with shape and contour. Hemostasis was obtained with electrocautery. The wounds were irrigated with saline. I placed two size 15 Dick drains through separate stab incisions inferiorly and laterally and secured to the skin with 3- 0 Nylon suture. I sprayed Jayde absorbable hemostat into the breast wound to minimize seroma formation. I used three vials, one in the left breast and two in the right breast because of the casulectomy. I then placed Comerio MemoryGel smooth round ultra high profile breast implants (800 ml) into each breast pocket underneath the biologic grafts. The wounds were temporarily closed once again with surgical clips and the patient was placed in the sitting position. Good shape and contour and symmetry were noted in the breast reconstruction. The excess mastectomy skin scar contour deformity on the lateral aspects of the breast reconstruction was excised. This breast tissue along with the capsular tissue on the right were sent separately to Pathology for analysis to rule out carcinoma. The lateral wound was temporarily closed with surgical clips. The patient was then placed back in the supine position. The surgical clips were removed and the breast wounds were closed in a multiple layered fashion. The deep capsular layer and subcutaneous tissue were approximated with 3-0 Monocryl simple interrupted sutures. A malleable was used to protect the implant during closure of this layer. The deep dermis and subcutaneous tissue was approximated with 3-0 Monocryl interrupted sutures. The skin was approximated with 3-0 V lock unidirectional barbed running subcuticular suture. This was then followed by Histoacryl skin tissue adhesive. Dry Kerlix gauze was applied followed by a surgical bra. Patient tolerated the procedure well and was sent to PACU in satisfactory condition. Patient will be sent upstairs for continued postop care. She will keep her head elevated during the initial postop period. She will have her drains removed in the next 10-14 days. Grafts/Implants Used: Comerio MemoryGel implants and FlexHD acellular grafts bilaterally. - Complications None. - Admit VTE Documentation VTE Present on Admission: No VTE Mechan Device Prophylaxis: SCD's VTE Pharm Prophylaxis ordered?: Yes Code Visit Surgery Charges CPT - 21296 ICD-10 - C50.911, F40.298, Z90.13, N65.1, N65.0, T85.44xS, T85.9xxS [id number] C50.911, F40.298, Z90.13, N65.1, N65.0, T85.44xS, T85.9xxS 60835 C50.911, T85.44xS, T85.9xxS, F40.298, Z90.13, N65.1, N65.0 44482 C50.911, N65.0, N65.1, F40.298, Z90.13, T85.44xS, T85.9xxS 29509-33 C50.911, N65.0, N65.1, F40.298, Z90.13, T85.44xS, T85.9xxS [id number] C50.911, N65.0, N65.1, F40.298, Z90.13, T85.44xS, T85.9xxS
[2018-05-05 03:00] VITALS: BP 100/55; PULSE 89; RESP 16; TEMP 37.3; O2SAT 96
[2018-05-05 06:15] LABS: Hematocrit 36.4 % (37-47); Hemoglobin 12.4 g/dl (12.0-15.0); Mean Corp Hgb Conc 34.1 g/gl (32-36); Mean Corpuscular Hgb 29.4 pg (27.0-32.0); Mean Corpuscular Volume 86.3 fL (81-99); Mean Platelet Vol. 9.9 fl (6.2-12.0); Platelet Count 259 K/mm3 (150-450); RBC Distribution Width CV 13.5 % (11.6-14.6); RBC Distribution Width SD 41.7 fl (35.1-43.9); Red Blood Count 4.22 M/mm3 (4.2-5.4); White Blood Count 10.9 K/mm3 (4.4-11.0)
[2018-05-05 06:18] LABS: Scan Indicated on CBC? Y/N NO
[2018-05-05] MEDS: Cefazolin 1 GM/50 ML BAG IV ×3 (06:30→21:27)
[2018-05-05 06:40] LABS: Anion Gap 10 (5-15); BUN 9 mg/dL (7-18); BUN/Creat Ratio 10.4 RATIO (10-20); Calcium,Total 7.9 mg/dL (8.5-10.1); Chloride 105 mmol/L (98-107); Creatinine, Serum 0.86 mg/dL (0.55-1.02); EST Glomerular Filtration Rate 75 mL/min (>60); Est Glom Filt Rate - Afr Amer 90 mL/min (>60); Estimated Creatinine Clearance 69.83 ml/min; Glucose 219 mg/dL (74-106); Potassium 3.5 mmol/L (3.5-5.1); Prealbumin 17.3 mg/dL (20.0-40.0); Sodium Level 138 mmol/L (136-145)
[2018-05-05] MEDS: oxyCODONE 5 MG Tablet 10 MG PO ×2 (06:45→15:28)
[2018-05-05] MEDS: Enoxaparin 40 MG/0.4 ML Syringe SC (06:46)
[2018-05-05] MEDS: Insulin Lispro 100 UNIT/ML INSULN.PEN SQ ×4 (06:48→21:30)
[2018-05-05 06:55] LABS: Bedside Glucose 215 mg/dL (70-110)
[2018-05-05 08:23] VITALS: BP 108/60; PULSE 93; RESP 18; TEMP 37.4; O2SAT 96
[2018-05-05] MEDS: Docusate Sodium 100 MG Capsule PO ×2 (08:26→21:27)
[2018-05-05] MEDS: Tamoxifen 10 MG Tablet 20 MG PO (08:30)
[2018-05-05] MEDS: HYDROmorphone 1 MG/ML Syringe IV (08:30)
[2018-05-05] MEDS: Ferrous Sulfate 325 MG Tablet PO (08:31)
--- NOTE | 2018-05-05 09:51 | PN_ITS ---
Subjective: Chief complaint: Follow-up after consultation for postoperative medical management. Patient seen and examined. No acute events overnight. Bilateral breast pain is manageable with current pain medication regimen. She denied any chest pain or shortness of breath. Denied abdominal pain, nausea or vomiting. Her vital signs are stable. - Physical Exam General: Alert, Oriented x3, Cooperative, No apparent distress HEENT: Atraumatic, PERRLA, EOMI, Normocephalic Oral: Moist Mucosa, No Gingival or Mucosal Lesions/ Ulcerations Neck: Supple, No JVD, Negative Carotid Bruits, Trachea Midline, Thyroid Normal Size and Texture Lungs: Clear to auscultation, Normal air movement, No rhonchi, No wheeze, No rales Cardiovascular: Regular rate, Regular Rhythm, Normal S1, Normal S2 Abdomen: Bowel Sounds Present, Soft, Non Tender, Non-Distended, No Hepato- splenomegaly, Obese Extremities: No clubbing, No cyanosis, No edema Skin: No rashes, No breakdown Lymphatic: No Cervical, Supraclavicular, or Inguinal Adenopathy Neurological: Cranial nerves II-XII grossly intact, Motor Exam 5/5 strength throughout Psych/Mental Status: Normal Affect, Appropriate, Alert and oriented to time, place, person, mood and affect Vital Signs Temp Pulse Resp BP Pulse Ox 99.3 F H 93 18 108/60 96 05/05/18 08:23 05/05/18 08:23 05/05/18 08:23 05/05/18 08:23 05/05/18 08:23 Oxygen Delivery Method Room Air Weight: 208 lb 5.389 oz Body Mass Index (BMI) 35.7 Finger Stick Blood Glucose 144 Intake and Output for Last 24 Hours 05/03/18 05/04/18 05/05/18 23:59 23:59 23:59 Intake Total 3824 / 3824 888 / 888 Output Total 2996 / 2996 650 / 650 Balance 828 / 828 238 / 238 Laboratory Tests Past 24 Hrs 05/05/18 05/05/18 05:33 05:33 WBC 10.9 RBC 4.22 Hgb 12.4 Hct 36.4 L MCV 86.3 MCH 29.4 MCHC 34.1 RDW 13.5 RDW Differential 41.7 Plt Count 259 MPV 9.9 Sodium 138 Potassium 3.5 Chloride 105 Carbon Dioxide 23.0 Anion Gap 10 BUN 9 Creatinine 0.86 Estim Creat Clear Calc 69.83 Est GFR (MDRD) Af Amer 90 Est GFR (MDRD) Non-Af 75 BUN/Creatinine Ratio 10.4 Glucose 219 H Calcium 7.9 L Prealbumin 17.3 L POC Glucose 05/05/18 05/04/18 05/04/18 06:48 23:11 16:34 POC Glucose 215 H 215 H 212 H 05/04/18 14:16 POC Glucose 144 H Medical Necessity - Tobacco Use Smoking Status: Never smoker Assessment/Plan All Active Problems (Last Reviewed 03/20/18 @ 12:05 by Mandy Maguire) Hx of bilateral mastectomy (Acute) Cancer phobia (Acute) Acquired absence of bilateral breasts and nipples (Acute) Disproportion of reconstructed breast (Acute) Estrogen receptor positive status [ER+] (Acute) Educational circumstance (Acute) Deformity of reconstructed breast (Acute) Diabetes (Acute) This is a 47 years old female patient admitted for elective second stage bilateral breast reconstructive surgery, right breast capsulectomy, revision of bilateral breast reconstruction with excision of painful excess mastectomy skin and I am seeing this patient in consultation for postoperative medical management. #1 status post second stage of bilateral breast reconstructive surgery/right breast capsulectomy/revision of bilateral breast reconstructive surgery with excision of painful excess mastectomy skin: Postoperative day 1. She is on IV cefazolin. She is on IV Dilaudid for pain as well as OxyIR. Her vital signs are stable. Routine blood work is unremarkable. Dr. Merrill is managing. #2 type 2 diabetes mellitus: She is on metformin and insulin sliding scale, blood sugar stable. #3 hypertension: Blood pressure stable, continue losartan. #4 chronic iron deficiency anemia: Continue iron supplement, stable. #5 DVT prophylaxis: SCDs, subcu Lovenox. This note was generated with [employer] dictation software. It may contain incorrect words, spelling, and punctuation that were not noted in checking the note before signing. Code Visit Inpatient E&M: 83194 Subs Hosp L2
[2018-05-05 11:55] LABS: Bedside Glucose 225 mg/dL (70-110)
[2018-05-05 13:43] VITALS: BP 107/62; PULSE 95; RESP 18; TEMP 38.2; O2SAT 95
[2018-05-05] MEDS: Lactated Ringers 1,000 ML 60 ML IV (13:46)
[2018-05-05] MEDS: Acetaminophen 325 MG Tablet 650 MG PO (15:28)
[2018-05-05 17:05] LABS: Bedside Glucose 267 mg/dL (70-110)
--- NOTE | 2018-05-05 17:26 | PN.SURG_ITS ---
Subjective: Postop #1 Patient complains of incisional pain. - Physical Exam General: Alert, Oriented x3 HEENT: PERRLA, EOMI Oral: Moist Mucosa Neck: Supple Abdomen: Soft, Non-Distended Skin: Incision - breast incisions are dry and intact. Breasts are soft and symmetrical. No clinical evidence of hematoma. No vascular compromise noted on the breast skin flaps. Neurological: Cranial nerves II-XII grossly intact Psych/Mental Status: Normal Affect, Appropriate Vital Signs Temp Pulse Resp BP Pulse Ox 100.8 F H 95 18 107/62 95 05/05/18 13:43 05/05/18 13:43 05/05/18 13:43 05/05/18 13:43 05/05/18 13:43 Oxygen Delivery Method Room Air Weight: 208 lb 5.389 oz Body Mass Index (BMI) 35.7 Finger Stick Blood Glucose 144 Intake and Output for Last 24 Hours 05/03/18 05/04/18 05/05/18 23:59 23:59 23:59 Intake Total 3824 / 3824 2249 / 2249 Output Total 2996 / 2996 2955 / 2955 Balance 828 / 828 -706 / -706 Drainage 221 ml yesterday, 105 ml today. Laboratory Tests Past 24 Hrs 05/05/18 05/05/18 05:33 05:33 WBC 10.9 RBC 4.22 Hgb 12.4 Hct 36.4 L MCV 86.3 MCH 29.4 MCHC 34.1 RDW 13.5 RDW Differential 41.7 Plt Count 259 MPV 9.9 Sodium 138 Potassium 3.5 Chloride 105 Carbon Dioxide 23.0 Anion Gap 10 BUN 9 Creatinine 0.86 Estim Creat Clear Calc 69.83 Est GFR (MDRD) Af Amer 90 Est GFR (MDRD) Non-Af 75 BUN/Creatinine Ratio 10.4 Glucose 219 H Calcium 7.9 L Prealbumin 17.3 L POC Glucose 05/05/18 05/05/18 05/05/18 16:48 11:40 06:48 POC Glucose 267 H 225 H 215 H 05/04/18 23:11 POC Glucose 215 H Medical Necessity - Tobacco Use Smoking Status: Never smoker Assessment/Plan All Active Problems (Last Reviewed 03/20/18 @ 12:05 by Mandy Maguire) Hx of bilateral mastectomy (Acute) Cancer phobia (Acute) Acquired absence of bilateral breasts and nipples (Acute) Disproportion of reconstructed breast (Acute) Estrogen receptor positive status [ER+] (Acute) Educational circumstance (Acute) Deformity of reconstructed breast (Acute) Diabetes (Acute) 1. Right breast cancer. 2. 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 4. Disproportion reconstructed breasts. 5. Deformity bilateral reconstructed breasts with painful excess mastectomy s kin scar contour deformity in lateral aspect of the breasts. 6. Capsular contracture right breast reconstruction. 7. s/p 2nd stage bilateral breast reconstruction with removal of saline tissue expanders and replacement cohesive gel implants (800 ml) and right breast capsulectomy and revision bilateral breast reconstruction with excision painful excess mastectomy skin scar contour deformity lateral aspect of breasts and placement FlexHD acellular dermal matrix graft inferolateral sling (15 x 24 cm each side). Patient is resting comfortably. Still needs occasional IV analgesia. Will wean to po analgesia in preparation for discharge. Anticipate discharge tomorrow. She is a little unsteady on her feet with ambulation. Encourage better steadiness with ambulation prior to discharge. Keep head elevated. Maintain surgical bra and lifting restriction. Will have drains removed in the office.
[2018-05-05 18:00] VITALS: TEMP 37.5
[2018-05-05 19:45] VITALS: BP 101/52; PULSE 85; RESP 16; TEMP 37.4; O2SAT 97
[2018-05-05] MEDS: DiphenhydrAMINE 25 MG Capsule 50 MG PO (20:22)
[2018-05-05 21:36] LABS: Bedside Glucose 245 mg/dL (70-110)
[2018-05-06 02:00] VITALS: BP 113/64; PULSE 84; RESP 16; TEMP 37.2; O2SAT 96
[2018-05-06] MEDS: Cefazolin 1 GM/50 ML BAG IV (06:53)
[2018-05-06] MEDS: Enoxaparin 40 MG/0.4 ML Syringe SC (06:53)
[2018-05-06] MEDS: Insulin Lispro 100 UNIT/ML INSULN.PEN SQ (06:53)
[2018-05-06 07:00] LABS: Bedside Glucose 210 mg/dL (70-110)
[2018-05-06] MEDS: oxyCODONE 5 MG Tablet 10 MG PO (07:29)
[2018-05-06] MEDS: Lactated Ringers 1,000 ML 60 ML IV (07:32)
[2018-05-06 08:29] VITALS: BP 112/55; PULSE 91; RESP 18; TEMP 37.3; O2SAT 95
[2018-05-06] MEDS: Ferrous Sulfate 325 MG Tablet PO (08:33)
[2018-05-06] MEDS: Docusate Sodium 100 MG Capsule PO (08:33)
[2018-05-06] MEDS: Tamoxifen 10 MG Tablet 20 MG PO (08:34)
--- NOTE | 2018-05-06 08:58 | PCM.PN.SRG ---
Subjective: Postop #2 Patient is resting comfortably. She is more stead on her feet with ambulation. - Physical Exam General: Alert, Oriented x3 HEENT: PERRLA, EOMI Oral: Moist Mucosa Neck: Supple Abdomen: Soft, Non-Distended Skin: Incision - breast incisions are dry and intact. Breasts are soft and symmetrical. No clinical evidence of hematoma. No vascular compromise noted on her breast skin flaps. Neurological: Cranial nerves II-XII grossly intact Psych/Mental Status: Normal Affect, Appropriate Vital Signs Temp Pulse Resp BP Pulse Ox 99.1 F 91 18 112/55 L 95 05/06/18 08:29 05/06/18 08:29 05/06/18 08:29 05/06/18 08:29 05/06/18 08:29 Oxygen Delivery Method Room Air Weight: 208 lb 5.389 oz Body Mass Index (BMI) 35.7 Finger Stick Blood Glucose 144 Intake and Output for Last 24 Hours 05/04/18 05/05/18 05/06/18 23:59 23:59 23:59 Intake Total 3824 / 3824 2249 / 2249 1741 / 1741 Output Total 2996 / 2996 2955 / 2955 90 / 90 Balance 828 / 828 -706 / -706 1651 / 1651 POC Glucose 05/06/18 05/05/18 05/05/18 06:40 21:30 16:48 POC Glucose 210 H 245 H 267 H 05/05/18 11:40 POC Glucose 225 H Drainage 105 ml yesterday, 90 ml today. Medical Necessity - Tobacco Use Smoking Status: Never smoker Assessment/Plan All Active Problems (Last Reviewed 03/20/18 @ 12:05 by Mandy Maguire) Hx of bilateral mastectomy (Acute) Cancer phobia (Acute) Acquired absence of bilateral breasts and nipples (Acute) Disproportion of reconstructed breast (Acute) Estrogen receptor positive status [ER+] (Acute) Educational circumstance (Acute) Deformity of reconstructed breast (Acute) Diabetes (Acute) 1. Right breast cancer. 2. 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 4. Disproportion reconstructed breasts. 5. Deformity bilateral reconstructed breasts with painful excess mastectomy skin scar contour deformity in lateral aspect of the breasts. 6. Capsular contracture right breast reconstruction. 7. s/p 2nd stage bilateral breast reconstruction with removal of saline tissue expanders and replacement cohesive gel implants (800 ml) and right breast capsulectomy and revision bilateral breast reconstruction with excision painful excess mastectomy skin scar contour deformity lateral aspect of breasts and placement FlexHD acellular dermal matrix graft inferolateral sling (15 x 24 cm each side). Patient is resting comfortably. Still is tolerating po analgesia. She is more steady on her feet with ambulation. Keep head elevated. Maintain surgical bra and lifting restriction. Discharge home today. Will have drains removed in the office. Followup office one week. Wrote script for Cefadroxil for 14 days until the drains are removed. Wrote scripts for Percocet for pain (50 tabs) and for Valium for spasm (30 tabs).
--- NOTE | 2018-05-06 09:19 | PN_ITS ---
Subjective: Chief complaint: Follow-up after consultation for postoperative medical management. Patient seen and examined. No acute events overnight. Today, she has no specific complaints. Bilateral wrist pain is manageable and under control. Her vital signs are stable. - Physical Exam General: Alert, Oriented x3, Cooperative, No apparent distress HEENT: Atraumatic, PERRLA, EOMI, Normocephalic Oral: Moist Mucosa, No Gingival or Mucosal Lesions/ Ulcerations Neck: Supple, No JVD, Negative Carotid Bruits, Trachea Midline, Thyroid Normal Size and Texture Lungs: Clear to auscultation, Normal air movement, No rhonchi, No wheeze, No rales Cardiovascular: Regular rate, Regular Rhythm, Normal S1, Normal S2, PMI Normal Abdomen: Bowel Sounds Present, Soft, Non Tender, Non-Distended, No Hepato- splenomegaly, Obese Extremities: No clubbing, No cyanosis, No edema Skin: No rashes, No breakdown Neurological: Cranial nerves II-XII grossly intact, Neuro grossly intact Psych/Mental Status: Normal Affect, Appropriate Vital Signs Temp Pulse Resp BP Pulse Ox 99.1 F 91 18 112/55 L 95 05/06/18 08:29 05/06/18 08:29 05/06/18 08:29 05/06/18 08:29 05/06/18 08:29 Oxygen Delivery Method Room Air Weight: 208 lb 5.389 oz Body Mass Index (BMI) 35.7 Finger Stick Blood Glucose 144 Intake and Output for Last 24 Hours 05/04/18 05/05/18 05/06/18 23:59 23:59 23:59 Intake Total 3824 / 3824 2249 / 2249 1741 / 1741 Output Total 2996 / 2996 2955 / 2955 90 / 90 Balance 828 / 828 -706 / -706 1651 / 1651 POC Glucose 05/06/18 05/05/18 05/05/18 06:40 21:30 16:48 POC Glucose 210 H 245 H 267 H 05/05/18 11:40 POC Glucose 225 H Medical Necessity - Tobacco Use Smoking Status: Never smoker Assessment/Plan All Active Problems (Last Reviewed 03/20/18 @ 12:05 by Mandy Maguire) Hx of bilateral mastectomy (Acute) Cancer phobia (Acute) Acquired absence of bilateral breasts and nipples (Acute) Disproportion of reconstructed breast (Acute) Estrogen receptor positive status [ER+] (Acute) Educational circumstance (Acute) Deformity of reconstructed breast (Acute) Diabetes (Acute) This is a 47 years old female patient admitted for elective second stage bilateral breast reconstructive surgery, right breast capsulectomy, revision of bilateral breast reconstruction with excision of painful excess mastectomy skin and I am seeing this patient in consultation for postoperative medical management. #1 status post second stage of bilateral breast reconstructive surgery/right breast capsulectomy/revision of bilateral breast reconstructive surgery with excision of painful excess mastectomy skin: Postoperative day 2. She is on IV cefazolin. She is on IV Dilaudid for pain as well as OxyIR, pain is well controlled. She has spike of low-grade fever yesterday and since then, she has been afebrile. She denies any symptoms. Infection. Other vital signs are stable. Routine blood work is unremarkable. From medical standpoint, patient can be discharged on the same medication that she has been taking without any changes. #2 type 2 diabetes mellitus: She is on metformin and insulin sliding scale, blood sugar stable. #3 hypertension: Blood pressure stable, continue losartan. #4 chronic iron deficiency anemia: Continue iron supplement, stable. #5 DVT prophylaxis: SCDs, subcu Lovenox. This note was generated with [employer] dictation software. It may contain incorrect words, spelling, and punctuation that were not noted in checking the note before signing. Code Visit Inpatient E&M: 96616 Subs Hosp L2
--- NOTE | 2018-05-06 09:24 | DCINST_ITS ---
You will use the following diet at home:: Calorie/Carbohydrate Controlled (specify 1200, 1400, etc) Discharge Activity: May not drive while taking narcotic pain medications., May Not Shower - until the drains are removed., - - no heavy lifting. keep head elevated. May shower in (days): 14 - may shower after the drains are removed. May resume sexual activity in: 10-14 days Weight Bearing Status: Weight bearing as tolerated Lifting Restrictions: 20 lbs. Keep extremity elevated above heart level: - - elevate head. Call your doctor if your incision/area has: Continuous Slow Oozing, Sudden Increased Bleeding, Increased Pain/ Swelling, Increased Redness, Foul Smelling Discharge, Swelling at the incision site Call your doctor if you observe: Fever of 101 or Higher, Coldness, Increased Pain, Shortness of breath, Chest pain, Calf discomfort, Uncontrolled pain Suture Line Care: - - dry dressings daily. Change Dressing in (Days):: 1 - dry dressings daily. Cleanse incision/area with: - - may get incisions wet in the shower after the drains are removed. Drain: Suction - joselyn drain x4 to bulb suction. empty and record output daily. Allergies/Adverse Reactions: Allergies No Known Allergies Allergy (Verified 04/27/18 11:05) Medications to take at Discharge cholecalciferol (vitamin D3) 5,000 unit capsule 5,000 unit PO DAILY 06/30/17 ferrous sulfate 325 mg (65 mg iron) tablet 65 mg PO DAILY tab 06/30/17 losartan 100 mg tablet 50 mg PO QDAY 06/30/17 metformin 500 mg tablet 1,000 mg PO DAILY 06/30/17 sitagliptin 100 mg tablet 100 mg PO QDAY 06/30/17 Tamoxifen Citrate 20 mg PO DAILY 90 Days #90 tab 11/25/17 Acetaminophen [Tylenol Tablet] 650 mg PO Q6H PRN PRN tablet 05/06/18 Cefadroxil [Duricef] 500 mg PO BID #28 cap 05/06/18 Diazepam [Valium] 5 mg PO 4X/DAY PRN PRN #30 tab 05/06/18 Docusate Sodium [Colace] 100 mg PO BID capsule 05/06/18 Glucagon 1 mg IM .X1 PRN syringe 05/06/18 Oxycodone HCl/Acetaminophen [Percocet 5/325] 1 - 2 tab PO 4X/DAY PRN PRN 7 Days #50 tab 05/06/18 proMETHazine tablet [Phenergan tablet] 25 mg PO Q4H PRN PRN tablet 05/06/18 The following prescriptions were given: Diazepam [Valium] 5 mg PO 4X/DAY PRN PRN #30 tab PRN Reason: Spasms Oxycodone HCl/Acetaminophen [Percocet 5/325] 1 - 2 tab PO 4X/DAY PRN PRN 7 Days #50 tab PRN Reason: Pain Cefadroxil [Duricef] 500 mg PO BID #28 cap Primary Care Physician: Pastor Overton [Primary Care Provider] - Test Results: Test results from this visit will be discussed in further detail at your follow- up appointment, if applicable. Please Follow Up With: Ignacio Merrill MD When: one week. call [phone] for appt. Proposed Discharge Date: 05/06/18
== END 2018-05-06 09:23 | disposition home or self-care (01) ==
LOC: SDC 05-06 09:26 → MS3 05-06 09:26
PROVIDERS: Admitting Provider Hospitalist; Referring Provider Surgery; Visit Provider Hospitalist
PROC: (CPT 19340; principal; 2018-05-04 07:40)
DX: C50.911 Malignant neoplasm of unspecified site of right female breast (principal); N65.1 Disproportion of reconstructed breast; F45.29 Other hypochondriacal disorders; L90.5 Scar conditions and fibrosis of skin; N65.0 Deformity of reconstructed breast; T85.44XA Capsular contracture of breast implant, initial encounter; E11.9 Type 2 diabetes mellitus without complications; Z79.899 Other long term (current) drug therapy; Z79.84 Long term (current) use of oral hypoglycemic drugs; I10 Essential (primary) hypertension; D50.9 Iron deficiency anemia, unspecified; Z17.0 Estrogen receptor positive status [ER+]
CPT/HCPCS: 00402; 19340; 19371; 19380; 36415; 80048; 81025; 82962; 84134; 85027; 88305; 96365; 96366; 96372; 96375; 96376; 99218; J7120; G0378; G0379; J2405

== ENCOUNTER → 2019-04-21 12:42 | Outpatient (CLI) | payer OTHER, SELFPAY ==
[2019-04-07 15:16] VITALS: BMI 36.1
--- NOTE | 2019-04-21 12:46 | MRI_ITS ---
STUDY: BILATERAL BREAST MR WITHOUT AND WITH CONTRAST REASON FOR EXAM: Female, 48 years old. Right breast lump for 4 years. History of breast cancer with mastectomy and reconstruction. TECHNIQUE: Multi-sequence multi-echo imaging of both breasts was performed with a dedicated breast coil. T1-weighted and T2-weighted images were performed before the administration of contrast. T1-weighted images were also performed after the administration of IV Dotarem 20 without complications. COMPARISON: Prior breast MR with contrast dated July 28, 2017, screening mammogram dated June 04, 2017. FINDINGS: Bilateral mastectomies with implant placement bilaterally. No complications of the implants. No enhancing lesions in either breast. No enlarged or abnormal lymph nodes. No abnormality in the visualized regions of the chest or liver. MRI/Breast Bilateral W/O and W IMPRESSION: Bilateral mastectomies with bilateral implant placement without complications. No other abnormality. CATEGORY: BIRADS Category 2: Benign. A letter regarding these results will be sent to the patient by the facility within 30 days. Electronically Signed: Ruperto Garland MD at 10:23 EDT , Service support ,
[2019-04-21 13:34] LABS: Hemoglobin A1c 8.5 % (4.2-6.3)
== END ==
PROVIDERS: Referring Provider Surgery; Visit Provider Surgery
DX: C50.911 Malignant neoplasm of unspecified site of right female breast (principal); Z90.13 Acquired absence of bilateral breasts and nipples; Z98.82 Breast implant status; N63.10 Unspecified lump in the right breast, unspecified quadrant; V89.2XXA Person injured in unspecified motor-vehicle accident, traffic, initial encounter; S20.01XS Contusion of right breast, sequela; S20.02XS Contusion of left breast, sequela; E11.9 Type 2 diabetes mellitus without complications
CPT/HCPCS: 36415; 77049; 83036; A9575; A4216; C8908

== ENCOUNTER → 2019-11-01 09:38 | Outpatient (CLI) | payer OTHER, SELFPAY ==
[2019-10-18 14:55] VITALS: BMI 35.1
[2019-11-01 12:40] LABS: Hemoglobin A1c 7.6 % (4.2-6.3)
== END ==
PROVIDERS: Referring Provider Family Medicine; Visit Provider Family Medicine
DX: E11.9 Type 2 diabetes mellitus without complications (principal)
CPT/HCPCS: 36415; 83036

== ENCOUNTER → 2021-11-08 | Outpatient (CLI) | payer OTHER, SELFPAY ==
[2021-11-08 11:39] LABS: Absolute Lymphocyte Count 2.64 X10^3/uL (0.83-4.51); Absolute Neutrophil Count 3.3 X10^3/uL (2.0-7.7); Basophil# 0.05 X10^3/uL; Basophil% 0.8 % (0-1); Eosinophil# 0.16 X10^3/uL; Eosinophils% 2.4 % (0-5); Hematocrit 44.9 % (37-47); Hemoglobin 15.4 g/dL (12.0-15.0); Lymphocyte # 2.64 X10^3/ul (0.83-4.51); Lymphocyte % 39.9 % (19-41); Mean Corp Hgb Conc 34.3 g/dL (32-36); Mean Corpuscular Hgb 29.3 pg (27.0-32.0); Mean Corpuscular Volume 85.5 fL (81-99); Mean Platelet Vol. 9.1 fl (6.2-12.0); Monocyte# 0.48 X10^3/uL; Monocyte% 7.3 % (0-10); NRBC Flagged by Analyzer 0 % (0-5); Neutrophil # 3.26 X10^3/uL (2.7-7.7); Neutrophil % 49.1 % (47-70); Platelet Count 272 K/mm3 (150-450); RBC Distribution Width CV 12.7 % (11.6-14.6); RBC Distribution Width SD 39.7 fl (35.1-43.9); Red Blood Count 5.25 M/mm3 (4.2-5.4); White Blood Count 6.6 K/mm3 (4.4-11.0)
[2021-11-08 12:00] LABS: Hemoglobin A1c 9.4 % (3.8-5.6)
[2021-11-08 12:03] LABS: Microalbumin,Random Urine 24.6 mg/L (NO RANGE EST.)
[2021-11-08 12:18] LABS: AST(SGOT) 21 U/L (15-37); Alanine Aminotransfer ALT/SGPT 29 U/L (13-56); Albumin, Serum 3.8 g/dL (3.2-5.0); Alkaline Phosphatase 139 U/L (45-117); Anion Gap 4 (5-15); BUN 15 mg/dL (7-18); BUN/Creat Ratio 19.6 RATIO (10-20); Calcium,Total 8.9 mg/dL (8.5-10.1); Chloride 107 mmol/L (98-107); Cholesterol 167 mg/dL (200); Creatinine, Serum 0.76 mg/dL (0.55-1.02); EST Glomerular Filtration Rate 85 mL/min (>60); Est Glom Filt Rate - Afr Amer 102 mL/min (>60); Ferritin 381 ng/mL (8-252); Glucose 238 mg/dL (74-106); High Density Lipoprotein 33 mg/dL; Iron 96 ug/dL (50-170); Iron Binding Capacity,Total 365 ug/dL (250-450); PERCENT IRON SATURATION 26.3 % (15.0-55.0); Potassium 4.5 mmol/L (3.5-5.1); Protein, Total 7.8 g/dL (6.4-8.2); Sodium Level 139 mmol/L (136-145); Triglycerides 440 mg/dL
[2021-11-08 12:48] LABS: Vitamin D,25 Hydroxy 28.8 ng/mL
== END | disposition home or self-care (01) ==
LOC: LAB 11:03
DX: I10 Essential (primary) hypertension (principal); E11.9 Type 2 diabetes mellitus without complications; E55.9 Vitamin D deficiency, unspecified; D50.9 Iron deficiency anemia, unspecified; Z13.220 Encounter for screening for lipoid disorders
CPT/HCPCS: 36415; 80053; 80061; 82043; 82306; 82728; 83036; 83540; 83550; 85025

== ENCOUNTER → 2021-11-20 | Outpatient (CLI) | payer OTHER, SELFPAY ==
--- NOTE | 2021-11-20 07:49 | US_ITS ---
STUDY: ULTRASOUND BREAST - RIGHT REASON FOR EXAM: Female, 51 years old. History of bilateral mastectomy with breast implants. TECHNIQUE: Axial and longitudinal images of the RIGHT breast were performed with a high resolution ultrasound transducer. # OF IMAGES: 106 COMPARISON: None. FINDINGS: RIGHT Breast: The entire right breast was examined with ultrasound. The implant wasn''t visualized. The axillary region is unremarkable. IMPRESSION: Unremarkable sonogram of the right breast ASSESSMENT CATEGORY: BIRADS Category 2: Benign. A letter regarding these results will be sent to the patient by the facility within 30 days. Electronically Signed: Darius Oneal MD at 8:51 EDT , STUDY: ULTRASOUND BREAST - LEFT REASON FOR EXAM: Female, 51 years old. History of breast cancer. Bilateral mastectomy with implants. TECHNIQUE: Axial and longitudinal images of the LEFT breast were performed with a high resolution ultrasound transducer. # OF IMAGES: 106 COMPARISON: None. FINDINGS: LEFT Breast: Imaging of the left breast and left axillary region was performed. The patient is status post left mastectomy. The breast implant is unremarkable. No axillary abnormality is seen. US/Breast Complete Bilateral IMPRESSION: Unremarkable examination. ASSESSMENT CATEGORY: BIRADS Category 2: Benign. A letter regarding these results will be sent to the patient by the facility within 30 days. Electronically Signed: Darius Oneal MD at 8:51 EDT ,
== END | disposition home or self-care (01) ==
LOC: OPUS 07:45
DX: Z85.3 Personal history of malignant neoplasm of breast (principal); Z98.82 Breast implant status
CPT/HCPCS: 76641

== ENCOUNTER → 2022-12-10 | Outpatient (CLI) | payer OTHER, SELFPAY ==
--- NOTE | 2022-12-10 15:21 | US_ITS ---
STUDY: ULTRASOUND OF THE FEMALE PELVIS - COMPLETE REASON FOR EXAM: Female, 52 years old. Bleeding postmenopausal LMP: April 2021 TECHNIQUE: Transabdominal and Transvaginal TECHNICAL QUALITY: Adequate. COMPARISON: None. FINDINGS: The uterus is anteverted and is in a midline position. The uterus measures 7.7 cm x 4.4 cm x 3 cm. There is a Nabothian cyst of the cervix. The endometrium is thickened and measures 13.4 mm in thickness, and is hyperechoic. There is no demonstrated endometrial mass. 2 subcentimeter fibroids are seen. Heterogeneous echotexture of the myometrium. I.U.D. - The patient does not have an I.U.D. The right ovary is visualized. The right ovary measures 3.6 cm x 2.4 cm x 2.7 cm. There is no right ovarian cyst or ovarian mass. There is no visualized right adnexal mass or complex lesion. There is normal arterial and normal venous vascularity. The left ovary is visualized. The left ovary measures 3 cm x 2.4 cm x 2.3 cm. There is no left ovarian cyst or ovarian mass. There is no visualized left adnexal mass or complex lesion. There is normal arterial and normal venous vascularity. There is no fluid in the cul-de-sac. The pre void volume of the bladder was 731 ml. US/Pelvic (Non ) IMPRESSION: Heterogeneously thickened endometrium. Small uterine fibroids. Electronically Signed: Darius Oneal MD at 15:02 EDT ,
== END | disposition home or self-care (01) ==
LOC: US 15:19
PROVIDERS: Referring Provider Obstetrics & Gynecology; Visit Provider Obstetrics & Gynecology
DX: N95.0 Postmenopausal bleeding (principal)
CPT/HCPCS: 76830; 76856

== ENCOUNTER → 2022-12-24 | Outpatient (CLI) | payer OTHER, SELFPAY ==
[2022-12-24 16:36] LABS: Estradiol 15.5 pg/mL; Thyroid Stim Hormone (TSH) 1.91 uIU/mL (0.358-3.74)
== END | disposition home or self-care (01) ==
PROVIDERS: Referring Provider Obstetrics & Gynecology; Visit Provider Obstetrics & Gynecology
DX: Z13.29 Encounter for screening for other suspected endocrine disorder (principal); N95.0 Postmenopausal bleeding
CPT/HCPCS: 36415; 82670; 84443

== ENCOUNTER → 2022-12-26 | Outpatient (CLI) | payer OTHER, SELFPAY ==
--- NOTE | 2022-12-26 14:40 | EMB_PTH ---
PATIENT: TOI DIXON LOC: [facility] U#:[id number] AGE/SX: 52/F ROOM: RE12/26/[address]: Dr. Breanna Ferrera MD : 1970 BED: DIS: 12/26/2022 SPEC #: [id number] RECD: 12/26/22 15:49 STATUS: CIELO RESkip #: [id number] GILLES: 12/26/22 14:[address]: Breanna Ferrera DEPT: SURGICAL PATHOLOGY RECD BY: Erika Mckeon ENTERED: 12/29/22 11:40 SP TYPE: ENDOM BX/C DINORA DR: Pastor Overton Tissues: Endometrium, NOS Procedures: Surgery Specimen Level IV HEADER OPERATION: Endometrial biopsy PRE-OP DIAGNOSIS: Thickened endometrium TISSUE SUBMITTED: Endometrial lining MICROSCOPIC DIAGNOSIS Endometrium, biopsy: Polypoid fragments of secretory to transition endometrium with mild disorder and hemorrhagic infarction. AM:case 12/30/2022 COMMENT Case has been reviewed in consultation with Dr. Thorne who concurs with the above diagnosis. IDC:SJ MICROSCOPIC DESCRIPTION Slides are reviewed. GROSS DESCRIPTION Received is one container labeled with the patient's name and not further designated. The specimen consists of a blood clot measuring 4.0 x 1.2 x 0.5 cm. Also present in the container are multiple fragments of hemorrhagic soft tissue measuring in aggregate 2.0 x 1.0 x 0.1 cm. The entire specimen is submitted in three cassettes. Cassettes 1 & 2 contain the blood clot. / GRACIA:case 12/29/2022 TC:5 CPT: 43006
[2023-01-05 13:07] LABS: HPV APTIMA, High Risk Negative (Negative)
== END | disposition home or self-care (01) ==
LOC: LABSPEC 15:56
PROVIDERS: Referring Provider Obstetrics & Gynecology; Visit Provider Obstetrics & Gynecology
DX: Z12.4 Encounter for screening for malignant neoplasm of cervix (principal)
CPT/HCPCS: 87624; 88175; 88305; G0145

== ENCOUNTER → 2023-08-03 | Outpatient (CLI) | payer OTHER, SELFPAY ==
--- OUTSIDE RECORDS SUMMARY | 2023-08-03 15:40 | XMS RPT_ITS | CCD ---
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 kg (202 lb 6.4 oz) SpO2 98% BMI 34.74 kg/m? Physical Exam Vitals reviewed. Constitutional: Appearance: Normal appearance. HENT: Head: Normocephalic and atraumatic. Nose: Nose normal. Eyes: Extraocular Movements: Extraocular movements intact. Pupils: Pupils are equal, round, and reactive to light. Cardiovascular: Rate and Rhythm: Normal rate and regular rhythm. Pulmonary: Effort: Pulmonary effort is normal. Breath sounds: Normal breath sounds. Abdominal: General: Bowel sounds are normal. Palpations: Abdomen is soft. Musculoskeletal: General: Normal range of motion. Cervical back: Normal range of motion and neck supple. Skin: General: Skin is warm and dry. Capillary Refill: Capillary refill takes less than 2 seconds. Neurological: General: No focal deficit present. Mental Status: She is alert and oriented to person, place, and time. Mental status is at baseline. Psychiatric: Mood and Affect: Mood normal. Behavior: Behavior normal. Assessment and Plan Encounter Diagnosis ICD-10-CM 1. Wellness examination Z00.00 2. Encounter for screening for depression Z13.31 DEPRESSION SCREENING/ASSESSMENT 3. Hypertriglyceridemia E78.1 omega-3 acid ethyl esters (LOVAZA) 1 gram capsule 4. Diabetes beginning in adulthood (type 2/adult onset) (HCC) E11.9 HGB A1C Improved on current regimen. 5. Pure hypercholesterolemia E78.00 LIPID PANEL BASIC COMP METABOLIC PANEL 6. Hypertension, essential I10 COMP METABOLIC PANEL 7. Screening for deficiency anemia Z13.0 CBC + DIFF Labs as above. She is up-to-date for mammogram and colonoscopy. Women's health per SURGICAL AIDE. Pastor Lema MD [facility] 12-17-2022 Note HNO ID: [id number] Author: Yulisa Short LPN Service: ? Author Type: LICENSED NURSE Type: Progress Notes Filed: 12/17/2022 10:41 AM Note Text: DUE HEALTH MAINTENANCE HEPATITIS B(1 of 3 - 3-dose series) unsure COVID-19 VACCINE(1) declined PNEUMOCOCCAL(1 - PCV) declined DILATED RETINAL EXAM DIABETIC FOOT EXAM HEPATITIS C SCREENING HIV SCREENING BP CONTROLLED (<130/80) DTAP,TDAP,TD(1 - Tdap) declined PAP TESTING [facility] HPV TESTING SHINGRIX VACCINE(1 of 2) declined Yulisa Short LPN December 17, 2022 9:59 AM [facility] 10-03-[address] Lema regarding patient's recent test results: A1c remains significantly elevated at 8.4. Increase Ozempic to 1 mg weekly. Add Farxiga 10 mg daily. Follow-up in 3 months. I spoke with patient Jose Dixon and advised her of all information and instructions per Dr Lema's note. Patient did voice understanding and is agreeable. Lelia Harp LPN October 03, 2022 9:17 AM documented in this encounter [facility] 10-01-2022 Note HNO ID: [id number] Author: Pastor Lema MD Service: ? Author Type: Physician Type: Progress Notes Filed: 10/01/2022 8:42 AM Note Text: This note was created using [employer]. Subjective Jose Dixon is a 52 year old female. Argelia presents today for follow-up for diabetes. Her last A1c was 10.0 3 months ago. She had stopped taking her Ozempic. She has since restarted it and been on it for 3 months now. Review of Systems Constitutional: Negative. HENT: Negative. Eyes: Negative. Respiratory: Negative. Cardiovascular: Negative. Gastrointestinal: Negative. Endocrine: Negative. Genitourinary: Negative. Musculoskeletal: Negative. Skin: Negative. Allergic/Immunologic: Negative. Neurological: Negative. Hematological: Negative. Psychiatric/Behavioral: Negative. Objective BP 122/82 (BP Site: Left Arm, BP Position: Sitting, BP Cuff Size: Regular Adult) Pulse 78 Temp 36.3 ?C (97.3 ?F) (Temporal) Resp 18 Ht 162.6 cm (5' 4 ) Wt 95.2 kg (209 lb 12.8 oz) SpO2 98% BMI 36.01 kg/m? Physical Exam Vitals reviewed. Constitutional: Appearance: Normal appearance. HENT: Head: Normocephalic and atraumatic. Nose: Nose normal. Eyes: Extraocular Movements: Extraocular movements intact. Pupils: Pupils are equal, round, and reactive to light. Cardiovascular: Rate and Rhythm: Normal rate and regular rhythm. Pulmonary: Effort: Pulmonary effort is normal. Breath sounds: Normal breath sounds. Abdominal: General: Bowel sounds are normal. Palpations: Abdomen is soft. Musculoskeletal: General: Normal range of motion. Cervical back: Normal range of motion and neck supple. Skin: General: Skin is warm and dry. Capillary Refill: Capillary refill takes less than 2 seconds. Neurological: General: No focal deficit present. Mental Status: She is alert and oriented to person, place, and time. Mental status is at baseline. Psychiatric: Mood and Affect: Mood normal. Behavior: Behavior normal. Assessment and Plan Jose was seen today for follow up. Diagnoses and all orders for this visit: Diabetes beginning in adulthood (type 2/adult onset) ([facility]) - HGB A1C; Future Type 2 diabetes mellitus without complication, without long-term current use of insulin ([facility]) - losartan (COZAAR) 50 mg tablet; Take 1 tablet by mouth once daily. - semaglutide (OZEMPIC) 0.25 mg or 0.5 mg(2 mg/1.5 mL) pen; Inject 0.5 mg subcutaneously one time a week. Other orders - metFORMIN ER (GLUCOPHAGE XR) 500 mg 24 hr tablet; Take 2 tablets by mouth once daily. As Directed - tamoxifen (NOLVADEX) 20 mg tablet; Take 1 tablet (20 mg) by mouth once daily. Continue present medications. Check A1c. Titrate Ozempic if A1c remains elevated. [facility] 10-01-2022 Note HNO ID: [id number] Author: Yulisa Short LPN Service: ? Author Type: LICENSED NURSE Type: Progress Notes Filed: 10/01/2022 8:42 AM Note Text: Patient is in office for follow up for diabetes. No complaints or concerns Yulisa Short LPN October 01, 2022 8:15 AM [facility] 10-01-2022 History of Present illness Narrative This note was created using [employer]. Subjective Jose Dixon is a 52 year old female. Argelia presents today for follow-up for diabetes. Her last A1c was 10.0 3 months ago. She had stopped taking her Ozempic. She has since restarted it and been on it for 3 months now. Review of Systems Constitutional: Negative. HENT: Negative. Eyes: Negative. Respiratory: Negative. Cardiovascular: Negative. Gastrointestinal: Negative. Endocrine: Negative. Genitourinary: Negative. Musculoskeletal: Negative. Skin: Negative. Allergic/Immunologic: Negative. Neurological: Negative. Hematological: Negative. Psychiatric/Behavioral: Negative. Objective BP 122/82 (BP Site: Left Arm, BP Position: Sitting, BP Cuff Size: Regular Adult) Pulse 78 Temp 36.3 C (97.3 F) (Temporal) Resp 18 Ht 162.6 cm (5' 4 ) Wt 95.2 kg (209 lb 12.8 oz) SpO2 98% BMI 36.01 kg/m Physical Exam Vitals reviewed. Constitutional: Appearance: Normal appearance. HENT: Head: Normocephalic and atraumatic. Nose: Nose normal. Eyes: Extraocular Movements: Extraocular movements intact. Pupils: Pupils are equal, round, and reactive to light. Cardiovascular: Rate and Rhythm: Normal rate and regular rhythm. Pulmonary: Effort: Pulmonary effort is normal. Breath sounds: Normal breath sounds. Abdominal: General: Bowel sounds are normal. Palpations: Abdomen is soft. Musculoskeletal: General: Normal range of motion. Cervical back: Normal range of motion and neck supple. Skin: General: Skin is warm and dry. Capillary Refill: Capillary refill takes less than 2 seconds. Neurological: General: No focal deficit present. Mental Status: She is alert and oriented to person, place, and time. Mental status is at baseline. Psychiatric: Mood and Affect: Mood normal. Behavior: Behavior normal. Assessment and Plan Jose was seen today for follow up. Diagnoses and all orders for this visit: Diabetes beginning in adulthood (type 2/adult onset) ([facility]) - HGB A1C; Future Type 2 diabetes mellitus without complication, without long-term current use of insulin ([facility]) - losartan (COZAAR) 50 mg tablet; Take 1 tablet by mouth once daily. - semaglutide (OZEMPIC) 0.25 mg or 0.5 mg(2 mg/1.5 mL) pen; Inject 0.5 mg subcutaneously one time a week. Other orders - metFORMIN ER (GLUCOPHAGE XR) 500 mg 24 hr tablet; Take 2 tablets by mouth once daily. As Directed - tamoxifen (NOLVADEX) 20 mg tablet; Take 1 tablet (20 mg) by mouth once daily. Continue present medications. Check A1c. Titrate Ozempic if A1c remains elevated. Patient is in office for follow up for diabetes. No complaints or concerns Yulisa Short LPN October 01, 2022 8:15 AM documented in this encounter [facility] 07-28-2022 Miscellaneous Notes Pharmacy faxed requesting the following refill. Requested Prescriptions Pending Prescriptions Disp Refills omega-3 acid ethyl esters (LOVAZA) 1 gram capsule [Pharmacy Med Name: OMEGA-3 ETHYL ESTERS 1 GM CAP] 120 capsule 2 Sig: TAKE 2 CAPSULES BY MOUTH TWICE A DAY Patient last appointment: 07/01/2022 Patient Phone numbers: [phone] (home) [phone] (work) Request is for script(s) to be escript to pharmacy. Helga Mccord LPN documented in this encounter [facility] 07-01-2022 Miscellaneous Notes Patient notified of information, verbalized understanding Yulisa Short LPN July 01, 2022 1:40 PM Please call and inform patient that her triglycerides were elevated on recent labs and so was her HbA1c at 10.0%. Patient is to make sure that she resumes taking Ozempic as we discussed at her last office visit. Also patient to begin taking omega 3 fish oil for her triglycerides-----script sent to pharmacy. Patient needs to follow up with Dr. Lema in August as currently scheduled regarding these results . documented in this encounter [facility] 05-21-2022 Note HNO ID: [id number] Author: Vivienne Gudino APRN.[employer] OPERATOR [employer]ENDER Service: ? Author Type: Nurse Practitioner Type: Progress Notes Filed: 05/23/2022 9:36 AM Note Text: This note was created using [employer]. Subjective Jose Dixon is a 51 year old female. Patient presents to the office today for a check up for her diabetes. Patient reports that she has been taking all of her medications consistently however she ran out of Ozempic roughly a month ago. Patient is currently not monitoring her glucose levels. Review of Systems Constitutional: Negative. HENT: Negative. Eyes: Negative. Respiratory: Negative. Cardiovascular: Negative. Gastrointestinal: Negative. Endocrine: Negative. Genitourinary: Negative. Musculoskeletal: Negative. Skin: Negative. Allergic/Immunologic: Negative. Neurological: Negative. Hematological: Negative. Psychiatric/Behavioral: Negative. Objective BP 130/84 (BP Site: Left Arm, BP Position: Sitting) Pulse 73 Temp 36.4 ?C (97.5 ?F) (Temporal) Resp 14 Ht 162.6 cm (5' 4 ) Wt 96.1 kg (211 lb 12.8 oz) SpO2 98% BMI 36.36 kg/m? Physical Exam Constitutional: General: She is not in acute distress. Appearance: Normal appearance. She is not ill-appearing, toxic-appearing or diaphoretic. HENT: Head: Normocephalic and atraumatic. Right Ear: Tympanic membrane, ear canal and external ear normal. Left Ear: Tympanic membrane, ear canal and external ear normal. Nose: Nose normal. Mouth/Throat: Mouth: Mucous membranes are moist. Pharynx: Oropharynx is clear. Eyes: Extraocular Movements: Extraocular movements intact. Conjunctiva/sclera: Conjunctivae normal. Pupils: Pupils are equal, round, and reactive to light. Neck: Vascular: No carotid bruit. Cardiovascular: Rate and Rhythm: Normal rate and regular rhythm. Pulses: Normal pulses. Heart sounds: Normal heart sounds. No murmur heard. Pulmonary: Effort: Pulmonary effort is normal. No respiratory distress. Breath sounds: Normal breath sounds. Abdominal: General: Bowel sounds are normal. There is no distension. Palpations: Abdomen is soft. There is no mass. Tenderness: There is no abdominal tenderness. There is no right CVA tenderness, left CVA tenderness, guarding or rebound. Hernia: No hernia is present. Musculoskeletal: General: Normal range of motion. Cervical back: Normal range of motion and neck supple. No rigidity or tenderness. Lymphadenopathy: Cervical: No cervical adenopathy. Skin: General: Skin is warm and dry. Capillary Refill: Capillary refill takes less than 2 seconds. Comments: Patient has a 3 small sebaceous cysts--one on anterior neck 0.5cm by 0.5cm. and 2 on upper back back. 2cm by 2cm sebaceous cyst on mid back, 0.5cm by 0.5cm sebaceous cysts on right upper back. None of these cysts are reddened, tender, or draining-----patient would like them removed. Neurological: General: No focal deficit present. Mental Status: She is alert and oriented to person, place, and time. Psychiatric: Mood and Affect: Mood normal. Behavior: Behavior normal. Thought Content: Thought content normal. Judgment: Judgment normal. Assessment and Plan ASSESSMENT/PLAN: 1. Type 2 diabetes mellitus without complication, without long-term current use of insulin (HCC) - ICD9: 250.00, ICD10: E11.9 (primary diagnosis) The patient is new to me. - Continue current medications - Patient to restart Ozempic---patient given instructions to take .25mg weekly x 4 weeks then increase to 0.5mg injected weekly---patient verbalized understanding - Obtain labs below. - LOSARTAN 50 MG TABLET - SEMAGLUTIDE 0.25 MG OR 0.5 MG (2 MG/1.5 ML) SUBCUTANEOUS PEN INJECTOR - HGB A1C - COMP METABOLIC PANEL - LIPID PANEL BASIC - ALBUMIN RANDOM URINE 2. Sebaceous cyst - ICD9: 706.2, ICD10: L72.3 Refer to dermatology - CONSULT TO DERMATOLOGY Vivienne Gudino APRN.[employer] OPERATOR [employer] TENDER [facility] 05-21-2022 Instructions Vivienne Gudino APRN.ESSENCE - 05/21/2022 10:56 AM EST - Restart Ozempic- Inject 0.25mg weekly x 4 weeks, then increase to 0.5mg injected weekly - Continue all other medications - Complete labs, fast for 12 hrs and complete at earliest convenience - Follow up with in 3 months documented in this encounter [facility] 05-21-2022 History of Present illness Narrative This note was created using [employer]. Subjective Jose Dixon is a 51 year old female. Patient presents to the office today for a check up for her diabetes. Patient reports that she has been taking all of her medications consistently however she ran out of Ozempic roughly a month ago. Patient is currently not monitoring her glucose levels. Review of Systems Constitutional: Negative. HENT: Negative. Eyes: Negative. Respiratory: Negative. Cardiovascular: Negative. Gastrointestinal: Negative. Endocrine: Negative. Genitourinary: Negative. Musculoskeletal: Negative. Skin: Negative. Allergic/Immunologic: Negative. Neurological: Negative. Hematological: Negative. Psychiatric/Behavioral: Negative. Objective BP 130/84 (BP Site: Left Arm, BP Position: Sitting) Pulse 73 Temp 36.4 C (97.5 F) (Temporal) Resp 14 Ht 162.6 cm (5' 4 ) Wt 96.1 kg (211 lb 12.8 oz) SpO2 98% BMI 36.36 kg/m Physical Exam Constitutional: General: She is not in acute distress. Appearance: Normal appearance. She is not ill-appearing, toxic-appearing or diaphoretic. HENT: Head: Normocephalic and atraumatic. Right Ear: Tympanic membrane, ear canal and external ear normal. Left Ear: Tympanic membrane, ear canal and external ear normal. Nose: Nose normal. Mouth/Throat: Mouth: Mucous membranes are moist. Pharynx: Oropharynx is clear. Eyes: Extraocular Movements: Extraocular movements intact. Conjunctiva/sclera: Conjunctivae normal. Pupils: Pupils are equal, round, and reactive to light. Neck: Vascular: No carotid bruit. Cardiovascular: Rate and Rhythm: Normal rate and regular rhythm. Pulses: Normal pulses. Heart sounds: Normal heart sounds. No murmur heard. Pulmonary: Effort: Pulmonary effort is normal. No respiratory distress. Breath sounds: Normal breath sounds. Abdominal: General: Bowel sounds are normal. There is no distension. Palpations: Abdomen is soft. There is no mass. Tenderness: There is no abdominal tenderness. There is no right CVA tenderness, left CVA tenderness, guarding or rebound. Hernia: No hernia is present. Musculoskeletal: General: Normal range of motion. Cervical back: Normal range of motion and neck supple. No rigidity or tenderness. Lymphadenopathy: Cervical: No cervical adenopathy. Skin: General: Skin is warm and dry. Capillary Refill: Capillary refill takes less than 2 seconds. Comments: Patient has a 3 small sebaceous cysts--one on anterior neck 0.5cm by 0.5cm. and 2 on upper back back. 2cm by 2cm sebaceous cyst on mid back, 0.5cm by 0.5cm sebaceous cysts on right upper back. None of these cysts are reddened, tender, or draining-----patient would like them removed. Neurological: General: No focal deficit present. Mental Status: She is alert and oriented to person, place, and time. Psychiatric: Mood and Affect: Mood normal. Behavior: Behavior normal. Thought Content: Thought content normal. Judgment: Judgment normal. Assessment and Plan ASSESSMENT/PLAN: 1. Type 2 diabetes mellitus without complication, without long-term current use of insulin ([facility]) - ICD9: 250.00, ICD10: E11.9 (primary diagnosis) The patient is new to me. - Continue current medications - Patient to restart Ozempic---patient given instructions to take .25mg weekly x 4 weeks then increase to 0.5mg injected weekly---patient verbalized understanding - Obtain labs below. - LOSARTAN 50 MG TABLET - SEMAGLUTIDE 0.25 MG OR 0.5 MG (2 MG/1.5 ML) SUBCUTANEOUS PEN INJECTOR - HGB A1C - COMP METABOLIC PANEL - LIPID PANEL BASIC - ALBUMIN RANDOM URINE 2. Sebaceous cyst - ICD9: 706.2, ICD10: L72.3 Refer to dermatology - CONSULT TO DERMATOLOGY Vivienne Gudino APRN.[employer] OPERATOR [employer] TENDER documented in this encounter [facility] 02-17-2022 Miscellaneous Notes Please enter pharmacy Patient called into office. Stated she has a vaginal yeast infection. She used a Monistat 3 day over the counter vaginal insert. Yeast infection had relief then came back. Asking if you could possibly prescribe something or any recommendations. Pharmacy [facility] Nayely Short LPN February 13, 2022 12:00 PM documented in this encounter [facility] Diagnosis Hypertriglyceridemia- Primary Pure hyperglyceridemia [facility] Diagnosis Hypertriglyceridemia Pure hyperglyceridemia [facility] Diagnosis Diabetes beginning in adulthood (type 2/adult onset) (HCC)- Primary Type 2 diabetes mellitus without complication, without long-term current use of insulin (HCC) [facility] Diagnosis Sebaceous cyst- Primary Abscess Cellulitis and abscess of unspecified site documented in this encounter [facility] Summary Purpose Family History No Family History Records FoundNo Family History Records FoundNo Family History Records FoundNo Family History Records Found Advance Directives No Advanced Directives Records FoundNo Advanced Directives Records FoundNo Advanced Directives Records FoundNo Advanced Directives Records Found Reason for Referral Specialty Diagnoses / Procedures Referred By Contac t Referred To Contact Dermatology Diagnoses Sebaceous cyst Procedures CONSULT TO DERMATOLOGY OFFICE/OUTPATIENT [facility] 60-74 MINUTES Vivienne Gudino APRN.[employer] OPERATOR AND TENDER [address] [place] [address] Referral ID Status Reason Start Date Expiration Date Visits Requested Visits Authorized [id number] Pending Review PCP Requested Referral 05/21/2023 1 1 Specialty Diagnoses / Procedures Referred By Contac t Referred To Contact Plastic Surgery Diagnoses Sebaceous cyst Procedures CONSULT TO PLASTIC SURGERY OFFICE/OUTPATIENT [facility] 60-74 MINUTES Pastor Lema MD [address] [place] [address] Referral ID Status Reason Start Date Expiration Date Visits Requested Visits Authorized [id number] Pending Review PCP Requested Referral 01/26/2023 01/26/2024 1 1 Additional Source Comments INFORMATION SOURCE (unrecogn ized section and content) DATE CREATED AUTHOR AUTHOR'S ORGANIZ ATION 04/13/2019 [facility] Louise Lynn DATE CREATED AUTHOR AUTHOR'S ORGANIZ ATION 01/26/2023 [facility] DATE CREATED AUTHOR AUTHOR'S ORGANIZ ATION 07/29/2023 [facility] Source Comments (unrecognize d section and content) In the event this informatio n is protected by the Federal Confidentiality of Alcohol and Drug Abuse Patient Records regulations: The Federal rules restrict any use of the information to criminally investigate or prosecute any alcohol or drug abuse patient.[facility] the event this information is protected by the Federal Confidentiality of Alcohol and Drug Abuse Patient Records regulations: The Federal rules restrict any use of the information to criminally investigate or prosecute any alcohol or drug abuse patient.[facility] the event this information is protected by the Federal Confidentiality of Alcohol and Drug Abuse Patient Records regulations: The Federal rules restrict any use of the information to criminally investigate or prosecute any alcohol or drug abuse patient.[facility] the event this information is protected by the Federal Confidentiality of Alcohol and Drug Abuse Patient Records regulations: The Federal rules restrict any use of the information to criminally investigate or prosecute any alcohol or drug abuse patient.[facility] the event this information is protected by the Federal Confidentiality of Alcohol and Drug Abuse Patient Records regulations: The Federal rules restrict any use of the information to criminally investigate or prosecute any alcohol or drug abuse patient.[facility] the event this information is protected by the Federal Confidentiality of Alcohol and Drug Abuse Patient Records regulations: The Federal rules restrict any use of the information to criminally investigate or prosecute any alcohol or drug abuse patient.[facility] the event this information is protected by the Federal Confidentiality of Alcohol and Drug Abuse Patient Records regulations: The Federal rules restrict any use of the information to criminally investigate or prosecute any alcohol or drug abuse patient.[facility] the event this information is protected by the Federal Confidentiality of Alcohol and Drug Abuse Patient Records regulations: The Federal rules restrict any use of the information to criminally investigate or prosecute any alcohol or drug abuse patient.[facility] System[facility] the event this information is protected by the Federal Confidentiality of Alcohol and Drug Abuse Patient Records regulations: The Federal rules restrict any use of the information to criminally investigate or prosecute any alcohol or drug abuse patient.[facility] the event this information is protected by the Federal Confidentiality of Alcohol and Drug Abuse Patient Records regulations: The Federal rules restrict any use of the information to criminally investigate or prosecute any alcohol or drug abuse patient.[facility] System[facility] the event this information is protected by the Federal Confidentiality of Alcohol and Drug Abuse Patient Records regulations: The Federal rules restrict any use of the information to criminally investigate or prosecute any alcohol or drug abuse [facility] the event this information is protected by the Federal Confidentiality of Alcohol and Drug Abuse Patient Records regulations: The Federal rules restrict any use of the information to criminally investigate or prosecute any alcohol or drug abuse patient.[facility] Reason for Visit (unrecogniz ed section and content) Reason Comments Follow Up Diabetes and 3 skin lesions/lumps that need checked (one on her neck in the front and 2 on her back) Reason Comments Results Reason Comments Refill Request Reason Comments Follow Up Reason Comments Orders Reason Comments Painful Lump on the Back of Her Neck Reason Comments Patient Question yeast infection Care Teams (unrecognized sec tion and content) [employer] Relationship Specialty Start Date End Date Pcp, No PCP - General 01/18/22 08/05/22 [employer] Relationship Specialty Start Date End Date Pcp, No PCP - General 01/18/22 08/05/22 [employer] Relationship Specialty Start Date End Date Pcp, No PCP - General 01/18/22 08/05/22 [employer] Relationship Specialty Start Date End Date Pastor Lema MD [address] [place], [place] [id number] PCP - General Family Medicine 10/29/22 [employer] Relationship Specialty Start Date End Date Pastor Lema MD [address] [place], [place] [phone] PCP - General Family Medicine 10/29/22 [employer] Relationship Specialty Start Date End Date Pastor Lema MD [address] [place], [place] [phone] PCP - General Family Medicine 10/29/22 Chidi Thornton MD [address] [place] [address] General Surgery 12/10/22 [facility] [address] [place] [address] Hematology/Oncology 12/10/22 Breanna Ferrera [address] [place] [address] CUSTOMER DATA TECHNICIAN 01/23/23 Stephanie Dwyer [address] [place] [address] Vascular Medicine 01/23/23 [employer] Relationship Specialty Start Date End Date Pastor Lema MD [address] [place] [address] PCP - General Family Medicine 10/29/22 Chidi Thornton MD [address] [place] [address] General Surgery 12/10/22 Marsha Frausto [address] [place] [address] Hematology/Oncology 12/10/22 Breanna Ferrera [address] [place] [address] CUSTOMER DATA TECHNICIAN 01/23/23 Stephanie Dwyer [address] [place] [address] Vascular Medicine 01/23/23 [employer]ter Relationship Specialty Start Date End Date Pastor Lema MD [address] [place] [address] PCP - General Family Medicine 10/29/22 Chidi Thornton MD [address] [place] [id number] General Surgery 12/10/22 Marsha Frausto [address] [place], [place] [address] Hematology/Oncology 12/10/22 Breanna Ferrera [address] [place] [address] CUSTOMER DATA TECHNICIAN 01/23/23 Stephanie Dwyer [address] [place] [address] Vascular Medicine 01/23/23 FOR RECORDS PERTAINING TO PATIENTS WHO ARE OR HAVE BEEN ENROLLED IN A CHEMICAL DEPENDENCY/SUBSTANCEABUSE PROGRAM, SOME INFORMATION MAY BE OMITTED. This clinical summary was aggregated from multiple sources. Caution should be exercised in using it in the provision of clinical care. This summary normalizes information from multiple sources, and as a consequence, information in this document may materially change the coding, format and clinical context of patient data. In addition, data may be omitted in some cases. CLINICAL DECISIONS SHOULD BE BASED ON THE PRIMARY CLINICAL RECORDS. [facility] [facility]. provides no warranty or guarantee of the accuracy or completeness of information in this document.
== END | disposition home or self-care (01) ==
LOC: LABSPEC 15:23
PROVIDERS: Referring Provider Nurse Practitioner Women's Health; Visit Provider Nurse Practitioner Women's Health
DX: N89.8 Other specified noninflammatory disorders of vagina (principal)
CPT/HCPCS: 87070; 87205

== ENCOUNTER → 2023-08-08 | Outpatient (CLI) | payer OTHER, SELFPAY ==
--- OUTSIDE RECORDS SUMMARY | 2023-08-08 08:06 | XMS RPT_ITS | CCD ---
Author Name Unknown Address [address] [place] [address] Organization [facility] Care Team Providers Care Pet Care Associate Name Role Phone Ignacio Merrill MD Unavailable NIKI AVILA Unavailable Unavailable NIKI AVILA Unavailable Unavailable Pcp, No Primary Care Provider Unavailabl e Unavailable Primary Care Provider UnavailPastor Najera MD Primary Care Provider VIVIENNE GUDINO Attending Unavailable PASTOR LEMA Attending UnavailPASTOR Aggarwal Referring Unavailab PASTOR Santizo Attending UnavailPASTOR Aggarwal Primary Care Unavailab PASTOR [...] 162.6 cm Pastor Lema MD Work Phone: [facility] 01-26-2023 08:06-0400 Body temperature 96.91 [degF] Pastor Lema MD Work Phone: [facility] 01-26-2023 08:06-0400 Body weight 90.27 kg Pastor Lema MD Work Phone: [facility] 01-26-2023 08:06-0400 Diastolic blood pressure 78 mm[Hg] Pastor Lema MD Work Phone: [facility] 01-26-2023 08:06-0400 Heart rate 85 /min Pastor Lema MD Work Phone: [facility] 01-26-2023 08:06-0400 Respiratory rate 16 /min Pastor Lema MD Work Phone: [facility] 01-26-2023 08:06-0400 SaO2% (BldA) [Mass fraction] 98 % Pastor Lema MD Work Phone: [facility] 01-26-2023 08:06-0400 Systolic blood pressure 120 mm[Hg] Pastor Lema MD Work Phone: [facility] 10-01-2022 08:18-0400 Body height 162.6 cm Pastor Lema MD Work Phone: [facility] 10-01-2022 08:18-0400 Body temperature 97.3 [degF] Pastor Lema MD Work Phone: [facility] 10-01-2022 08:18-0400 Body weight 95.17 kg Pastor Lema MD Work Phone: [facility] 10-01-2022 08:18-0400 Diastolic blood pressure 82 mm[Hg] Pastor Lema MD Work Phone: [facility] 10-01-2022 08:18-0400 Heart rate 78 /min Pastor Lema MD Work Phone: [facility] 10-01-2022 08:18-0400 Respiratory rate 18 /min Pastor Lema MD Work Phone: [facility] 10-01-2022 08:18-0400 SaO2% (BldA) [Mass fraction] 98 % Pastor Lema MD Work Phone: [facility] 10-01-2022 08:18-0400 Systolic blood pressure 122 mm[Hg] Pastor Lema MD Work Phone: [facility] 05-21-2022 10:33-0500 Body height 162.6 cm Vivienne Gudino HARD TILE SETTER.TELEPHONE STATION REPAIRER Work Phone: [facility] 05-21-2022 10:33-0500 Body temperature 97.5 [degF] Vivienne Gudino HARD TILE SETTER.TELEPHONE STATION REPAIRER Work Phone: [facility] 05-21-2022 10:33-0500 Body weight 96.07 kg Vivienne Gudino HARD TILE SETTER.TELEPHONE STATION REPAIRER Work Phone: [facility] 05-21-2022 10:33-0500 Diastolic blood pressure 84 mm[Hg] Vivienne Gudino HARD TILE SETTER.TELEPHONE STATION REPAIRER Work Phone: [facility] 05-21-2022 10:33-0500 Heart rate 73 /min Vivienne Gudino HARD TILE SETTER.TELEPHONE STATION REPAIRER Work Phone: [facility] 05-21-2022 10:33-0500 Respiratory rate 14 /min Vivienne Gudino HARD TILE SETTER.TELEPHONE STATION REPAIRER Work Phone: [facility] 05-21-2022 10:33-0500 SaO2% (BldA) [Mass fraction] 98 % Vivienne Gudino APRN.TELEPHONE STATION REPAIRER Work Phone: [facility] 05-21-2022 10:33-0500 Systolic blood pressure 130 mm[Hg] Vivienne Gudino APRN.TELEPHONE STATION REPAIRER Work Phone: [facility] 04-02-2016 09:16-0400 BMI (Body Mass Index) 37.04 kg/m2 Ignacio [facility]ler [facility] Work Phone: 04-02-2016 09:16-0400 Body Temperature 99.4 [degF] Ignacio Merrill MD [facility] Work Phone: 04-02-2016 09:16-0400 BP Diastolic 83 mm[Hg] Ignacio Merrill MD [facility] Work Phone: 04-02-2016 09:16-0400 BP Systolic 115 mm[Hg] Ignacio Merrill MD [facility] Work Phone: 04-02-2016 09:16-0400 BSA (Body Surface Area) 2.15 m2 Ignacio Merrill MD [facility] Work Phone: 04-02-2016 09:16-0400 Height 168.91 cm Ignacio Merrill MD [facility] Work Phone: 04-02-2016 09:16-0400 Pulse (Heart Rate) 78 /min Ignacio [facility]ler [facility] Work Phone: 04-02-2016 09:16-0400 Respiratory Rate 16 /min [facility] Work Phone: 04-02-2016 09:16-0400 Weight 105.69 kg Ignacio Merrill MD [facility] Work Phone: Encounters Encounter Date Encounter Type Care Provider Facility Start: 07-28-2023 End: 07-28-2023 ambulatory PASTOR LEMA Facility:[facility] Start: 02-05-2023 Telephone encounter Pastor Lema MD Work Phone: [facility] Procedures Date Procedure Procedure Detail Performing Clinician [...] Author Start: 04-07-2024 LIPID SCREEN LIPID SCREEN [facility] Start: 01-27-2024 ANNUAL PCP TEAM VENTILATING ENGINEER SHANE DISEASE VISIT ANNUAL PCP TEAM CHRONIC DISEASE VISIT [facility] Start: 01-27-2024 BP CONTROLLED (<130/80) BP CONTROLLE D (<130/80) [facility] Start: 10-02-2023 ANNUAL PCP TEAM VENTILATING ENGINEER SHANE DISEASE VISIT ANNUAL PCP TEAM CHRONIC DISEASE VISIT [facility] Start: 06-27-2023 Hepatitis B screening URINE ALBUMIN:CREATININE RATIO [facility] Start: 06-27-2023 Hepatitis B surface antibody level LDL CHOLESTEROL [facility] Start: 05-21-2023 ANNUAL PCP TEAM VENTILATING ENGINEER SHANE DISEASE VISIT ANNUAL PCP TEAM CHRONIC DISEASE VISIT [facility] Start: 04-07-2023 Colonoscopy COLONOSCOPY [facility] Start: 04-07-2023 COLORECTAL CANCER SCREENING COLORECTAL CANCER SCREENING [facility] Start: 03-06-2023 Influenza vaccination C [facility] Start: 01-01-2023 Hemoglobin A1c/Hemoglobin.total in Blood HBA1C [facility] Start: 10-01-2022 End: 12-01-2022 Hemoglobin A1c in Blood [facility] Work Phone: Payers Date Payer Category Payer Private Health Insurance [facility] [id number] 2021-Present [phone] [address] [place] [address] [facility] [id number] 2021 Unknown [id number] Social History Date Type Detail Facility Start: 09-14-2013 End: 05-21-2022 Tobacco smoking status NHIS Never smoked tobacco [facility] Start: 09-14-2013 End: 01-26-2023 Alcohol intake Current drinker of alcohol (finding) [facility] Start: 09-14-2013 History SDOH Alcohol Comment socially [facility] Start: 1970 Sex Assigned At Not on file C [facility] Start: 05-21-2022 Tobacco use and exposure Smoke less tobacco non-user [facility] Start: 05-21-2022 Education 17 [facility] Start: 05-11-2022 End: 05-21-2022 Exposure to SARS-CoV-2 (event) Not sure [facility] Start: 12-17-2022 End: 01-26-2023 History of Social function [facility] Start: 12-17-2022 End: 01-26-2023 Social connection and isolation panel [facility] Do you belong to any clubs or organizations such as hindu groups, unions, fraternal or athletic groups, or school groups? No [facility] Are you now , , , , never or living with a partner? [facility] How often to you hav e a drink containing alcohol? Monthly or less [facility] How many standard dr inks containing alcohol do you have on a typical day? 1 or 2 [facility] How often do you hav e 6 or more drinks on 1 occasion? Never [facility] How hard is it for y ou to pay for the very basics like food, housing, medical care, and heating Not hard at all [facility] Do you feel stress - tense, restless, nervous, or anxious, or unable to sleep at night because your mind is troubled all the time - these days [OSQ] Only a little [facility] (I/We) worried derrick er (my/our) food would run out before (I/we) got money to buy more. Never true [facility] Start: 05-21-2022 Gender identity Identifies as female gender (finding) [facility] Clinical Notes 02-17-2022 to 07-28-2023 Telephone Encounter - IqugmiutBeto bustamantewnyayden Campos LPN - 02/05/2023 1:07 PM EDTTelephone Encounter - Pattie Benavides APRN.CNP - 02/05/2023 11:00 AM Pastor Fernandes MD - 01/26/2023 8:27 AM EDT Note Date & Type Note Facility 07-28-2023 Note HNO ID: [id number] Author: JOANN ARROYO RT(R) Service: ? Author Type: Lunch Truck Operator Type: Progress Notes Filed: 07/28/2023 10:50 Note [...] RT Pino(R) July 28, 2023 10:50 AM [facility] 07-28-2023 Note HNO ID: [id number] Author: LUCRECIA CORONADO PA Service: ? Author Type: Physician Market President Type: Progress Notes Filed: 07/28/2023 11:09 Note [...] 02/08. (Patient not taking: Reported on 07/28/2023) [id number] OIL ORAL Take by mouth. (Patient not [...] detail warranting prompt ER evaluation. DAPHNE Dsouza [facility] 02-05-2023 Miscellaneous Notes I notified patient Jose that Pattie sent a prescription of Diflucan for her to Health system. Patient has taken this medication in the past so she is familiar with the dosing instructions. Jose is very thankful for the Rx. Lelia Harp LPN February 05, 2023 1:08 PM Rx for diflucan sent to pharmacy. Jose Dixon called today. : 1970 Allergies: Patient has no known allergies. (home) [phone] (cell) Reason for call: Patient called because [...] N[place] Harp LPN documented in this encounter [facility] 01-26-2023 Note HNO ID: [id number] Author: Pastor Lema MD Service: ? Author Type: Physician Type: Progress Notes Filed: 01/26/2023 10:13 AM Note Text: This note was created using [employer]. Subjective Jose Dixon is a 52 year [...] excision of the cyst. Pastor Lema MD [facility] 01-26-2023 Note HNO ID: [id number] Author: Marine Snyder LPN Service: ? Author [...] Snyder LPN January 26, 2023 8:[address] [facility] 01-26-2023 History of Present illness Narrative This note was created using [employer]. Subjective Jose Dixon is a 52 year [...] 2023 8:11 AM documented in this encounter [facility] 12-17-2022 Note HNO ID: [id number] Author: Pastor Lema MD Service: ? Author Type: Physician Type: Progress Notes Filed: 12/17/2022 10:41 AM Note Text: This note was created using [employer]. Subjective Jose Dixon is a 52 year [...] for mammogram and colonoscopy. Women's health per WOOD PATTERNMAKER. Pastor Lema MD [facility] 12-17-2022 Note HNO ID: [id number] Author: Yulisa Short LPN Service: ? Author Type: LICENSED NURSE Type: Progress Notes Filed: 12/17/2022 10:41 AM Note Text: DUE HEALTH MAINTENANCE HEPATITIS B(1 of 3 - 3-dose series) unsure COVID-19 VACCINE(1) declined PNEUMOCOCCAL(1 - PCV) declined DILATED RETINAL EXAM DIABETIC FOOT EXAM HEPATITIS C SCREENING HIV SCREENING BP CONTROLLED (<130/80) DTAP,TDAP,TD(1 - Tdap) declined PAP TESTING [facility] HPV TESTING SHINGRIX VACCINE(1 of 2) declined Yulisa Short LPN December 17, 2022 9:[address] [facility] 10-03-[address] [...] 2022 9:17 AM documented in this encounter [facility] 10-01-2022 Note HNO ID: [id number] Author: Pastor Lema MD Service: ? Author Type: Physician Type: Progress Notes Filed: 10/01/2022 8:42 AM Note Text: This note was created using [employer]. Subjective Jose Dixon is a 52 year [...] Diabetes beginning in adulthood (type 2/adult onset) ([facility]) - HGB A1C; Future Type 2 diabetes mellitus without complication, without long-term current use of insulin ([facility]) - losartan (COZAAR) 50 mg tablet; Take [...] A1c. Titrate Ozempic if A1c remains elevated. [facility] 10-01-2022 Note HNO ID: [id number] Author: Yulisa Short LPN Service: ? Author Type: LICENSED NURSE Type: Progress Notes Filed: 10/01/2022 8:42 AM Note Text: Patient is in office for follow up for diabetes. No complaints or concerns Yulisa Short LPN October 01, 2022 8:[address] [facility] 10-01-2022 History of Present illness Narrative This note was created using [employer]. Subjective Jose Dixon is a 52 year [...] Diabetes beginning in adulthood (type 2/adult onset) ([facility]) - HGB A1C; Future Type 2 diabetes mellitus without complication, without long-term current use of insulin ([facility]) - losartan (COZAAR) 50 mg tablet; Take [...] 2022 8:15 AM documented in this encounter [facility] 07-28-2022 Miscellaneous Notes Pharmacy faxed requesting the following refill. Requested Prescriptions Pending Prescriptions Disp Refills omega-3 acid ethyl esters (LOVAZA) 1 gram capsule [Pharmacy Med Name: OMEGA-3 ETHYL ESTERS 1 GM CAP] 120 capsule 2 Sig: TAKE 2 CAPSULES BY MOUTH TWICE A DAY Patient last appointment: 07/01/2022 Patient Phone numbers: [phone] (home) [phone] (work) Request is for script(s) to be escript to pharmacy. Helga Mccord LPN documented in this encounter [facility] 07-01-2022 Miscellaneous Notes Patient notified of information, [...] these results . documented in this encounter [facility] 05-21-2022 Note HNO ID: [id number] Author: Vivienne Gudino APRN.TELEPHONE STATION REPAIRER Service: ? Author Type: Nurse Practitioner Type: Progress Notes Filed: 05/23/2022 9:36 AM Note Text: This note was created using [employer]. Subjective Jose Dixon is a 51 year [...] dermatology - CONSULT TO DERMATOLOGY Vivienne Gudino APRN.TELEPHONE STATION REPAIRER [facility] 05-21-2022 Instructions Vivienne Gudino APRN.ESSENCE - 05/21/2022 10:56 AM EST - Restart Ozempic- Inject 0.25mg weekly x 4 weeks, then increase to 0.5mg injected weekly - Continue all other medications - Complete labs, fast for 12 hrs and complete at earliest convenience - Follow up with in 3 months documented in this encounter [facility] 05-21-2022 History of Present illness Narrative This note was created using [employer]. Subjective Jose Dixon is a 51 year [...] complication, without long-term current use of insulin ([facility]) - ICD9: 250.00, ICD10: E11.9 (primary diagnosis) [...] dermatology - CONSULT TO DERMATOLOGY Vivienne Gudino APRN.TELEPHONE STATION REPAIRER documented in this encounter [facility] 02-17-2022 Miscellaneous Notes Please enter pharmacy Patient called into office. Stated she has a vaginal yeast infection. She used a Monistat 3 day over the counter vaginal insert. Yeast infection had relief then came back. Asking if you could possibly prescribe something or any recommendations. Pharmacy [facility] Nayely Short LPN February 13, 2022 12:00 PM documented in this encounter [facility] Diagnosis Hypertriglyceridemia- Primary Pure hyperglyceridemia [facility] Diagnosis Hypertriglyceridemia Pure hyperglyceridemia [facility]* Diagnosis Diabetes beginning in adulthood (type 2/adult onset) (H[facility])- Primary Type 2 diabetes mellitus without complication, without long-term current use of insulin ([facility]) [facility] Diagnosis Sebaceous cyst- Primary Abscess Cellulitis and abscess of unspecified site documented in this encounter [facility] Summary Purpose Family History No Family History Records FoundNo Family History Records FoundNo Family History Records FoundNo Family History Records Found Advance Directives No Advanced Directives Records FoundNo Advanced Directives Records FoundNo Advanced Directives Records FoundNo Advanced Directives Records Found Reason for Referral Specialty Diagnoses / Procedures Referred By Contac t Referred To Contact Dermatology Diagnoses Sebaceous cyst Procedures CONSULT TO DERMATOLOGY OFFICE/OUTPATIENT [facility] 60-74 MINUTES Vivienne Gudino APRN.TELEPHONE STATION REPAIRER [address] [place] [address] Referral ID Status Reason Start Date Expiration Date Visits Requested Visits Authorized [id number] Pending Review PCP Requested Referral 05/21/2023 1 1 Specialty Diagnoses / Procedures Referred By Contac t Referred To Contact Plastic Surgery Diagnoses Sebaceous cyst Procedures CONSULT TO PLASTIC SURGERY OFFICE/OUTPATIENT [facility] 60-74 MINUTES Pastor Lema MD [address] [place] [address] Referral ID Status Reason Start Date Expiration Date Visits Requested Visits Authorized [id number] Pending Review PCP Requested Referral 01/26/2023 01/26/2024 1 1 Additional Source Comments INFORMATION SOURCE (unrecogn ized section and content) DATE CREATED AUTHOR AUTHOR'S ORGANIZ ATION 04/13/2019 [facility] Louise Lynn DATE CREATED AUTHOR AUTHOR'S ORGANIZ ATION 01/26/2023 [facility] Ce [facility]ter DATE CREATED AUTHOR AUTHOR'S ORGANIZ ATION 07/29/2023 [facility] Source Comments (unrecognize d section and content) In the event this informatio n is protected by the Federal Confidentiality of Alcohol and Drug Abuse Patient Records regulations: The Federal rules restrict any use of the information to criminally investigate or prosecute any alcohol or drug abuse patient.[facility] the event this information is protected by the Federal Confidentiality of Alcohol and Drug Abuse Patient Records regulations: The Federal rules restrict any use of the information to criminally investigate or prosecute any alcohol or drug abuse patient.[facility] the event this information is protected by the Federal Confidentiality of Alcohol and Drug Abuse Patient Records regulations: The Federal rules restrict any use of the information to criminally investigate or prosecute any alcohol or drug abuse patient.[facility] the event this information is protected by the Federal Confidentiality of Alcohol and Drug Abuse Patient Records regulations: The Federal rules restrict any use of the information to criminally investigate or prosecute any alcohol or drug abuse patient.[facility] the event this information is protected by the Federal Confidentiality of Alcohol and Drug Abuse Patient Records regulations: The Federal rules restrict any use of the information to criminally investigate or prosecute any alcohol or drug abuse patient.[facility] the event this information is protected by the Federal Confidentiality of Alcohol and Drug Abuse Patient Records regulations: The Federal rules restrict any use of the information to criminally investigate or prosecute any alcohol or drug abuse patient.[facility]In the event this information is protected by the Federal Confidentiality of Alcohol and Drug Abuse Patient Records regulations: The Federal rules restrict any use of the information to criminally investigate or prosecute any alcohol or drug abuse patient.[facility] the event this information is protected by the Federal Confidentiality of Alcohol and Drug Abuse Patient Records regulations: The Federal rules restrict any use of the information to criminally investigate or prosecute any alcohol or drug abuse patient.[facility]In the event this information is protected by the Federal Confidentiality of Alcohol and Drug Abuse Patient Records regulations: The Federal rules restrict any use of the information to criminally investigate or prosecute any alcohol or drug abuse patient.[facility]In the event this information is protected by the Federal Confidentiality of Alcohol and Drug Abuse Patient Records regulations: The Federal rules restrict any use of the information to criminally investigate or prosecute any alcohol or drug abuse patient.[facility]In the event this information is protected by the Federal Confidentiality of Alcohol and Drug Abuse Patient Records regulations: The Federal rules restrict any use of the information to criminally investigate or prosecute any alcohol or drug abuse patient.[facility]In the event this information is protected by the Federal Confidentiality of Alcohol and Drug Abuse Patient Records regulations: The Federal rules restrict any use of the information to criminally investigate or prosecute any alcohol or drug abuse patient.[facility] Reason for Visit (unrecogniz ed section and [...] Care Teams (unrecognized sec tion and content) Pet Care Associate Relationship Specialty Start Date End Date Pcp, No PCP - General 01/18/22 08/05/22 Pet Care Associate Relationship Specialty Start Date End Date Pcp, No PCP - General 01/18/22 08/05/22 Pet Care Associate Relationship Specialty Start Date End Date Pcp, No PCP - General 01/18/22 08/05/22 Pet Care Associate Relationship Specialty Start Date End Date Pastor Lema MD [address] [place], [place] [id number] PCP - General Family Medicine 10/29/22 Pet Care Associate Relationship Specialty Start Date End Date Pastor Lema MD [address] [place], [place] [id number] [phone] PCP - General Family Medicine 10/29/22 Pet Care Associate Relationship Specialty Start Date End Date Pastor Lema MD [address] [place], [place] [id number] PCP - General Family Medicine 10/29/22 Chidi Thornton MD [address] [place] [address] General Surgery 12/10/22 [facility] [address] [place] [address] Hematology/Oncology 12/10/22 Breanna Ferrera [address] [place] [address] [facility] 01/23/23 Stephanie Dwyer [address] [place] [address] Vascular Medicine 01/23/23 Pet Care Associate Relationship Specialty Start Date End Date Pastor Lema MD [address] [place] [address] PCP - General Family Medicine 10/29/22 Chidi Thornton MD [address] [place] [address] General Surgery 12/10/22 Marsha Frausto [address] [place] [address] Hematology/Oncology 12/10/22 Breanna Ferrera [address] [place] [address] [facility] 01/23/23 Stephanie Dwyer [address] [place] [address] Vascular Medicine 01/23/23 Pet Care Associate Relationship Specialty Start Date End Date Pastor Lema MD [address] [place] [address] PCP - General Family Medicine 10/29/22 Chidi Thornton MD [address] [place], [place] [id number] General Surgery 12/10/22 Marsha Frausto [address] [place], [place] [address] Hematology/Oncology 12/10/22 Breanna Ferrera [address] [place] [address] [facility] 01/23/23 Stephanie Dwyer [address] [place] [address] Vascular Medicine 01/23/23 FOR RECORDS [...] BE BASED ON THE PRIMARY CLINICAL RECORDS. [facility]. provides no warranty or guarantee of the accuracy or completeness of information in this document.
[2023-08-08 11:10] LABS: Hemoglobin A1c 6.6 % (3.8-5.6)
== END | disposition home or self-care (01) ==
LOC: LAB 08:03
PROVIDERS: PCP Family Medicine; Referring Provider Obstetrics & Gynecology; Visit Provider Obstetrics & Gynecology
DX: E11.9 Type 2 diabetes mellitus without complications (principal)
CPT/HCPCS: 36415; 83036

== ENCOUNTER 2023-08-25 07:42 | Day surgery (SDC) | payer OTHER, SELFPAY ==
--- NOTE | 2023-08-17 09:03 | EKG12_ITS ---
Test Reason : PREOP Blood Pressure : / mmHG Vent. Rate : 064 BPM Atrial Rate : 064 BPM P-R Int : 182 ms QRS Dur : 082 ms QT Int : 416 ms P-R-T Axes : 004 025 023 degrees QTc Int : 429 ms Normal sinus rhythm Normal ECG Confirmed by Zhao Marquez ([id number]), marketing editor BRODIE JAMES ([id number]) on 08/18/2023 9:17:20 AM Referred By: Breanna Ferrera Confirmed By:Zhao Marquez
[2023-08-25] VITALS (8 sets, daily range): BP systolic 119–142; BP diastolic 81–100; PULSE 56–74; RESP 18; TEMP 36.2–37.1; O2SAT 95–99; BMI 33.4
--- OUTSIDE RECORDS SUMMARY | 2023-08-25 07:46 | XMS RPT_ITS | CCD ---
Author Name Unknown Address [address] [place] [address] Organization [facility] Care Team Providers Care Materials Associate Name Role Phone Ignacio Merrill MD [...] 162.6 cm Pastor Lema MD Work Phone: [facility] 01-26-2023 08:06-0400 Body temperature 96.91 [degF] Pastor Lema MD Work Phone: [facility] 01-26-2023 08:06-0400 Body weight 90.27 kg Pastor Lema MD Work Phone: [facility] 01-26-2023 08:06-0400 Diastolic blood pressure 78 mm[Hg] Pastor Lema MD Work Phone: [facility] 01-26-2023 08:06-0400 Heart rate 85 /min Pastor Lema MD Work Phone: [facility] 01-26-2023 08:06-0400 Respiratory rate 16 /min Pastor Lema MD Work Phone: [facility] 01-26-2023 08:06-0400 SaO2% (BldA) [Mass fraction] 98 % Pastor Lema MD Work Phone: [facility] 01-26-2023 08:06-0400 Systolic blood pressure 120 mm[Hg] Pastor Lema MD Work Phone: [facility] 10-01-2022 08:18-0400 Body height 162.6 cm Pastor Lema MD Work Phone: [facility] 10-01-2022 08:18-0400 Body temperature 97.3 [degF] Pastor Lema MD Work Phone: [facility] 10-01-2022 08:18-0400 Body weight 95.17 kg Pastor Lema MD Work Phone: [facility] 10-01-2022 08:18-0400 Diastolic blood pressure 82 mm[Hg] Pastor Lema MD Work Phone: [facility] 10-01-2022 08:18-0400 Heart rate 78 /min Pastor Lema MD Work Phone: [facility] 10-01-2022 08:18-0400 Respiratory rate 18 /min Pastor Lema MD Work Phone: [facility] 10-01-2022 08:18-0400 SaO2% (BldA) [Mass fraction] 98 % Pastor Lema MD Work Phone: [facility] 10-01-2022 08:18-0400 Systolic blood pressure 122 mm[Hg] Pastor Lema MD Work Phone: [facility] 05-21-2022 10:33-0500 Body height 162.6 cm Vivienne Gudino LOG POND WORKER.DIGITAL LEARNING PLATFORMS MANAGER Work Phone: [facility] 05-21-2022 10:33-0500 Body temperature 97.5 [degF] Vivienne Gudino LOG POND WORKER.DIGITAL LEARNING PLATFORMS MANAGER Work Phone: [facility] 05-21-2022 10:33-0500 Body weight 96.07 kg Vivienne Gudino LOG POND WORKER.DIGITAL LEARNING PLATFORMS MANAGER Work Phone: [facility] 05-21-2022 10:33-0500 Diastolic blood pressure 84 mm[Hg] Vivienne Gudino LOG POND WORKER.DIGITAL LEARNING PLATFORMS MANAGER Work Phone: [facility] 05-21-2022 10:33-0500 Heart rate 73 /min Vivienne Gudino LOG POND WORKER.DIGITAL LEARNING PLATFORMS MANAGER Work Phone: [facility] 05-21-2022 10:33-0500 Respiratory rate 14 /min Vivienne Gudino LOG POND WORKER.DIGITAL LEARNING PLATFORMS MANAGER Work Phone: [facility] 05-21-2022 10:33-0500 SaO2% (BldA) [Mass fraction] 98 % Vivienne Gudino APRN.DIGITAL LEARNING PLATFORMS MANAGER Work Phone: [facility] 05-21-2022 10:33-0500 Systolic blood pressure 130 mm[Hg] Vivienne Gudino APRN.DIGITAL LEARNING PLATFORMS MANAGER Work Phone: [facility] 04-02-2016 09:16-0400 BMI (Body Mass Index) 37.04 kg/m2 Ignacio Adler [facility] Work Phone: 04-02-2016 09:16-0400 Body Temperature 99.4 [degF] Ignacio Merrill MD [facility] Work Phone: 04-02-2016 09:16-0400 BP Diastolic 83 mm[Hg] Ignacio Merrill MD [place] [facility] Work Phone: 04-02-2016 09:16-0400 BP Systolic 115 mm[Hg] Ignacio Merrill MD [facility] Work Phone: 04-02-2016 09:16-0400 BSA (Body Surface Area) 2.15 m2 Ignacio Merrill MD [facility] Work Phone: 04-02-2016 09:16-0400 Height 168.91 cm Ignacio Merrill MD [place] [facility] Work Phone: 04-02-2016 09:16-0400 Pulse (Heart Rate) 78 /min Ignacio Adler [facility] Work Phone: 04-02-2016 09:16-0400 Respiratory Rate 16 /min Ignacio [facility] Work Phone: 04-02-2016 09:16-0400 Weight 105.69 kg Ignacio Merrill MD [facility] Work Phone: Encounters Encounter Date Encounter Type Care Provider Facility Start: 07-28-2023 End: 07-28-2023 ambulatory PASTOR LEMA Facility:[facility] Start: 02-05-2023 Telephone encounter Pastor Lema MD Work Phone: [facility] Procedures Date Procedure Procedure Detail Performing Clinician [...] Author Start: 04-07-20[address]ID SCREEN [facility] Start: 01-27-2024 ANNUAL PCP TEAM PAPER CLEANER SHANE DISEASE VISIT ANNUAL PCP TEAM CHRONIC DISEASE VISIT [facility] Start: 01-27-2024 BP CONTROLLED (<130/80) BP CONTROLLE D (<130/80) [facility] Start: 10-02-2023 ANNUAL PCP TEAM PAPER CLEANER SHANE DISEASE VISIT ANNUAL PCP TEAM CHRONIC DISEASE VISIT [facility] Start: 06-27-2023 Hepatitis B screening URINE ALBUMIN:CREATININE RATIO [facility] Start: 06-27-2023 Hepatitis B surface antibody level LDL CHOLESTEROL [facility] Start: 05-21-2023 ANNUAL PCP TEAM PAPER CLEANER SHANE DISEASE VISIT ANNUAL PCP TEAM CHRONIC DISEASE VISIT [facility] Start: 04-07-[address] [facility] Start: 04-07-2023 COLORECTAL CANCER SCREENING COLORECTAL CANCER SCREENING [facility] Start: 03-06-2023 Influenza vaccination C [facility] Start: 01-01-2023 Hemoglobin A1c/Hemoglobin.total in Blood HBA1C [facility] Start: 10-01-2022 End: 12-01-2022 Hemoglobin A1c in Blood [facility] Work Phone: Payers Date Payer Category Payer Private Health Insurance [facility] CHO[facility] PLUS [id number] 2021-Present [phone] [address] [place] [address] [facility] [id number] 2021 Unknown [id number] Social History Date Type Detail Facility Start: 09-14-2013 End: 05-21-2022 Tobacco smoking status NHIS Never smoked tobacco [facility] Start: 09-14-2013 End: 01-26-2023 Alcohol intake Current drinker of alcohol (finding) [facility] Start: 09-14-2013 History SDOH Alcohol Comment socially [facility] Start: 1970 Sex Assigned At Not on file C [facility] Start: 05-21-2022 Tobacco use and exposure Smoke less tobacco non-user [facility] Start: 05-21-[address] [facility] Start: 05-11-2022 End: 05-21-2022 Exposure to SARS-CoV-2 (event) Not sure [facility] Start: 12-17-2022 End: 01-26-2023 History of Social function [facility] Start: 12-17-2022 End: 01-26-2023 Social connection and isolation panel [facility] Do you belong to any clubs or organizations such as caodaism groups, unions, fraternal or athletic groups, or school groups? No [facility] Are you now , , , , never or living with a partner? [facility] How often to you hav e a drink containing alcohol? Monthly or less [facility] How many standard dr inks containing alcohol do you have on a typical day? [address] [facility] How often do you hav e 6 or more drinks on 1 occasion? Never [facility] How hard is it for y ou to pay for the very basics like food, housing, medical care, and heating Not hard at all [facility] Do you feel stress - tense, restless, nervous, or anxious, or unable to sleep at night because your mind is troubled all the time - these days [OSQ] Only a little [facility] (I/We) worried derrick er (my/our) food would run out before (I/we) got money to buy more. Never true [facility] Start: 05-21-2022 Gender identity Identifies as female gender (finding) [facility] Clinical Notes 02-17-2022 to 07-28-2023 Telephone Encounter - [place] ApacheBeto bustamantewnyayden Campos LPN - 02/05/2023 1:07 PM EDTTelephone Encounter - Pattie Benavides APRN.CNP - 02/05/2023 11:00 AM Pastor Fernandes MD - 01/26/2023 8:27 AM EDT Note Date & Type Note Facility 07-28-2023 Note HNO ID: [id number] Author: JOANN ARROYO RT(R) Service: ? Author Type: Twitchell Operator Type: Progress Notes Filed: 07/28/2023 10:50 [...] RT Pino(R) July 28, 2023 10:50 AM [facility] 07-28-2023 Note HNO ID: [id number] Author: LUCRECIA CORONADO PA Service: ? Author Type: Physician Rework Operator Type: Progress Notes Filed: 07/28/2023 11:09 Note Text: This note was created using NoteWriter. Subjective Jose Dixon is a 52 year old female. HPI 52-year-old female presents for right thumb pain. Patient states pain has been going on for the past 5 days. No injury. 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 (Patient not taking: Reported on 07/28/2023) [id number] OIL ORAL Take by mouth. (Patient not [...] detail warranting prompt ER evaluation. DAPHNE Dsouza [facility] 02-05-2023 Miscellaneous Notes I notified patient Jose that Pattie sent a prescription of Diflucan for her to [facility]. Patient has taken this medication in the past so she is familiar with the dosing instructions. Jose is very thankful for the Rx. Lelia Harp LPN February 05, 2023 1:08 PM Rx for diflucan sent to pharmacy. Jose Dixon called today. : 1970 Allergies: Patient has no known allergies. (home) [phone] (cell) Reason for call: Patient called because [...] N[place] Harp LPN documented in this encounter [facility] 01-26-2023 Note HNO ID: [id number] Author: Pastor Lema MD Service: ? Author Type: Physician Type: Progress Notes Filed: 01/26/2023 10:13 AM Note Text: This note was created using Eleven James. Subjective Jose Dixon is a 52 year [...] excision of the cyst. Pastor Lema MD [facility] 01-26-2023 Note HNO ID: [id number] Author: Marine Snyder LPN Service: ? Author [...] Snyder LPN January 26, 2023 8:11 AM [facility] 01-26-2023 History of Present illness Narrative This note was created using Freespeeter. Subjective Jose Dixon is a 52 year [...] 2023 8:11 AM documented in this encounter [facility] 12-17-2022 Note HNO ID: [id number] Author: Pastor Lema MD Service: ? Author Type: Physician Type: Progress Notes Filed: 12/17/2022 10:41 AM Note Text: This note was created using Eleven James. Subjective Jose Dixon is a 52 year [...] for mammogram and colonoscopy. Women's health per COYOTE HUNTER. Pastor Lema MD [facility] 12-17-2022 Note HNO ID: [id number] Author: Yulisa Short LPN Service: ? Author Type: LICENSED NURSE Type: Progress Notes Filed: 12/17/2022 10:41 AM Note Text: DUE HEALTH MAINTENANCE HEPATITIS B(1 of 3 - 3-dose series) unsure COVID-19 VACCINE(1) declined PNEUMOCOCCAL(1 - PCV) declined DILATED RETINAL EXAM DIABETIC FOOT EXAM HEPATITIS C SCREENING HIV SCREENING BP CONTROLLED (<130/80) DTAP,TDAP,TD(1 - Tdap) declined PAP TESTING [facility] HPV TESTING SHINGRIX VACCINE(1 of 2) declined Yulisa Short LPN December 17, 2022 9:59 AM [facility] 10-03-[address] [...] 2022 9:17 AM documented in this encounter [facility] 10-01-2022 Note HNO ID: [id number] Author: Pastor Lema MD Service: ? Author Type: Physician Type: Progress Notes Filed: 10/01/2022 8:42 AM Note Text: This note was created using Eleven James. Subjective Jose Dixon is a 52 year [...] A1c. Titrate Ozempic if A1c remains elevated. [facility] 10-01-2022 Note HNO ID: [id number] Author: Yulisa Short LPN Service: ? Author Type: LICENSED NURSE Type: Progress Notes Filed: 10/01/2022 8:42 AM Note Text: Patient is in office for follow up for diabetes. No complaints or concerns Yulisa Short LPN October 01, 2022 8:15 AM [facility] 10-01-2022 History of Present illness Narrative This note was created using BeOnDeskriter. Subjective Jose Dixon is a 52 year [...] 2022 8:15 AM documented in this encounter [facility] 07-28-2022 Miscellaneous Notes Pharmacy faxed requesting the following refill. Requested Prescriptions Pending Prescriptions Disp Refills omega-3 acid ethyl esters (LOVAZA) 1 gram capsule [Pharmacy Med Name: OMEGA-3 ETHYL ESTERS 1 GM CAP] 120 capsule 2 Sig: TAKE 2 CAPSULES BY MOUTH TWICE A DAY Patient last appointment: 07/01/2022 Patient Phone numbers: [phone] (home) [phone] (work) Request is for script(s) to be escript to pharmacy. Helga Mccord LPN documented in this encounter [facility] 07-01-2022 Miscellaneous Notes Patient notified of information, [...] these results . documented in this encounter [facility] 05-21-2022 Note HNO ID: [id number] Author: Viveinne Gudino APRN.DIGITAL LEARNING PLATFORMS MANAGER Service: ? Author Type: Nurse Practitioner Type: Progress Notes Filed: 05/23/2022 9:36 AM Note Text: This note was created using BeOnDeskriter. Subjective Jose Dixon is a 51 year [...] dermatology - CONSULT TO DERMATOLOGY Vivienne Gudino APRN.DIGITAL LEARNING PLATFORMS MANAGER [facility] 05-21-2022 Instructions Vivienne Gudino APRN.ESSENCE - 05/21/2022 10:56 AM EST - Restart Ozempic- Inject 0.25mg weekly x 4 weeks, then increase to 0.5mg injected weekly - Continue all other medications - Complete labs, fast for 12 hrs and complete at earliest convenience - Follow up with in 3 months documented in this encounter [facility] 05-21-2022 History of Present illness Narrative This note was created using Eleven James. Subjective Jose Dixon is a 51 year [...] dermatology - CONSULT TO DERMATOLOGY Vivienne Gudino APRN.DIGITAL LEARNING PLATFORMS MANAGER documented in this encounter [facility] 02-17-2022 Miscellaneous Notes Please enter pharmacy Patient called into office. Stated she has a vaginal yeast infection. She used a Monistat 3 day over the counter vaginal insert. Yeast infection had relief then came back. Asking if you could possibly prescribe something or any recommendations. Pharmacy [facility] Nayely Short LPN February 13, 2022 12:00 PM documented in this encounter [facility] Diagnosis Hypertriglyceridemia- Primary Pure hyperglyceridemia [facility] Diagnosis Hypertriglyceridemia Pure hyperglyceridemia [facility] Diagnosis Diabetes beginning in adulthood (type 2/adult onset) (HCC)- Primary Type 2 diabetes mellitus without complication, without long-term current use of insulin (HCC) [facility] Diagnosis Sebaceous cyst- Primary Abscess Cellulitis and abscess of unspecified site documented in this encounter [facility] Summary Purpose Family History No Family History Records FoundNo Family History Records FoundNo Family History Records FoundNo Family History Records Found Advance Directives No Advanced Directives Records FoundNo Advanced Directives Records FoundNo Advanced Directives Records FoundNo Advanced Directives Records Found Reason for Referral Specialty Diagnoses / Procedures Referred By Contac t Referred To Contact Dermatology Diagnoses Sebaceous cyst Procedures CONSULT TO DERMATOLOGY OFFICE/OUTPATIENT [facility] 60-74 MINUTES Vivienne Gudino APRN.DIGITAL LEARNING PLATFORMS MANAGER [address] [place] [address] Referral ID Status Reason Start Date Expiration Date Visits Requested Visits Authorized [id number] Pending Review PCP Requested Referral 05/21/2023 1 1 Specialty Diagnoses / Procedures Referred By Contac t Referred To Contact Plastic Surgery Diagnoses Sebaceous cyst Procedures CONSULT TO PLASTIC SURGERY OFFICE/OUTPATIENT [facility] 60-74 MINUTES Pastor Lema MD [address] [place] [address] Referral ID Status Reason Start Date Expiration Date Visits Requested Visits Authorized [id number] Pending Review PCP Requested Referral 01/26/2023 01/26/2024 1 1 Additional Source Comments INFORMATION SOURCE (unrecogn ized section and content) DATE CREATED AUTHOR AUTHOR'S ORGANIZ ATION 04/13/2019 [facility] Louise Lynn DATE CREATED AUTHOR AUTHOR'S ORGANIZ ATION 01/26/2023 [facility] DATE CREATED AUTHOR AUTHOR'S ORGANIZ ATION 07/29/2023 [facility] Source Comments (unrecognize d section and content) In the event this informatio n is protected by the Federal Confidentiality of Alcohol and Drug Abuse Patient Records regulations: The Federal rules restrict any use of the information to criminally investigate or prosecute any alcohol or drug abuse patient.[facility] the event this information is protected by the Federal Confidentiality of Alcohol and Drug Abuse Patient Records regulations: The Federal rules restrict any use of the information to criminally investigate or prosecute any alcohol or drug abuse patient.[facility] the event this information is protected by the Federal Confidentiality of Alcohol and Drug Abuse Patient Records regulations: The Federal rules restrict any use of the information to criminally investigate or prosecute any alcohol or drug abuse patient.[facility] the event this information is protected by the Federal Confidentiality of Alcohol and Drug Abuse Patient Records regulations: The Federal rules restrict any use of the information to criminally investigate or prosecute any alcohol or drug abuse patient.[facility] the event this information is protected by the Federal Confidentiality of Alcohol and Drug Abuse Patient Records regulations: The Federal rules restrict any use of the information to criminally investigate or prosecute any alcohol or drug abuse patient.[facility] the event this information is protected by the Federal Confidentiality of Alcohol and Drug Abuse Patient Records regulations: The Federal rules restrict any use of the information to criminally investigate or prosecute any alcohol or drug abuse patient.[facility] the event this information is protected by the Federal Confidentiality of Alcohol and Drug Abuse Patient Records regulations: The Federal rules restrict any use of the information to criminally investigate or prosecute any alcohol or drug abuse patient.[facility] the event this information is protected by the Federal Confidentiality of Alcohol and Drug Abuse Patient Records regulations: The Federal rules restrict any use of the information to criminally investigate or prosecute any alcohol or drug abuse patient.[facility] the event this information is protected by the Federal Confidentiality of Alcohol and Drug Abuse Patient Records regulations: The Federal rules restrict any use of the information to criminally investigate or prosecute any alcohol or drug abuse patient.[facility] the event this information is protected by the Federal Confidentiality of Alcohol and Drug Abuse Patient Records regulations: The Federal rules restrict any use of the information to criminally investigate or prosecute any alcohol or drug abuse patient.[facility] the event this information is protected by the Federal Confidentiality of Alcohol and Drug Abuse Patient Records regulations: The Federal rules restrict any use of the information to criminally investigate or prosecute any alcohol or drug abuse patient.[facility] the event this information is protected by the Federal Confidentiality of Alcohol and Drug Abuse Patient Records regulations: The Federal rules restrict any use of the information to criminally investigate or prosecute any alcohol or drug abuse patient.[facility] Reason for Visit (unrecogniz ed section and [...] Care Teams (unrecognized sec tion and content) Materials Associate Relationship Specialty Start Date End Date Pcp, No PCP - General 01/18/22 08/05/22 Materials Associate Relationship Specialty Start Date End Date Pcp, No PCP - General 01/18/22 08/05/22 Materials Associate Relationship Specialty Start Date End Date Pcp, No PCP - General 01/18/22 08/05/22 Materials Associate Relationship Specialty Start Date End Date Pastor Lema MD [address] [place], [place] [id number] PCP - General Family Medicine 10/29/22 Materials Associate Relationship Specialty Start Date End Date Pastor Lema MD [address] [place], [place] [id number] [phone] PCP - General Family Medicine 10/29/22 Materials Associate Relationship Specialty Start Date End Date Pastor Lema MD [address] [place], [place] [phone] PCP - General Family Medicine 10/29/22 Chidi Thornton MD [address] [place] [address] General Surgery 12/10/22 [facility] [address] [place] [address] Hematology/Oncology 12/10/22 Breanna Ferrera [address] [place] [address] STRATEGIC PLANNING SPECIALIST 01/23/23 Stephanie Dwyer [address] [place] [address] Vascular Medicine 01/23/23 Materials Associate Relationship Specialty Start Date End Date Pastor Lema MD [address] [place] [address] PCP - General Family Medicine 10/29/22 Chidi Thornton MD [address] [place] [address] General Surgery 12/10/22 Marsha Frausto [address] [place] [address] Hematology/Oncology 12/10/22 Breanna Ferrera [address] [place] [address] STRATEGIC PLANNING SPECIALIST 01/23/23 Stephanie Dwyer [address] [place] [address] Vascular Medicine 01/23/23 Materials Associate Relationship Specialty Start Date End Date Pastor Lema MD [address] [place] [address] PCP - General Family Medicine 10/29/22 Chidi Thornton MD [address] [place], [place] [phone] General Surgery 12/10/22 Marsha Frausto [address] [place], [place] [address] Hematology/Oncology 12/10/22 Breanna Ferrera [address] [place] [address] STRATEGIC PLANNING SPECIALIST 01/23/23 Stephanie Dwyer [address] [place] [address] Vascular Medicine 01/23/23 FOR RECORDS [...] BE BASED ON THE PRIMARY CLINICAL RECORDS. [employer] [facility]. provides no warranty or guarantee of the accuracy or completeness of information in this document.
[2023-08-25] MEDS: Lactated Ringers 1,000 ML 15 ML IV (08:17)
[2023-08-25 08:22] LABS: Internal QC Validated? YES +Cl - CLEAR BKGD; Pregnancy, Urine Negative Negative; Record Kit Lot#,Urine Preg 718086
[2023-08-25 08:24] LABS: Bedside Glucose 199 mg/dL (74-106)
--- NOTE | 2023-08-25 09:35 | EMB_PTH ---
PATHOLOGY RESULTS PATIENT: TOI IDXON [place]: [facility] U#:[id number] AGE/SX: 52/F ROOM: RE08/25/[address]: Dr. Breanna Ferrera MD : 1970 BED: DIS: 08/25/2023 SPEC #: [id number] RECD: 08/25/23 13:01 STATUS: CIELO CASTRO #: [id number] GILLES: 08/25/23 09:[address]: Breanna Ferrera DEPT: SURGICAL PATHOLOGY RECD BY: Astrid Barriga ENTERED: 08/25/23 13:01 SP TYPE: ENDOM BX/C OTHR DR: Dr. Pastor Overton MD Tissues: Endometrium, NOS Procedures: Surgery Specimen Level IV HEADER OPERATION: Hysteroscopy, dilation and curettage with Symphion PRE-OP DIAGNOSIS: Postmenopausal bleeding TISSUE SUBMITTED: Endometrial polyp and lining MICROSCOPIC DIAGNOSIS Endometrial polyp and lining: Disordered proliferative endometrium to simple endometrial hyperplasia without atypia. Fragments of myometrium. GRACIA:case 08/26/2023 MICROSCOPIC DESCRIPTION Slides are reviewed. GROSS DESCRIPTION Received in fixative is one container labeled with the patient's name and designated endometrial polyp and lining. The specimen consists of multiple irregular fragments of kyle-pink to hemorrhagic soft tissue that in aggregate measure 2.5 x 1.5 x 0.2 cm. The specimen is totally submitted in one cassette. / GRACIA:case 08/25/2023 TC:5 CPT: 22776
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
--- NOTE | 2023-08-25 10:51 | DCINST_ITS ---
Discharge Instructions Diet Discharge Diet: No restrictions Activity Discharge Activity: Return to Normal Activity, May Shower and May Take a Tub Bath (after 1 week) May resume sexual activity in: 1-2 weeks Weight Bearing Status: Weight bearing as tolerated Lifting Restrictions: none Dressing / Incision Call your doctor if you observe: Fever of 101 or Higher, Using more than 1 pad per hour, Shortness of breath and Uncontrolled pain Follow Up Care Please Follow Up With: Breanna Ferrera MD When: Call [phone] to schedule appointment. Test Results: Test results from this visit will be discussed in further detail at your follow- up appointment, if applicable. Discharge Plan Admission Attending Provider: Breanna Ferrera Primary Care Provider: Pastor Overton Discharge Orders/Prescriptions Prescriptions: No Action metformin 500 mg tablet 1,000 mg PO DAILY losartan 100 mg tablet 50 mg PO QDAY ferrous sulfate [Kacy-Time] 325 mg (65 mg iron) tablet 65 mg PO DAILY cholecalciferol (vitamin D3) 5,000 unit capsule 5,000 unit PO DAILY omega 0-xti-ykk-fish oil [Fish Oil] 60-90-500 mg capsule 2 cap PO BID Farxiga 10 mg tablet 10 mg PO DAILY semaglutide 0.25 mg or 0.5 mg(2 mg/1.5 mL) pen injector 1 mg subcut MO acetaminophen 325 MG tablet 650 mg PO Q6H PRN PRN (Reason: Fever, headache, pain) 0RF Other Ambulatory Orders: ,Urine (Routine) Timeframe: [id number] Facility: [facility] - Location: Laboratory Ordered By: Dr. Tolu Ocasio Referrals / Follow Up: Pastor Overton MD [Primary Care Provider] - Disposition Disposition (needs filled in before D/C Order can be placed): Home, Self Care
--- NOTE | 2023-08-25 10:51 | OP.PCM_ITS ---
Problems Associated Problem List Diagnoses (1) Postmenopausal bleeding: (2) Status post hysteroscopy: Report of Operation Date of Procedure: 08/25/23 Pre-Operative Diagnosis: see problem list Post-Operative Diagnosis: same Surgery/Procedure Performed:: D&C hysteroscopy polypectomy using symphion Description of Surgical Findings:: left upper polypoid area Surgeon: Breanna Ferrera weight and test bar clerk: None Type of Anesthesia: Local MAC Special Medications: none Specimen's removed: EMC, polyp Drains: none Estimated Blood Loss (mL): 50 Fluids Replaced: crystalloid Description of Procedure: Patient was prepped and draped in a normal sterile fashion under MAC anesthesia. A weighted speculum was placed in the vagina and the anterior lip of the cervix was grasped with a single-tooth tenaculum. A paracervical block was placed with 1% lidocaine. Cervix was progressively dilated to allow passage of a 5 mm hysteroscope. The lining was fully visualized and noted to have polypoid area in the left upper fundal portion . Uterine sounded to 7 cm. Using the symphion device, the polyp region was progressively removed without complications. Direct visual curettage was performed using the device , and all specimens were sent to pathology. All instruments were removed from the vagina and excellent hemostasis was noted. Patient was awoken and taken to recovery in stable condition. Grafts/Implants Used: none Complications none Admit VTE Documentation VTE Present on Admission: No VTE Mechan Device Prophylaxis: SCD's Multi Select Codes Urinary/Genital Urinary/Genital CPT Codes: 86481 Hysteroscopy,EMC, Polypectomy
[2023-08-25] MEDS: Lidocaine 1% (30 ml sdv) 30 ML Vial (11:15)
[2023-08-25 12:33] LABS: Bedside Glucose 178 mg/dL (74-106)
== END 2023-08-25 12:46 | disposition home or self-care (01) ==
LOC: SDC 07:43 → AC 07:43
PROVIDERS: Anesthesiology; PCP Family Medicine; Referring Provider Obstetrics & Gynecology; Visit Provider Obstetrics & Gynecology
PROC: 0UDB8ZZ Extraction of Endometrium, Via Natural or Artificial Opening Endoscopic (ICD-10-PCS; CPT 58558; principal; 2023-08-25 09:25)
DX: N85.01 Benign endometrial hyperplasia (principal); E11.9 Type 2 diabetes mellitus without complications; N95.0 Postmenopausal bleeding; I10 Essential (primary) hypertension; Z79.84 Long term (current) use of oral hypoglycemic drugs; Z79.899 Other long term (current) drug therapy
CPT/HCPCS: 58558; 00952; 36415; 81025; 82962; 86850; 86900; 86901; 88305; 93005; J7120; J2405

== ENCOUNTER → 2023-09-03 | Outpatient (CLI) | payer OTHER, SELFPAY ==
--- NOTE | 2023-09-03 15:37 | BD_ITS ---
STUDY: DUAL ENERGY X-RAY ABSORPTIOMETRY / DXA REASON FOR EXAM: Female, 52 years old. SCREENING FOR OSTEOPOROSIS TECHNIQUE: Bone Mineral Density (BMD) measurements of lumbar spine and bilateral hips were obtained. COMPARISON: None. FINDINGS: Lumbar Spine (L1-L4): g/cm2 (1.047) / T-score (-0.3) / Z-score (0.7) Findings are suggestive of normal bone density with a low fracture risk. Left Femur Total: g/cm2 (0.911) / T-score (-0.3) / Z-score (0.3) Left Femoral Neck: g/cm2 (0.785) / T-score (-0.6) / Z-score (0.3) Right Femur Total: g/cm2 (0.644) / T-score (-2.4) / Z-score (-1.9) Right Femoral Neck: g/cm2 (0.518) / T-score (-3.0) / Z-score (-2.1) BD/Dexa Bone Density Study IMPRESSION: The patient is considered osteoporotic as outlined below according to World Joe Organization (WHO) criteria with a high fracture risk. Reference Information: The T-score is the number of standard deviations above or below the standard which is normal for young adults at their peak bone mineral density. The World Health Organization (WHO) interprets the T-scores as follows: Above -1 Normal bone density Between -1 and -2.5 Osteopenia Equal to / or below -2.5 Osteoporosis As a practical clinical guideline, osteopenia may be graded as follows: Mild -1 through -1.5 Moderate -1.6 through -2.0 Severe -2.1 through -2.4 The Z-score is the number of standard deviations above or below age-matched controls. A Z-score of less than -1.5 would be considered abnormal. References: 1. NIH Osteoporosis and Related Bone Diseases www osteo.org 2. International Society for Clinical Densitometry www iscd.org 3. National Osteoporosis Foundation www nof.org Electronically Signed: Darius Oneal MD at 10:03 [facility] ,
--- OUTSIDE RECORDS SUMMARY | 2023-09-03 22:26 | XMS RPT_ITS | CCD ---
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 Medicine 10/29/22 Chidi Thornton MD [address] [place], [place] [address] General Surgery 12/10/22 Marsha Frausto [address] [place] [address] Hematology/Oncology 12/10/22 Breanna Ferrera [address] [place] [phone] PET CARE ASSISTANT 01/23/23 Stephanie Dwyer [address] [place] [address] Vascular Medicine 01/23/23 Surg Physician Asst Relationship Specialty Start Date End Date Pastor Lema MD [address] [place] [address] PCP - General Family Medicine 10/29/22 Chidi Thornton MD [address] [place] [address] General Surgery 12/10/22 Marsha Frausto [address] [place] [address] Hematology/Oncology 12/10/22 Breanna Ferrera [address] [place] [address] PET CARE ASSISTANT 01/23/23 Stephanie Dwyer [address] [place] [address] Vascular Medicine 01/23/23 Surg Physician Asst Relationship Specialty Start Date End Date Pastor Lema MD [address] [place] [address] PCP - General Family Medicine 10/29/22 Chidi Thornton MD [address] [place] [address] General Surgery 12/10/22 Marsha Frausto [address] [place] [address] Hematology/Oncology 12/10/22 Breanna Ferrera [address] [place] [phone] PET CARE ASSISTANT 01/23/23 Stephanie Dwyer [address] [place] [address] Vascular Medicine 01/23/23 Surg Physician Asst Relationship Specialty Start Date End Date Pastor Lema MD [address] [place], [place] [address] PCP - General Family Medicine 10/29/22 Chidi Thornton MD [address] [facility], [place] [id number] General Surgery 12/10/22 Marsha Frausto [address] [place] [address] Hematology/Oncology 12/10/22 Breanna Ferrera [address] [place] [phone] Ios Architect 01/23/23 Stephanie Dwyer [address] [place] [address] Vascular Medicine 01/23/23 FOR RECORDS PERTAINING TO [...] BE BASED ON THE PRIMARY CLINICAL RECORDS. [facility]. provides no warranty or guarantee of the accuracy or completeness of information in this document.
== END | disposition home or self-care (01) ==
PROVIDERS: PCP Family Medicine; Referring Provider Internal Medicine Hematology & Oncology; Visit Provider Internal Medicine Hematology & Oncology
DX: Z78.0 Asymptomatic menopausal state (principal); Z13.820 Encounter for screening for osteoporosis
CPT/HCPCS: 77080

== ENCOUNTER 2024-01-05 05:19 | Day surgery (SDC) | payer OTHER, SELFPAY ==
[2024-01-01 09:11] LABS: Hematocrit 46.3 % (37-47); Hemoglobin 15.3 g/dL (12.0-15.0); Mean Corpuscular Hgb 28.2 pg (27.0-32.0); Mean Corpuscular Volume 85.4 fL (81-99); Mean Platelet Vol. 9.1 fl (6.2-12.0); Platelet Count 292 K/mm3 (150-450); RBC Distribution Width CV 13.4 % (11.6-14.6); RBC Distribution Width SD 41.3 fl (35.1-43.9); Red Blood Count 5.42 M/mm3 (4.2-5.4); White Blood Count 7.2 K/mm3 (4.4-11.0)
[2024-01-01 09:25] LABS: Magnesium 2.5 mg/dL (1.6-2.6)
[2024-01-01 09:41] LABS: Hemoglobin A1c 6.6 % (3.8-5.6)
[2024-01-05] VITALS (14 sets, daily range): BP systolic 110–141; BP diastolic 64–85; PULSE 60–90; RESP 14–16; TEMP 36.1–36.6; O2SAT 94–99; BMI 33.7
--- NOTE | 2024-01-05 | HYST_PTH ---
PATIENT: TOI DIXON LOC: [facility] U#:[id number] AGE/SX: 53/F ROOM: RE01/05/[address]: Dr. Breanna Ferrera MD : 1970 BED: DIS: 01/05/2024 SPEC #: [id number] RECD: 01/05/24 13:21 STATUS: CIELO CASTRO #: [id number] GILLES: 01/05/24 00:[address]: Breanna Ferrera DEPT: SURGICAL PATHOLOGY RECD BY: Heri Lei ENTERED: 01/05/24 13:21 SP TYPE: HYSTERECT OTHR DR: Dr. Pastor Overton MD Tissues: Uterus, NOS Procedures: Surgery Specimen Level V HEADER OPERATION: ERAS, hysterectomy, LAVH, bilateral salpingo-oopherectomy PRE-OP DIAGNOSIS: Endometrial hyperplasia without atypia, postmenopausal bleeding TISSUE SUBMITTED: Cervix, uterus, bilateral fallopian tubes, bilateral ovaries MICROSCOPIC DIAGNOSIS Uterus, hysterectomy: Cervix - Chronic inflammation. Endometrium - Weakly proliferative and inactive endometrium with focal secretory change. Myometrium - Leiomyoma and focal changes suggestive of adenomyosis. Right fallopian tube- Benign paratubal cyst. Right ovary- No pathologic change. Left fallopian tube- No pathologic change. Left ovary- Corpora albicans. See comment. ABHIJIT/ 01/06/2024 COMMENT Case has been reviewed in consultation with Dr. Thorne who concurs with the above diagnosis. IDC:SJ MICROSCOPIC DESCRIPTION Slides are reviewed. GROSS DESCRIPTION Received in fixative is one container labeled with the patient's name and designated uterus, cervix, bilateral fallopian tubes, bilateral ovaries. The specimen consists of a hysterectomy specimen consisting of uterus with cervix and attached bilateral fallopian tubes and ovaries. The uterus with cervix weighs 54 gm and measures 8.5 x 5.0 x 3.0 cm. The serosal surface is kyle glistening. The ectocervical mucosa is unremarkable. The external os is oval and patulous in contour. The endocervical canal measures 3.0 cm in length and the endocervical mucosa is kyle glistening and unremarkable. The endometrial cavity measures 4.0 cm in length and 2.0 cm in width. The endometrium is kyle, glistening without any mass lesions and measures 0.1 cm in thickness. Sections of uterine wall reveal a kyle nodular mass measuring 0.4cm in greatest dimension. Uterine wall measures up to 1.5cm in thickness. Right fallopian tube measures 5.5cm in length and up to 0.7cm in diameter. Fimbral end is identified. A para tubal cyst is noted measuring 1.0cm in greatest dimension. The cyst is filled with thick mucoid fluid. The cyst wall is smooth and measures less than 0.1cm in thickness. Section of fallopian tube reveal unremarkable cut surfaces. No tubal -ovarian adhesions are identified. Right ovary measures 3.5 x 2.0 x 2.2cm. Sections reveal unremarkable cut surfaces. Left fallopian tube has similar appearance to right and measures 5.0cm in length and up to 0.5cm in diameter. Soft to cystic left ovary measures 3.5 x 2.5 x 2.0cm. Sections reveal a cyst filled with clear fluid measuring 1.0cm in greatest dimension. Death Surveys Coder sections are submitted in 12 cassettes as follows: 1 - anterior cervix, 2 - posterior cervix, 3 & 4 - anterior uterine wall, small kyle nodular mass, 5-7 - posterior uterine wall, 8- right fallopian tube, 9- right paratubal cyst, 10- right ovary, 11- left fallopian tube and ovary, 12- more sections of left ovary GRACIA: 01/05/2024 TC:5 CPT: 32592
[2024-01-05] MEDS: Magnesium 1 GM over 15 mins IV (06:19)
[2024-01-05] MEDS: Lactated Ringers 1,000 ML 40 ML IV ×3 (06:19→11:56)
[2024-01-05] MEDS: Enoxaparin 40 MG/0.4 ML Syringe SC (06:19)
[2024-01-05] MEDS: Scopolamine 1mg/72hr Patch 1 PATCH TD (06:19)
[2024-01-05] MEDS: dexAMETHasone 4 MG/ML Vial 8 MG IV (06:22)
[2024-01-05] MEDS: Celecoxib 200 MG Capsule 400 MG PO (06:22)
[2024-01-05] MEDS: Gabapentin 600 MG Tablet PO (06:22)
[2024-01-05] MEDS: Acetaminophen 500 MG Tablet 1000 MG PO ×2 (06:23→11:49)
[2024-01-05] MEDS: Phenazopyridine 95 MG Tablet 190 MG PO (06:23)
[2024-01-05 06:52] LABS: Bedside Glucose 181 mg/dL (74-106)
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
[2024-01-05] MEDS: Cefazolin 2 GM in 0.9% Normal Saline (100mL Bag) 100 ML IV (07:22)
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
--- NOTE | 2024-01-05 07:29 | PCM.OPRPT ---
Problems Associated Problem List Diagnoses (1) Endometrial hyperplasia without atypia: (2) Postmenopausal bleeding: (3) Hx of bilateral mastectomy: Report of Operation Date of Procedure: 01/05/24 Pre-Operative Diagnosis: see A/P Post-Operative Diagnosis: same Surgery/Procedure Performed:: JAMES Surgeon: Breanna Ferrera Type of Anesthesia: General Specimen's removed: uterus, tubes, ovaries Drains: soliman Estimated Blood Loss (mL): 200 Fluids Replaced: crystalloid Description of Procedure: Patient received preoperative antibiotics and SCDs were on preoperatively. Patient was taken back to the operating room and placed in the dorsal lithotomy position. General anesthesia was induced and patient was prepped and draped in normal sterile fashion. Uterine manipulator was placed inside the uterus and Soliman catheter placed in the bladder. The umbilicus was grasped with towel clamps and an intraumbilical incision was made after injecting with quarter percent Marcaine and a Veress needle entered into the abdomen confirmed to be intra-abdominal with a low opening pressure. Abdomen was insufflated with CO2 gas and the Veress needle removed and the 5 mm trocar was placed under direct visualization without complication. Right and left lower quadrants were transilluminated and injected with quarter percent Marcaine and 5 mm ports placed under direct visualization. Pelvis was well visualized see operative findings for additional information. Bilateral fallopian tubes and ovaries were identified and the IP ligament transected with the LigaSure device to the level of the cardinal ligament which was also transected with the LigaSure device. The broad ligament was opened up by transecting the round ligament bilaterally and skeletonizing the uterine vessels bilaterally and creating a bladder flap using the LigaSure device. The uterine arteries were transected bilaterally with good visualization of the bladder and the ureters were seen to be inferior lateral to the operative area. Attention was then paid to the vaginal portion of the procedure and the cervix was grasped with Raeann clamps and circumferentially injected with dilute vasopressin. A circumferential incision was made and the vaginal mucosa was mobilized off posteriorly and the cul-de-sac entered into sharply and a longneck speculum placed. The anterior cul-de-sac was then identified and entered into sharply. The uterosacral ligaments were clamped cut and suture ligated with 0 Monocryl bilaterally followed by the cardinal ligaments which were clamped cut and suture ligated bilaterally with 0 Monocryl. The uterus serially descended and was removed without difficulty. Pelvic sidewall pedicles were checked and noted to have excellent hemostasis. The vaginal mucosa was reapproximated incorporating the posterior peritoneum. This was reapproximated using 0 Vicryl [id number] sutures. Excellent hemostasis was noted. The pelvis and cul-de-sac were well visualized and no significant active bleeding noted but some raw areas were seen on the peritoneum and therefore floseal was applied. Pressure was taken down and the areas visualized and noted of excellent hemostasis. All ports were removed under direct visualization without complication and the abdomen was desufflated of air. The instruments were removed from the abdomen and the vaginal sweep was negative. Port sites on the abdomen were closed with 4-0 Monocryl interrupted sutures and Steri's and windows were applied. She was awoken and taken recovery in stable condition. Grafts/Implants Used: none Procedure Start Time: 07:22 Procedure Stop Time: 09:50 Complications none Admit VTE Documentation VTE Present on Admission: No VTE Mechan Device Prophylaxis: SCD's VTE Pharm Prophylaxis ordered?: Yes Procedures Urinary/Genital [id number]: 03133 LAVH+BS/O <250gr Uterus
--- NOTE | 2024-01-05 07:31 | PCM.DC ---
Discharge Instructions Diet Discharge Diet: No restrictions Activity May resume sexual activity in: 6 weeks Weight Bearing Status: Full weight bearing Dressing / Incision Call your doctor if your incision/area has: Continuous Slow Oozing, Sudden Increased Bleeding, Increased Pain/ Swelling, Increased Redness and Foul Smelling Discharge Call your doctor if you observe: Fever of 101 or Higher, Using more than 1 pad per hour, Shortness of breath, Chest pain and Uncontrolled pain Suture Line Care: Avoid Pulling/Pushing and Avoid Pinching/Bending Remove Dressing in: 1 week (if present) Cleanse incision/area with: Soap & Water and Keep Dressing Clean & Dry Follow Up Care Please Follow Up With: Breanna Ferrera MD When: Call to make an appointment with your doctor for a postop visit in 2 and 6 weeks. Test Results: Test results from this visit will be discussed in further detail at your follow-up appointment, if applicable. Discharge Plan Admission Attending Provider: Breanna Ferrera Primary Care Provider: Pastor Overton Instructions Print Language: Vietnamese Discharge Orders/Prescriptions Prescriptions: New oxycodone-acetaminophen [Percocet] 5-325 mg tablet 1 tab PO Q6H PRN (Reason: pain) 7 Days Qty: 20 0RF naproxen 500 mg tablet 500 mg PO BID PRN PRN (Reason: Pain) Qty: 30 1RF No Action metformin 500 mg tablet 1,000 mg PO DAILY losartan 100 mg tablet 50 mg PO QDAY ferrous sulfate [Kacy-Time] 325 mg (65 mg iron) tablet 65 mg PO DAILY cholecalciferol (vitamin D3) 5,000 unit capsule 5,000 unit PO DAILY omega 4-bfh-afb-fish oil [Fish Oil] 60-90-500 mg capsule 2 cap PO BID Farxiga 10 mg tablet 10 mg PO DAILY semaglutide 0.25 mg or 0.5 mg(2 mg/1.5 mL) pen injector 1 mg subcut TU Patient Comments: INSTRUCTED NOT TO USE 7 DAYS PRIOR TO OR PER ANESTHESIA acetaminophen 325 MG tablet 650 mg PO Q6H PRN PRN (Reason: Fever, headache, pain) 0RF Referrals / Follow Up: Pastor Overton MD [Primary Care Provider] - Disposition Disposition (needs filled in before D/C Order can be placed): Home, Self Care
[2024-01-05] MEDS: Vasopressin 20 UNITS/ML Vial (08:31)
[2024-01-05 08:37] LABS: Bedside Glucose 191 mg/dL (74-106)
[2024-01-05] MEDS: Bupivacaine 0.25% 30 ML Vial (09:34)
[2024-01-05] MEDS: Ondansetron 4 MG/2 ML Vial IV (09:44)
--- NOTE | 2024-01-05 10:29 | PCM.POST.ANE ---
Anesthesia: Postop Eval I Current Vital Signs Temperature: 97.5 F Pulse Rate: 82 Blood Pressure: 120/70 Respiratory Rate: 14 Pulse Ox: 94 Oxygen Delivery Method: Room Air Assessment Airway patent: Yes Spontaneous unlabored respirations: Yes Mental status: Awake and Calm nausea: No Vomiting: No Anesthesia Complication: No Fluid Hydration Crystalloid volume administer (ml): 1,000 Total IV fluid infused: 1,000 Progress Note Anesthesia document: Postop Eval 1 completed: Yes
[2024-01-05] MEDS: Insulin Lispro 100 UNIT/ML INSULN.PEN SC (11:04)
[2024-01-05] MEDS: Ketorolac 30 MG/ML Syringe IV (11:49)
[2024-01-05 11:51] LABS: Bedside Glucose 247 mg/dL (74-106)
[2024-01-05] MEDS: oxyCODONE 5 MG Tablet PO (12:47)
[2024-01-05 12:53] LABS: Hematocrit 39.1 % (37-47); Hemoglobin 13.1 g/dL (12.0-15.0); Mean Corp Hgb Conc 33.5 g/dL (32-36); Mean Corpuscular Hgb 28.3 pg (27.0-32.0); Mean Corpuscular Volume 84.4 fL (81-99); Platelet Count 227 K/mm3 (150-450); RBC Distribution Width CV 13.2 % (11.6-14.6); RBC Distribution Width SD 40.3 fl (35.1-43.9); Red Blood Count 4.63 M/mm3 (4.2-5.4)
[2024-01-05 14:43] LABS: Absolute Lymphocyte Count 1.19 X10^3/uL (0.83-4.51); Absolute Neutrophil Count 12.6 X10^3/uL (2.0-7.7); Basophil# 0.04 X10^3/uL; Basophil% 0.3 % (0-1); Hematocrit 44.5 % (37-47); Hemoglobin 14.9 g/dL (12.0-15.0); Lymphocyte # 1.19 X10^3/ul (0.83-4.51); Lymphocyte % 8.5 % (19-41); Mean Corp Hgb Conc 33.5 g/dL (32-36); Mean Corpuscular Hgb 28.1 pg (27.0-32.0); Mean Corpuscular Volume 83.8 fL (81-99); Mean Platelet Vol. 9.1 fl (6.2-12.0); Monocyte# 0.14 X10^3/uL; NRBC Flagged by Analyzer 0 % (0-5); Neutrophil # 12.64 X10^3/uL (2.7-7.7); Neutrophil % 89.8 % (47-70); Platelet Count 271 K/mm3 (150-450); RBC Distribution Width CV 13.2 % (11.6-14.6); RBC Distribution Width SD 39.8 fl (35.1-43.9); Red Blood Count 5.31 M/mm3 (4.2-5.4); White Blood Count 14.1 K/mm3 (4.4-11.0)
--- NOTE | 2024-01-05 17:07 | POSTOPAN2_ITS ---
Anesthesia Postop Eval I Sum Postop Eval Completion status Anesthesia document: Postop Eval 1 completed: Yes Anesthesia Postop Eval I Summary Anesthesia Postop Eval I Summary: Anesthesia Postop Eval I: Assessment Summary Airway patent Yes 01/05/24 10:30 EKG [email or web address] Spontaneous unlabored Yes 01/05/24 10:30 EKG [email or web address] respirations Mental status Awake,Calm 01/05/24 10:30 EKG [email or web address] nausea No 01/05/24 10:30 EKG [email or web address] Vomiting No 01/05/24 10:30 EKG [email or web address] Anesthesia Postop Eval I: Fluid Summary Crystalloid volume administer 1,000 01/05/24 10:30 EKG [email or web address] (ml) Colloids volume administered ( ml) Blood Product volume administered (ml) Total IV fluid infused 1,000 01/05/24 10:30 EKG [email or web address] Anesthesia Postop Eval I: Summary Notes Anesthesia Complication No 01/05/24 10:30 [email or web address] [email or web address] Anesthesia Complication Comment: Post-operative progress note Anesthesia: Postop Eval II Evaluation Mental status: Awake and Calm Pain Level: 1 nausea: No Vomiting: No Complications Anesthesia Complication: No
--- NOTE | 2024-01-05 17:07 | PCM.POSTANE2 ---
Anesthesia Postop Eval I Sum Postop Eval Completion status Anesthesia document: Postop Eval 1 completed: Yes Anesthesia Postop Eval I Summary Anesthesia Postop Eval I Summary: Anesthesia Postop Eval I: Assessment Summary Airway patent Yes 01/05/24 10:30 [email or web address] Spontaneous unlabored Yes 01/05/24 10:30 [email or web address] respirations Mental status Awake,Calm 01/05/24 10:30 [email or web address] nausea No 01/05/24 10:30 [email or web address] Vomiting No 01/05/24 10:30 [email or web address] Anesthesia Postop Eval I: Fluid Summary Crystalloid volume administer 1,000 01/05/24 10:30 [email or web address] (ml) Colloids volume administered ( ml) Blood Product volume administered (ml) Total IV fluid infused 1,000 01/05/24 10:30 [email or web address] Anesthesia Postop Eval I: Summary Notes Anesthesia Complication No 01/05/24 10:30 [email or web address] Anesthesia Complication Comment: Post-operative progress note Anesthesia: Postop Eval II Evaluation Mental status: Awake and Calm Pain Level: 1 nausea: No Vomiting: No Complications Anesthesia Complication: No
== END 2024-01-05 15:02 | disposition home or self-care (01) ==
LOC: SDC 05:20 → AC 05:20
PROVIDERS: Anesthesiology; PCP Family Medicine; Referring Provider Obstetrics & Gynecology; Visit Provider Obstetrics & Gynecology
PROC: 0UT9FZZ Resection of Uterus, Via Natural or Artificial Opening With Percutaneous Endoscopic Assistance (ICD-10-PCS; CPT 58550; principal; 2024-01-05 07:05)
DX: N80.03 Adenomyosis of the uterus (principal); E11.9 Type 2 diabetes mellitus without complications; N95.0 Postmenopausal bleeding; Z79.84 Long term (current) use of oral hypoglycemic drugs; I10 Essential (primary) hypertension; Z85.3 Personal history of malignant neoplasm of breast; Z90.13 Acquired absence of bilateral breasts and nipples; N72 Inflammatory disease of cervix uteri; N83.8 Other noninflammatory disorders of ovary, fallopian tube and broad ligament; N83.292 Other ovarian cyst, left side; Z79.899 Other long term (current) drug therapy; D25.9 Leiomyoma of uterus, unspecified
CPT/HCPCS: 58550; 00944; 36415; 82962; 83036; 83735; 85025; 85027; 86850; 86900; 86901; 88307; J2405; J3475